=== PATIENT | female | born 1980 | race Caucasian/White ===

== ENCOUNTER 2023-01-10 19:26 | Emergency (ER) | payer SELFPAY ==
[2023-01-10 20:59] LABS: SARS-COV-2 RT PCR NEGATIVE (NEGATIVE)
--- NOTE | 2023-01-10 21:26 | EDPHYS ---
Physician Documentation [facility] Name: Lilliam Leahy Age: 42 yrs Sex: Female : 1980 Arrival Date: 01/10/2023 Time: 19:30 Bed 9 Private MD: ED Physician Hamlet Lopez HPI: 01/10 20:37 This 42 yrs old Female presents to ER via Ambulatory with complaints of Headache, Ear kb Pain, Sore Throat. 20:37 The patient presents with pain, mild. The complaints affect the right ear and left ear. kb Onset: The symptoms/episode began/occurred today. Modifying factors: The symptoms are alleviated by nothing, the symptoms are aggravated by nothing. Associated signs and symptoms: Pertinent positives: headache, sore throat. Severity of symptoms: At their worst the symptoms were mild in the emergency department the symptoms are unchanged. The patient has not experienced similar symptoms in the past. The patient has not recently seen a physician. Historical: - Allergies: 20:02 PENICILLINS; aa9 - PMHx: 20:02 neuropathy; aa9 - PSHx: 20:02 Total abdominal hysterectomy; Tonsillectomy; back sx; aa9 - Immunization history:: Client reports having NOT received the Covid vaccine. - Social history:: Smoking status: Patient reports the use of cigarette tobacco products, smokes one pack cigarettes per day. ROS: 20:37 Constitutional: Negative for fever, chills, and weight loss. kb 20:37 ENT: Positive for ear pain, sore throat. 20:37 Neuro: Positive for headache. 20:37 All other systems are negative. Exam: 20:37 Constitutional: This is a well developed, well nourished patient who is awake, alert, kb and in no acute distress. Head/Face: Normocephalic, atraumatic. Cardiovascular: Regular rate and rhythm with a normal S1 and S2. No gallops, murmurs, or rubs. No pulse deficits. Respiratory: Respirations even and unlabored. No increased work of breathing. Talking in full sentences Abdomen/GI: Soft, non-tender. No distention Skin: Warm, dry with normal turgor. Normal color. MS/ Extremity: Pulses equal, no cyanosis. Neurovascular intact. Full, normal range of motion. Neuro: Awake and alert, GCS 15, oriented to person, place, time, and situation. Moves all extremities. Normal gait. 20:37 ENT: Posterior pharynx: Airway: normal, no evidence of obstruction, swelling, is not appreciated, erythema, that is moderate, exudate, is not appreciated. Vital Signs: 20:01 Weight 72.57 kg (R); Height 5 ft. 4 in. (R); Pain 2/10; aa9 20:13 BP 100 / 73; Pulse 92; Resp 17 S; Temp 97.8(O); Pulse Ox 99% on R/A; aa9 20:01 Body Mass Index 27.46 (72.57 kg, 162.56 cm) aa9 20:01 Pain Scale: Adult aa9 MDM: 19:45 Patient medically screened. kb 20:38 Differential diagnosis: otitis media, otitis externa, ruptured TM, acute otalgia, kb strep, pharyngitis. Data reviewed: vital signs, nurses notes. 21:00 Counseling: I had a detailed discussion with the patient and/or guardian regarding: the kb historical points, exam findings, and any diagnostic results supporting the discharge/admit diagnosis, lab results, the need for outpatient follow up, a family practitioner, to return to the emergency department if symptoms worsen or persist or if there are any questions or concerns that arise at home. 01/10 19:51 Order name: Strep; Complete Time: 20:46 kb 01/10 19:51 Order name: COVID-19/FLU A+B; Complete Time: 21:00 kb 01/10 20:46 Order name: Throat Culture EDMS Administered Medications: No medications were administered Disposition: 01/11 07:14 Co-signature as Attending Physician, Hamlet Lopez MD I reviewed the patient's care sp4 provided by the Advanced Practice Provider and agree with the diagnosis and treatment plan. Disposition Summary: 01/10/23 21:01 Discharge Ordered Location: Home kb Condition: Stable kb Diagnosis - Acute pharyngitis, unspecified kb Followup: kb - With: Emergency Department - When: As needed - Reason: Worsening of condition Followup: kb - With: Private Physician - When: 2 - 3 days - Reason: Recheck today's complaints, Continuance of care, Re-evaluation by your physician Discharge Instructions: - Discharge Summary Sheet kb - Pharyngitis, [id number] kb Forms: - Medication Reconciliation Form kb - Thank You Letter kb - Antibiotic Education kb - Prescription Opioid Use kb Signatures: Dispatcher [employer] Saritha Morris, Heena Najera, RN RN aa9 Hamlet Lopez MD MD sp4
--- NOTE | 2023-01-10 21:26 | ER ---
Nurse's Notes [facility] Name: Lilliam Leahy Age: 42 yrs Sex: Female : 1980 Arrival Date: 01/10/2023 Time: 19:30 Bed 9 Private MD: Diagnosis: Acute pharyngitis, unspecified Presentation: 01/10 20:01 Chief complaint: Patient states: I have a headache and both ears hurt that started aa9 today, and I have a sore throat. no fever of chills. Coronavirus screen: Vaccine status: Patient reports being unvaccinated. Ebola Screen: No symptoms or risks identified at this time. Initial Sepsis Screen: Does the patient meet any 2 criteria? No. Patient's initial sepsis screen is negative. Does the patient have a suspected source of infection? No. Patient's initial sepsis screen is negative. Risk Assessment: Do you want to hurt yourself or someone else? Patient reports no desire to harm self or others. Onset of symptoms was January 10, 2023. 20:01 Method Of Arrival: Ambulatory aa9 20:01 Acuity: SOFY 4 aa9 Triage Assessment: 21:05 General: Appears in no apparent distress. comfortable, Behavior is calm, cooperative. aa9 Pain: Pain began 2-3 days ago. Also complains of no other associated symptoms. Historical: - Allergies: 20:02 PENICILLINS; aa9 - PMHx: 20:02 neuropathy; aa9 - PSHx: 20:02 Total abdominal hysterectomy; Tonsillectomy; back sx; aa9 - Immunization history:: Client reports having NOT received the Covid vaccine. - Social history:: Smoking status: Patient reports the use of cigarette tobacco products, smokes one pack cigarettes per day. Screenin:14 [facility] ED Fall Risk Assessment (Adult) History of falling in the last 3 months, aa9 including since admission No falls in past 3 months (0 pts) Confusion or Disorientation No (0 pts) Intoxicated or Sedated No (0 pts) Impaired Gait No (0 pts) Mobility Assist Device Used No (0 pt) Altered Elimination No (0 pt) Score/Fall Risk Level 0 - 2 = Low Risk Oriented to surroundings, Maintained a safe environment. Abuse screen: Denies threats or abuse. Denies injuries from another. Nutritional screening: No deficits noted. Tuberculosis screening: No symptoms or risk factors identified. Assessment: 20:13 General: Appears in no apparent distress. slender, well groomed, Behavior is calm, aa9 cooperative. Pain: Complains of pain in scalp, right ear and left ear Pain currently is 2 out of 10 on a pain scale. Neuro: Level of Consciousness is awake, alert, obeys commands, Oriented to person, place, time, situation. Cardiovascular: Patient's skin is warm and dry. Respiratory: Airway is patent Respiratory effort is even, unlabored. 21:05 Reassessment: Patient appears in no apparent distress at this time. Patient and/or aa9 family updated on plan of care and expected duration. Pain level reassessed. Patient is alert, oriented x 3, equal unlabored respirations, skin warm/dry/pink. Patient states symptoms have improved. Vital Signs: 20:01 Weight 72.57 kg (R); Height 5 ft. 4 in. (R); Pain 2/10; aa9 20:13 BP 100 / 73; Pulse 92; Resp 17 S; Temp 97.8(O); Pulse Ox 99% on R/A; aa9 20:01 Body Mass Index 27.46 (72.57 kg, 162.56 cm) aa9 20:01 Pain Scale: Adult aa9 ED Course: 19:30 Patient arrived in ED. ja2 19:30 Saritha Stiles FNP-C [facility]. kb 19:30 Hamlet Lopez MD is Attending Physician. kb 20:01 Heena Duarte, RN is Primary Nurse. aa9 20:02 Triage completed. aa9 20:03 Arm band placed on. aa9 20:14 Patient has correct armband on for positive identification. Bed in low position. Call aa9 light in reach. 21:05 No provider procedures requiring assistance completed. Patient did not have IV access aa9 during this emergency room visit. Administered Medications: No medications were administered Medication: 21:06 VIS not applicable for this client. aa9 Outcome: 21:01 Discharge ordered by . kb 21:06 Discharged to home ambulatory. aa9 21:06 Condition: stable 21:06 Discharge instructions given to patient, Instructed on discharge instructions, follow up and referral plans. Demonstrated understanding of instructions, follow-up care. 21:06 Patient left the ED. aa9 Signatures: Saritha Stiles FNP-C [employer] Maite Sevilla Aylin, RN RN aa9
[2023-01-10 21:53] VITALS: BP 100/73; TEMP 97.8; O2SAT 99
== END 2023-01-10 21:06 | disposition home or self-care (01) ==
LOC: ER 19:26
DX: J02.9 Acute pharyngitis, unspecified (principal); Z20.822 Contact with and (suspected) exposure to COVID-19
CPT/HCPCS: 0240U; 87070; 87081; 99281

== ENCOUNTER 2023-02-20 18:14 | Emergency (ER) | payer OTHER ==
--- OUTSIDE RECORDS SUMMARY | 2023-02-20 18:18 | XMS REPORT | Continuity of Care Document ---
:1980 Author Organization [facility] t Address [address] [facility] [address] [place] [address] Care Team Providers Name Role Phone ROGER MAYS Primary Care Physician Unavailable WAQAR ALBA APRN Attending Clinician Unavailable JUANITA OVERTON Attending Clinician Unavailable YULIANA KINCAID Attending Clinician Unavailable MICHELLE MACK Attending Clinician Unavailable MEERA MUSA Attending Clinician Unavailable Payers Payer Name Policy Type Policy Number Effective Date Expiration Date S jatin HARDWICKTNA MP CVS 9 [id number] 2023 00:00:00 [place] [address]: [facility] Problems Condition Condition Condition Status Onset Resolution Last Treating Co mments Source Name Details Category Date Date Treatment Clinician Date Vaginitis Problem Inactiv CYRIL TU e S Health Fracture Problem Inactiv TREVER U of distal e S phalanx of Health toe of left foot Urinary Problem Active [facility] tract S infection Health Toothache Problem Active TREVER U S Health Contusion Problem Active TREVER U of forearm S Health Fracture Problem Inactiv TREVER U of distal e S end of Health right fibula Conjunctiv Problem Inactiv CH[facility] TOLU itis e S Health Otitis Problem Inactiv [facility] media e S Health Back pain Problem Inactiv CYRIL TU e S Health Allergies, Adverse Reactions, Alerts Allergy Allergy Status Severity Reaction(s) Onset Inactive Treating Comm ents Source Name Type Date Date Clinician Penicill Allergy Active Unknown 2020-10 TREVER U in to 0-06 S substanc 00:00: Health e 00 Penicill Allergy Active Unknown TREVER U in to 3-22 S substanc 00:00: Health e 00 Penicill Allergy Active Unknown 2018-10 TREVER U in to 0-02 S substanc 00:00: Health e 00 Social History Social Habit Start Date Stop Date Quantity Comments Source History of tobacco [facility] Health use Sex Assigned At [birth year] Female [facility] 00:[facility]:00 00:00:00 Smoking Status Start Date Stop Date Source Smokes tobacco daily (finding) 2021-07-25 20:24:00 [facility] Medications Ordered Filled Start Stop Current Ordering Indication Dosage Frequency Signature Comments Components Source Medication Medication Date Date Medication? Clinician (SIG) Name Name Doxycycline No 100mg Twice A [facility] Monohydrate 3-22 Day S (Doxycyclin 14:59: Health e) 100 Mg 00 CAPSULE Metronidazo No 500mg Twice A [facility] le (Flagyl) 3-22 Day S 500 Mg TAB 14:59: Health 00 Doxycycline No 100mg Twice A [facility] Monohydrate 3-22 Day S (Doxycyclin 14:59: Health e) 100 Mg 00 CAPSULE Metronidazo 2020- No 500mg Twice A C [facility]RISTU le (Flagyl) - 04-02 Day S 500 Mg TAB 14:59: 00:00 Health 00 :00 Methylpredn 2020-0 No 1 As TREVER U isolone 1-16 Directed S (Medrol 04:01: Health Pack) 21 00 Tab/Dspk TAB Methylpredn 2020-0 No 1 As TREVER U isolone 1-16 Directed S (Medrol 04:01: Health Pack) 21 00 Tab/Dspk TAB Cefuroxime 2020-0 No 500mg Twice A [facility] ISTU Axetil 1-16 Day S (Ceftin) 04:01: Health 500 Mg TAB 00 Meloxicam 0 No 15mg Daily as CH[facility] TOLU (Mobic) 15 1-16 needed for S Mg TAB 04:01: Pain Health 00 Methylpredn 2020-0 No 1 As TREVER U isolone 1-16 Directed S (Medrol 04:01: Health Dose-Pack) 00 21 Tab/Dspk TAB Meloxicam 2020-0 2020- No 15mg Daily as [facility] (Mobic) 15 1-16 02-16 needed for S Mg TAB 04:01: 00:00 Pain Health 00 :00 Meloxicam 2020-0 2020- No 15mg Daily as [facility] (Mobic) 15 1-16 02-16 needed for S Mg TAB 04:01: 00:00 Pain Health 00 :00 Cefuroxime 2020- No 500mg Twice A [facility] Axetil 11-04 Day S (Ceftin) 04:01: 00:00 Health 500 Mg TAB 00 :00 Cefuroxime 2020- No 500mg Twice A [facility] Axetil 11-04 Day S (Ceftin) 04:01: 00:00 Health 500 Mg TAB 00 :00 Gentamicin 2018-10 No 1 Three TREVER U Sulfate 0-02 Times A S (Garamycin 11:23: Day Health Oph Oint) 00 3.5 Gm OINT..GM. Meclizine 2018-10 No 25mg Three [facility] Hcl 0-02 Times A S (Antivert) 11:23: Day as Healt h 25 Mg TAB 00 needed for Dizziness Gentamicin 2018-10 No 1 Three TREVER U Sulfate 0-02 Times A S (Garamycin 11:23: Day Health Oph Oint) 00 3.5 Gm OINT..GM. Meclizine 2018-10 No 25mg Three [facility] Hcl 0-02 Times A S (Antivert) 11:23: Day as Healt h 25 Mg TAB 00 needed for Dizziness Azithromyci 2018-10 No 1 As TREVER U n 0-02 Directed S 11:23: Health 00 Gentamicin 2019 No 1 Three TREVER U Sulfate 0-02 Times A S 11:23: Day Health 00 Meclizine 2018-10 No 25mg Three [facility] Hcl 0-02 Times A S 11:23: Day as Health 00 needed for Dizziness Gentamicin 2019 No 1 Three TREVER U Sulfate 0-02 Times A S (Garamycin 11:23: Day Health Oph Oint) 00 3.5 Gm OINT..GM. Meclizine 2018-10 No 25mg Three [facility] Hcl 0-02 Times A S (Antivert) 11:23: Day as Healt h 25 Mg TAB 00 needed for Dizziness Azithromyci 2019 2019- No 1 As CYRIL LEMOS n 0-02 11-02 Directed S (Zithromax 11:23: 00:00 Health Z-James) 6 00 :00 Tab/Pkg TAB Azithromyci 2019 2019- No 1 As CYRIL mullins 0-02 11-02 Directed S (Zithromax 11:23: 00:00 Health Z-James) 6 00 :00 Tab/Pkg TAB Azithromyci 2018-10- No 1 As CYRIL TU n 0-02 11-02 Directed S (Zithromax 11:23: 00:00 Health Z-James) 6 00 :00 Tab/Pkg TAB Acetaminoph 2019- No 1 Every 6 [facility] en/Codeine 03-14 10-02 Hours S Phosphate 13:50: 00:00 Health (Tylenol 00 :00 #3) 1 Tab TAB Acetaminoph 2018- No 1 Every 6 [facility] en/Codeine 03-14 10-02 Hours S Phosphate 13:50: 00:00 Health (Tylenol 00 :00 #3) 1 Tab TAB Acetaminoph 2018- No 1 Every 6 [facility] en/Codeine 03-14 10-02 Hours S Phosphate 13:50: 00:00 Health (Tylenol 00 :00 #3) 1 Tab TAB Acetaminoph 2013-10- No 1 Every 6 [facility] en/Codeine 11-03 Hours as S Phosphate 15:47: 00:00 needed for H ealth (Tylenol 00 :00 Moderate #3) 1 Tab To Severe TAB Pain(4-10) Clindamycin 2013-10- No 300mg Four Times [facility] Hcl 11-03 Daily S (Cleocin) 15:47: 00:00 Health 300 Mg CAP 00 :00 Acetaminoph 2013-10- No 1 Every 6 CH [facility] en/Codeine 11-03 Hours as S Phosphate 15:47: 00:00 needed for H ealth (Tylenol 00 :00 Moderate #3) 1 Tab To Severe TAB Pain(4-10) Clindamycin 2013-10- No 300mg Four Times [facility] Hcl 11-03 Daily S (Cleocin) 15:47: 00:00 Health 300 Mg CAP 00 :00 Acetaminoph 2013-10- No 1 Every 6 CH [facility] en/Codeine 11-03 Hours as S Phosphate 15:47: 00:00 needed for H ealth (Tylenol 00 :00 Moderate #3) 1 Tab To Severe TAB Pain(4-10) Clindamycin 2013-10- No 300mg Four Times [facility] Hcl 11-03 Daily S (Cleocin) 15:47: 00:00 Health 300 Mg CAP 00 :00 Tramadol 2013-10- No 50mg Every 6 CYRIL TU Hcl 10-2219 Hours as S (Ultram) 50 14:00: 00:00 needed for Health Mg TAB 00 :00 Pain Tramadol 2013-10- No 50mg Every 6 CYRIL TU Hcl 10-2219 Hours as S (Ultram) 50 14:00: 00:00 needed for Health Mg TAB 00 :00 Pain Tramadol 2013-10- No 50mg Every 6 CYRIL TU Hcl 10-2219 Hours as S (Ultram) 50 14:00: 00:00 needed for Health Mg TAB 00 :00 Pain Nitrofurant 2013-10- No 100mg Twice A C HRISTU oin 10-22 Day S Macrocrysta 14:00: 00:00 Healt h ls 00 :00 (Macrobid) 100 Mg CAP Nitrofurant 2013-10- No 100mg Twice A C [facility]RISTU oin 10-22 Day S Macrocrysta 14:00: 00:00 Healt h ls 00 :00 (Macrobid) 100 Mg CAP Nitrofurant 2013-10- No 100mg Twice A C [facility]RIST[facility] oin 10-22 Day S Macrocrysta 14:00: 00:00 Healt h ls 00 :00 (Macrobid) 100 Mg CAP Gabapentin No 600mg Twice A (Neurontin) Day S 600 Mg TAB Health Lorazepam No 1mg Bedtime [facility] (Ativan) 1 S Mg TAB Health Venlafaxine No 75mg Daily [facility] Hcl S (Effexor Health Xr) 75 Mg CAPCR Acetaminoph No 1 Three [facility] en/Hydrocod Times A S one Bit Day Health Cyclobenzap No 10mg Bedtime rine Hcl S Health Estradiol No 1mg Bedtime [facility] S Health Gabapentin No 600mg Twice A CYRIL Day S Health Lorazepam No 1mg Bedtime [facility] Health Venlafaxine No 75mg Daily [facility] Hcl S Health Acetaminoph No 1 Three [facility] en/Hydrocod Times A S one [facility] 10/325) 1 Tab TAB Cyclobenzap No 10mg Bedtime CYRIL TU rine Hcl S (Flexeril) Health 10 Mg TAB Estradiol No 1mg Bedtime [facility] (Estrace) 1 S Mg TAB Health Gabapentin No 600mg Twice A (Neurontin) Day S 600 Mg TAB Health Lorazepam No 1mg Bedtime [facility] (Ativan) 1 S Mg TAB Health Venlafaxine No 75mg Daily [facility] Hcl S (Effexor Health Xr) 75 Mg CAPCR Acetaminoph No 1 Three [facility] en/Hydrocod Times A S one [facility] ([place] [address]) 1 Tab TAB Cyclobenzap No 10mg Bedtime rine Hcl S (Flexeril) Health 10 Mg TAB Estradiol No 1mg Bedtime [facility] (Estrace) 1 S Mg TAB Health Gabapentin No 600mg Twice A (Neurontin) Day S 600 Mg TAB Health Lorazepam No 1mg Bedtime [facility] (Ativan) 1 S Mg TAB Health Venlafaxine No 75mg Daily [facility] Hcl S (Effexor Health Xr) 75 Mg CAPCR Acetaminoph No 1 Three [facility] en/Hydrocod Times A S one [facility] ([place] [address]) 1 Tab TAB Cyclobenzap No 10mg Bedtime rine Hcl S (Flexeril) Health 10 Mg TAB Estradiol No 1mg Bedtime [facility] (Estrace) 1 S Mg TAB Health Esomeprazol 2019- No 40mg Bedtime CHRI TOLU e Magnesium 10-02 S (Nexium) 40 00:00 Health Mg CAPCR :00 Gabapentin 2019- No 300mg Twice A CH[facility] TOLU (Neurontin) 10- Day S 300 Mg CAP 00:00 Health :00 Esomeprazol 2019- No 40mg Bedtime CHRI [facility] e Magnesium 10-02 S (Nexium) 40 00:00 Health Mg CAPCR :00 Gabapentin 2019- No 300mg Twice A CH[facility] (Neurontin) 10-02 Day S 300 Mg CAP 00:00 Health :00 Esomeprazol 2019- No 40mg Bedtime CHRI [facility] e Magnesium 10-02 S (Nexium) 40 00:00 Health Mg CAPCR :00 Gabapentin 2019- No 300mg Twice A CH[facility] (Neurontin) 10-02 Day S 300 Mg CAP 00:00 Health :00 Cyclobenzap 2015- No 10mg Twice A [facility] rine Hcl 03-19 Day S (Flexeril) 00:00 Health 10 Mg TAB :00 Gabapentin 2015- No 300mg Three TREVER U (Neurontin) -19 Times A S 300 Mg CAP 00:00 Day Health :00 Lorazepam 2015- No .5mg Twice A TREVER U (Ativan) 01-05 Day S 0.5 Mg TAB 00:00 Health :00 Omeprazole 2015- No 40mg Bedtime CYRIL LEMOS (Prilosec) 01-05 S 40 Mg CPDR 00:00 Health :00 Cyclobenzap 2015- No 10mg Twice A CH[facility]U rine Hcl 01-05 Day S (Flexeril) 00:00 Health 10 Mg TAB :00 Gabapentin 2015- No 300mg Three TREVER U (Neurontin) - Times A S 300 Mg CAP 00:00 Day Health :00 Lorazepam 2015- No .5mg Twice A TREVER U (Ativan) 01-05 Day S 0.5 Mg TAB 00:00 Health :00 Omeprazole 2015- No 40mg Bedtime CYRIL LEMOS (Prilosec) 01-05 S 40 Mg CPDR 00:00 Health :00 Cyclobenzap 2015- No 10mg Twice A [facility] rine Hcl 01-05 Day S (Flexeril) 00:00 Health 10 Mg TAB :00 Gabapentin 2015- No 300mg Three TREVER U (Neurontin) 01-05 Times A S 300 Mg CAP 00:00 Day Health :00 Lorazepam 2015- No .5mg Twice A TREVER U (Ativan) 01-05 Day S 0.5 Mg TAB 00:00 Health :00 Omeprazole 2015- No 40mg Bedtime CYRIL LEMOS (Prilosec) 01-05 S 40 Mg CPDR 00:00 Health :00 Miscellaneo 2014- No 0 Xx For [facility] 11-15 Order Sets S Information 00:00 Health (No Home :00 Meds) [facility] Miscellaneo 2014- No 0 Xx For [facility] 11-15 Order Sets S Information 00:00 Health (No Home :00 Meds) [facility] Miscellaneo 2014- No 0 Xx For [facility] 11-15 Order Sets S Information 00:00 Health (No Home :00 Meds) [facility] Vital Signs Vital Name Observation Time Observation Value Comments Source BP Diastolic 2021-07-25 18:08:00 86 mm[Hg] [facility] BP Systolic 2021-07-25 18:08:00 116 mm[Hg] [facility] Heart Rate 2021-07-25 18:08:00 96 /min [facility] Respiratory rate 2021-07-25 18:08:00 20 /min [facility] Body Temperature 2021-07-25 18:08:00 98.3 [degF] [facility] BP Diastolic 2021-01-08 13:55:00 72 mm[Hg] [facility] BP Systolic 2021-01-08 13:55:00 109 mm[Hg] [facility] Heart Rate 2021-01-08 13:55:00 76 /min [facility] Respiratory rate 2021-01-08 13:55:00 20 /min [facility] Body Temperature 2021-01-08 13:55:00 98.3 [degF] [facility] Heart Rate 2020-11-04 05:26:00 87 /min [facility] Respiratory rate 2020-11-04 05:26:00 20 /min [facility] Body Temperature 2020-11-04 05:26:00 98.5 [degF] [facility] BP Diastolic 2020-11-04 05:26:00 55 mm[Hg] [facility] BP Systolic 2020-11-04 05:26:00 99 mm[Hg] [facility] BP Diastolic 2020-11-04 03:37:00 71 mm[Hg] [facility] BP Systolic 2020-11-04 03:37:00 124 mm[Hg] [facility] Heart Rate 2020-11-04 03:37:00 96 /min [facility] Respiratory rate 2020-11-04 03:37:00 20 /min [facility] Body Temperature 2020-11-04 03:37:00 98.5 [degF] [facility] Body Temperature 2019-07-21 12:00:00 98.4 [degF] [facility] Heart Rate 2019-07-21 12:00:00 84 /min [facility] Respiratory rate 2019-07-21 12:00:00 18 /min [facility] BP Systolic 2019-07-21 12:00:00 95 mm[Hg] [facility] BP Diastolic 2019-07-21 12:00:00 52 mm[Hg] [facility] Heart Rate 2019-07-21 11:41:00 84 /min [facility] Respiratory rate 2019-07-21 11:41:00 18 /min [facility] BP Systolic 2019-07-21 11:41:00 95 mm[Hg] [facility] BP Diastolic 2019-07-21 11:41:00 52 mm[Hg] [facility] Weight 2019-07-21 10:06:00 165 [lb_av] [facility] BMI (Body Mass Index) 2019-07-21 10:06:00 28.3 kg/m2 [facility] Procedures Procedure Date / Time Performed Performing Clinician Sour e X-ray of foot, three or 2021-07-25 00:00:00 [facility] [employer] more views Encounters Start End Encounter Admission Attending Care Care Encounter Source Date/Time Date/Time Type Type Clinicians Facility Department ID 2021-01-08 Inpatient TERRIE BROOKE [id number] [facility] 09:00:[address] [place] [address] 2023-03-20 2023-03-20 Outpatient NAOMI OVERTON [id number] Naomi 15:30:00 15:30:00 JUANITA allred 2022-09-22 2022-09-22 Emergency ER TERRIE KINCAID [id number] [facility] 17:29:00 22:00:00 YULIANA [id number] S Health 2021-07-25 2021-07-25 Departed ER TERRIE MACK [id number] [facility] 18:43:00 20:30:00 Emergency MICHELLE [address] [facility] 2021-01-08 2021-01-08 Departed [facility] EA07 [id number] [facility] 15:00:00 16:42:00 Emergency AT [facility] [address] [facility] 2020-11-04 2020-11-04 Departed TERRIE MUSA [id number] [facility] 03:37:00 05:22:00 Emergency ESTES [address] [facility] 2019-07-21 2019-07-21 Departed [facility] EA07 [id number] [facility] 10:49:00 11:48:00 Emergency AT [facility] [address] Room Health Results Test Description Test Time Test Comments Results Result Comments Source Urine color determination 2021-01-08 14:41:00 Test Item Value Reference Range Interpretation Comme nts Urine Color (test code = 5778-6) YELLOW STR/YELLOW [facility] urine appearance [id number] 14:41:00 Test Item Value Reference Range Interpretation Comments Urine Appearance (test code = 5767-9) CLEAR CLEAR [facility] pH measurement by test [id number] 14:41:00 Test Item Value Reference Range Interpretation Comments Urine pH (test code = 5803-2) 7.0 5.0-8.0 [facility] gravity of Urine by Test [id number] 14:41:00 Test Item Value Reference Range Interpretation Comments Urine Specific [place] (test code = 1.010 1.005-1.030 5811-5) [facility] protein measurement by automated test strip (mass/volume) 2021-01-08 14:41:00 Test Item Value Reference Range Interpretation Comments Urine Protein (test code = 33038-8) NEGATIVE NEGATIVE [facility] glucose measurement by automated test strip (mass/volume) 2021-01-08 14:41:00 Test Item Value Reference Range Interpretation Comments Urine Glucose (UA) (test code = NEGATIVE NEGATIVE 90550-2) [facility] ketones measurement by test strip (mass/volume)2021-01-08 14:41:00 Test Item Value Reference Range Interpretation Comments Urine Ketones (test code = 5797-6) NEGATIVE NEGATIVE [facility] erythrocytes count by automated test strip (number/volume) 2021-01-08 14:41:00 Test Item Value Reference Range Interpretation Comments Urine Occult Blood (test code = NEGATIVE NEGATIVE 80390-7) [facility] nitrite detection by automated test [id number] 14:41:00 Test Item Value Reference Range Interpretation Comments Urine Nitrite (test code = 77858-2) NEGATIVE NEGATIVE [facility] total bilirubin detection by test [id number] 14:41:00 Test Item Value Reference Range Interpretation Comments Urine Bilirubin (test code = 5770-3) NEGATIVE NEGATIVE [facility] urobilinogen measurement by automated test strip (mass/volume)2021-01-08 14:41:00 Test Item Value Reference Range Interpretation Comments Urine Urobilinogen (test code = 0.2 0.2-1.0 20274-3) [facility] leukocyte esterase detection by automated test strip 2021-01-08 14:41:00 Test Item Value Reference Range Interpretation Comments Urine Leukocyte Esterase (test code NEGATIVE NEGATIVE = 19412-1) [facility] comment 14:41:00 Test Item Value Reference Range Interpretation Comments Urine Culture Indicated (test code = YES 8265-1) [facility] comment 14:41:00 Test Item Value Reference Range Interpretation Comments Urine Culture Reflexed NO,C&S NOT INDICATED (test code = 8266-9) [facility] HealthUrinalysis specimen collection [id number] 14:41:00 Test Item Value Reference Range Interpretation Comments Urine Collection Type (test code = VOIDED 56522-1) [facility] beta-human chorionic gonadotropin (BhCG) detection 2021-01-08 14:41:00 Test Item Value Reference Range Interpretation Comments Urine Test (test code = NEGATIVE NEGATIVE 2-1) [facility] color [id number] 03:50:00 Test Item Value Reference Range Interpretation Comments Urine Color (test code = 5778-6) YELLOW STR/YELLOW [facility] urine appearance [id number] 03:50:00 Test Item Value Reference Range Interpretation Comments Urine Appearance (test code = 5767-9) CLEAR CLEAR [facility] pH measurement by test [id number] 03:50:00 Test Item Value Reference Range Interpretation Comments Urine pH (test code = 5803-2) 8.0 5.0-8.0 [facility] gravity of Urine by Test [id number] 03:50:00 Test Item Value Reference Range Interpretation Comments Urine Specific [place] (test code = 1.010 1.005-1.030 5811-5) [facility] protein measurement by automated test strip (mass/volume) 2020-11-04 03:50:00 Test Item Value Reference Range Interpretation Comments Urine Protein (test code = 05735-7) NEGATIVE NEGATIVE [facility] glucose measurement by automated test strip (mass/volume) 2020-11-04 03:50:00 Test Item Value Reference Range Interpretation Comments Urine Glucose (UA) (test code = NEGATIVE NEGATIVE 84925-3) [facility] ketones measurement by test strip (mass/volume)2020-11-04 03:50:00 Test Item Value Reference Range Interpretation Comments Urine Ketones (test code = 5797-6) NEGATIVE NEGATIVE [facility] count by automated test strip (number/volume) 2020-11-04 03:50:00 Test Item Value Reference Range Interpretation Comments Urine Occult Blood (test code = NEGATIVE NEGATIVE 14688-4) [facility] nitrite detection by automated test [id number] 03:50:00 Test Item Value Reference Range Interpretation Comments Urine Nitrite (test code = 43323-7) NEGATIVE NEGATIVE [facility] total bilirubin detection by test [id number] 03:50:00 Test Item Value Reference Range Interpretation Comments Urine Bilirubin (test code = 5770-3) NEGATIVE NEGATIVE [facility] urobilinogen measurement by automated test strip (mass/volume)2020-11-04 03:50:00 Test Item Value Reference Range Interpretation Comments Urine Urobilinogen (test code = 0.2 0.2-1.0 63716-2) [facility] esterase detection by automated test strip 2020-11-04 03:50:00 Test Item Value Reference Range Interpretation Comments Urine Leukocyte Esterase (test code NEGATIVE NEGATIVE = 96357-1) [facility] 03:50[facility]00 Test Item Value Reference Range Interpretation Comments Urine Culture Indicated (test code = YES 8265-1) [facility] 03:50:00 Test Item Value Reference Range Interpretation Comments Urine Culture Reflexed NO,C&S NOT INDICATED (test code = 8266-9) [facility] Center[facility] specimen collection [id number] 03:50:00 Test Item Value Reference Range Interpretation Comments Urine Collection Type (test code = VOIDED 65378-3) [facility] beta-human chorionic gonadotropin (BhCG) detection 2020-11-04 03:50:00 Test Item Value Reference Range Interpretation Comments Urine Test (test code = NEGATIVE NEGATIVE 2-1) [facility]
[2023-02-20] MEDS ORDERED: NA CHLORIDE 0.9% 1,000 ML ONE ×2 (20:09→22:28)
[2023-02-20] MEDS ORDERED: ONDANSETRON 4 MG/2 ML VIAL ONE (20:09)
[2023-02-20] MEDS ORDERED: FAMOTIDINE 20 MG/2 ML VIAL IV ONE (20:09)
[2023-02-20 20:33] LABS: Absolute Lymphocytes (CBC) 6.1 K/uL (0.7-4.9); Hematocrit 39.6 % (36.0-45.0); Lymphocytes % 39.1 % (15.3-44.8); MCV 91.8 fL (80-100); MPV 8.1 fL (7.6-11.3); RBC Red Blood Cell Count 4.31 M/uL (3.86-4.86)
[2023-02-20 21:02] LABS: Specific Gravity 1.007 (1.005-1.030); Urine Bilirubin NEGATIVE (Negative); Urine Blood Negative (Negative); Urine Clarity Clear (Clear); Urine Color Colorless (Yellow); Urine Glucose NEGATIVE (Negative); Urine Protein NEGATIVE (Negative); Urine Urobilinogen Normal (Normal); Urine pH 7.5 (5.0-7.0)
[2023-02-20 21:02] LABS: Albumin 3.6 g/dL (3.4-5.0); Bilirubin Total 0.3 mg/dL (0.2-1.0); Potassium 3.7 mEq/L (3.5-5.1); Protein, Total 7.4 g/dL (6.4-8.2)
--- NOTE | 2023-02-20 21:25 | RAD REPORT ---
EXAM DESCRIPTION: CTAbdomen Pelvis W Contrast - 02/20/2023 9:12 pm CLINICAL HISTORY: Abdominal pain. ABD PAIN COMPARISON: <Comparisons> TECHNIQUE: Biphasic CT imaging of the abdomen and pelvis was performed with 100 ml non-ionic IV cont rast. All CT scans are performed using dose optimization technique as appropriate and may include automated exposure control or mA/KV adjustment according to patient size. FINDINGS: The lung bases are clear. The liver, spleen, pancreas, adrenal glands and kidneys are within normal limits. No bowel obstruction, free air, free fluid or abscess. There is significant retained stool throughout the colon. The appendix is normal. No evidence of significant lymphadenopathy. No suspicious bony findings. IMPRESSION: No acute intra-abdominal or pelvic finding. Moderate constipation.
--- NOTE | 2023-02-20 22:29 | RAD REPORT ---
EXAM DESCRIPTION: RAD - Chest Single View - 02/20/2023 10:23 pm CLINICAL HISTORY: ABDOMINAL DISTENTION Chest pain. FINDINGS: Portable technique limits examination quality. The lungs are emphysematous but grossly clear. The heart is normal in size. No displaced fractures. IMPRESSION: COPD.
--- NOTE | 2023-02-20 23:08 | ER ---
Nurse's Notes [facility] Name: Lilliam Leahy Age: 42 yrs Sex: Female : 1980 Arrival Date: 02/20/2023 Time: 18:14 Bed 11 Private MD: Diagnosis: Acute pharyngitis, unspecified;Constipation, unspecified Presentation: 02/20 18:42 Chief complaint: Patient states: "I have a hiatal hernia and I've had irritation from aa5 my throat all the way down my stomach". Pt also reports abd bloating, pt denies nausea/vomiting. Onset of symptoms was February 2023. 18:42 Acuity: SOFY 3 aa5 18:43 Coronavirus screen: At this time, the client does not indicate any symptoms associated aa5 with coronavirus-19. Ebola Screen: Patient denies travel to an Ebola-affected area in the 21 days before illness onset. Initial Sepsis Screen: Does the patient meet any 2 criteria? HR > 90 bpm. Does the patient have a suspected source of infection? No. Patient's initial sepsis screen is negative. Risk Assessment: Do you want to hurt yourself or someone else? Patient reports no desire to harm self or others. 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 - Social history:: Smoking status: Patient reports the use of cigarette tobacco products. Screenin:24 [facility] ED Fall Risk Assessment (Adult) History of falling in the last 3 months, mb9 including since admission No falls in past 3 months (0 pts) Confusion or Disorientation No (0 pts) Intoxicated or Sedated No (0 pts) Impaired Gait No (0 pts) Mobility Assist Device Used No (0 pt) Altered Elimination No (0 pt) Score/Fall Risk Level 0 - 2 = Low Risk Oriented to surroundings, Maintained a safe environment, Educated pt \\T\\ family on fall prevention, incl call for assistance when getting out of bed. Abuse screen: Denies threats or abuse. Nutritional screening: No deficits noted. Tuberculosis screening: No symptoms or risk factors identified. Assessment: 20:21 General: Appears uncomfortable, Behavior is cooperative. Pain: Complains of pain in mb9 abdomen Pain radiates to neck Quality of pain is described as aching. Neuro: Level of Consciousness is awake, alert, obeys commands, Oriented to person, place, time, situation, Appropriate for age. Cardiovascular: Patient's skin is warm and dry. Respiratory: Airway is patent Respiratory effort is even, unlabored, Respiratory pattern is regular, symmetrical. GI: Abdomen is flat, non-distended, Bowel sounds present X 4 quads. Abd is soft and non tender X 4 quads. Reports constipation, nausea. Derm: Skin is pink, warm \\T\\ dry. Musculoskeletal: Range of motion: intact in all extremities. 22:00 Reassessment: No changes from previously documented assessment. Patient and/or family mb9 updated on plan of care and expected duration. Pain level reassessed. Patient is alert, oriented x 3, equal unlabored respirations, skin warm/dry/pink. Vital Signs: 18:43 BP 133 / 94; Pulse 93; Resp 16 S; Temp 97.3(TE); Pulse Ox 100% on R/A; Weight 73.94 kg aa5 (R); Height 5 ft. 4 in. (R); 22:27 BP 128 / 84; Pulse 96; Resp 17; Pulse Ox 98% ; mb9 18:43 Body Mass Index 27.98 (73.94 kg, 162.56 cm) aa5 ED Course: 18:26 Patient arrived in ED. am2 18:37 Drake Edgar PA is PHCP. cp 18:37 Drake Guajardo MD is Attending Physician. cp 18:42 Arm band placed on. aa5 18:43 Triage completed. aa5 19:54 Theresa Vivas, VITOR is Primary Nurse. mb9 20:12 Radiology exam delayed due to lab results not completed at this time. (BUN/Creatinine) jg10 IV insertion attempt and/or patient not having appropriate IV at this time. 20:20 CBC with Diff Sent. mb9 20:20 CMP Sent. mb9 20:20 Lipase Sent. mb9 20:24 Bed in low position. Call light in reach. Side rails up X 1. Client placed on mb9 continuous cardiac and pulse oximetry monitoring. NIBP monitoring applied. 20:24 Inserted saline lock: 22 gauge in right antecubital area, using aseptic technique. mb9 20:24 No provider procedures requiring assistance completed. mb9 20:32 Urinalysis w/ reflexes Sent. mb9 20:32 Test, Urine Sent. mb9 20:54 [place] Screen Profile Sent. mb9 20:54 Strep Sent. mb9 21:14 CT Abd/Pelvis - IV Contrast Only In Process Unspecified. EDMS 22:25 XRAY Chest (1 view) In Process Unspecified. EDMS 23:07 Lambert Cabrera MD is Referral Physician. cp 23:30 IV discontinued, intact, bleeding controlled, No redness/swelling at site. Pressure mb9 dressing applied. Administered Medications: 20:05 Drug: NS 0.9% IV 1000 ml Route: IV; Rate: 1 bolus; Site: left antecubital; mb9 20:05 Drug: Famotidine IVP 20 mg Route: IVP; Site: right antecubital; mb9 20:54 Follow up: Response: No adverse reaction mb9 20:09 Drug: Ondansetron IVP 4 mg Route: IVP; Site: right antecubital; mb9 20:54 Follow up: Response: No adverse reaction mb9 22:27 Drug: NS 0.9% IV 1000 ml Route: IV; Rate: 1 bolus; Site: right antecubital; mb9 23:29 Drug: Lactulose PO 30 grams Volume: 45 ml; Route: PO; mb9 Medication: 20:24 VIS not applicable for this client. mb9 Outcome: 23:08 Discharge ordered by . cp 23:29 Discharged to home ambulatory. mb9 23:29 Condition: good 23:29 Discharge instructions given to patient, family, Instructed on discharge instructions, follow up and referral plans. Demonstrated understanding of instructions, follow-up care, medications, Prescriptions given X 2. 23:30 Patient left the ED. mb9 Signatures: Dispatcher [employer] EDMS Lianet Lerner, RN RN aa5 Drake Edgar PA PA Wendy Villalobos Juliet j0 Theresa Vivas RN RN mb9
--- NOTE | 2023-02-20 23:08 | EDPHYS ---
Physician Documentation [facility] Name: Lilliam Leahy Age: 42 yrs Sex: Female : 1980 Arrival Date: 02/20/2023 Time: 18:14 Bed 11 Private MD: NINA Physician Drake Guajardo HPI: 02/20 20:00 This 42 yrs old Female presents to ER via Ambulatory with complaints of Abdominal cp Distention, Sore Throat. 20:00 The patient presents with abdominal pain abdominal distention that is diffuse. Onset: cp The symptoms/episode began/occurred gradually. Associated signs and symptoms: Pertinent positives: constipation, sore throat, Pertinent negatives: anorexia, blood in stools, chest pain, fever, vomiting. The symptoms are described as waxing/waning. Severity of pain: in the emergency department the pain is unchanged despite home interventions. 20:00 Patient reports reports history of chronic constipation. Reports last normal bowel cp movement was couple weeks ago. Has had small bowel movements. C/o sore throat and pain to epigastric area. History of hernia. 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 - Social history:: Smoking status: Patient reports the use of cigarette tobacco products. ROS: 20:05 Constitutional: Negative for body aches, chills, fever, poor PO intake, weight loss. cp 20:05 Eyes: Negative for injury, pain, redness, and discharge. cp 20:05 ENT: Positive for sore throat, Negative for drainage from ear(s), ear pain, difficulty swallowing, difficulty handling secretions. 20:05 Cardiovascular: Negative for chest pain, edema, palpitations. 20:05 Respiratory: Negative for cough, shortness of breath, wheezing. 20:05 Abdomen/GI: Positive for abdominal pain, constipation, Negative for vomiting, diarrhea, anorexia. 20:05 Back: Negative for pain at rest, pain with movement. 20:05 Neuro: Negative for altered mental status, dizziness, headache, numbness, weakness. 20:05 All other systems are negative. Exam: 20:10 Constitutional: The patient appears in no acute distress, alert, awake, non-toxic, well cp developed, well nourished, uncomfortable. 20:10 Head/Face: Normocephalic, atraumatic. cp 20:10 Eyes: Periorbital structures: appear normal, Conjunctiva: normal, no exudate, no injection, Sclera: no appreciated abnormality, Lids and lashes: appear normal, bilaterally. 20:10 ENT: External ear(s): are unremarkable, Ear canal(s): are normal, clear, TM's: dullness, bilaterally, Nose: is normal, Mouth: Lips: moist, Oral mucosa: moist, Posterior pharynx: Airway: no evidence of obstruction, patent, Tonsils: no enlargement, no exudate, swelling, is not appreciated, erythema, that is mild, exudate, is not appreciated. 20:10 Neck: ROM/movement: is normal, is supple, without pain, no range of motions limitations, no meningismus, no nuchal rigidity. 20:10 Chest/axilla: Inspection: normal. 20:10 Cardiovascular: Rate: normal, Rhythm: regular, JVD: is not appreciated. 20:10 Respiratory: the patient does not display signs of respiratory distress, Respirations: normal, no use of accessory muscles, no retractions, labored breathing, is not present, Breath sounds: are clear throughout, no decreased breath sounds, no stridor, no wheezing. 20:10 Abdomen/GI: Inspection: distension, that is moderate, Bowel sounds: active, all quadrants, Palpation: soft, in all quadrants, mild abdominal tenderness, in all quadrants. 20:10 Back: pain, is absent, ROM is normal. Vital Signs: 18:43 BP 133 / 94; Pulse 93; Resp 16 S; Temp 97.3(TE); Pulse Ox 100% on R/A; Weight 73.94 kg aa5 (R); Height 5 ft. 4 in. (R); 22:27 BP 128 / 84; Pulse 96; Resp 17; Pulse Ox 98% ; mb9 18:43 Body Mass Index 27.98 (73.94 kg, 162.56 cm) aa5 MDM: 18:37 Patient medically screened. cp 20:00 Differential diagnosis: bowel obstruction, diverticulitis, gastritis, non-specific abd cp pain, pancreatitis, Pyelonephritis, Ureterolithiasis, urinary tract infection. 23:07 Data reviewed: vital signs, nurses notes, lab test result(s), radiologic studies, CT cp scan, plain films. 23:07 Consideration of Admission/Observation Escalation of care including cp admission/observation considered. I considered the following discharge prescriptions or medication management in the emergency department Medications were administered in the Emergency Department. See MAR. Counseling: I had a detailed discussion with the patient and/or guardian regarding: the historical points, exam findings, and any diagnostic results supporting the discharge/admit diagnosis, lab results, radiology results, the need for outpatient follow up, for definitive care, a mother baby rn, to return to the emergency department if symptoms worsen or persist or if there are any questions or concerns that arise at home. Response to treatment: the patient's symptoms have mildly improved after treatment, and as a result, I will discharge patient. Special discussion: Based on the patient's Hx, exam, and Dx evaluation, there is no indication for emergent surgery or inpatient Tx. It is understood by the patient/guardian that if the Sx's persist or worsen they need to return immediately for re-evaluation. 02/20 19:39 Order name: CBC with Diff; Complete Time: 22:05 cp 02/20 22:06 Interpretation: Normal except: WBC 15.50; LYMA 6.1. cp 02/20 19:39 Order name: CMP; Complete Time: 22:05 cp 02/20 22:05 Interpretation: Normal except: ANION GAP 3.7; GFR 86; GLOB 3.8; A/G 0.9. cp 02/20 19:39 Order name: Lipase; Complete Time: 22:05 cp 02/20 19:39 Order name: Test, Urine; Complete Time: 22:05 cp 02/20 19:39 Order name: Urinalysis w/ reflexes; Complete Time: 22:05 cp 02/20 22:06 Interpretation: Normal except: UPH 7.5. cp 02/20 20:30 Order name: Strep; Complete Time: 22:05 cp 02/20 20:30 Order name: [place] Screen Profile; Complete Time: 22:05 cp 02/20 21:42 Order name: Throat Culture EDMS 02/20 19:39 Order name: CT Abd/Pelvis - IV Contrast Only; Complete Time: 22:05 cp 02/20 22:06 Interpretation: Report reviewed. cp 02/20 22:07 Order name: XRAY Chest (1 view); Complete Time: 22:57 cp 02/20 22:57 Interpretation: Report reviewed. 02/20 19:39 Order name: IV Saline Lock; Complete Time: 20:20 cp 02/20 19:39 Order name: Labs collected and sent; Complete Time: 20:20 cp Administered Medications: 20:05 Drug: NS 0.9% IV 1000 ml Route: IV; Rate: 1 bolus; Site: left antecubital; mb9 20:05 Drug: Famotidine IVP 20 mg Route: IVP; Site: right antecubital; mb9 20:54 Follow up: Response: No adverse reaction mb9 20:09 Drug: Ondansetron IVP 4 mg Route: IVP; Site: right antecubital; mb9 20:54 Follow up: Response: No adverse reaction mb9 22:27 Drug: NS 0.9% IV 1000 ml Route: IV; Rate: 1 bolus; Site: right antecubital; mb9 23:29 Drug: Lactulose PO 30 grams Volume: 45 ml; Route: PO; mb9 Disposition Summary: 02/20/23 23:08 Discharge Ordered Location: Home cp Problem: an ongoing problem cp Symptoms: are unchanged cp Condition: Stable cp Diagnosis - Acute pharyngitis, unspecified cp - Constipation, unspecified cp Followup: cp - With: Lambert Cabrera MD - When: 2 - 3 days - Reason: Recheck today's complaints Discharge Instructions: - Discharge Summary Sheet cp - Constipation, Adult cp - Gastroesophageal Reflux Disease, Adult cp - Sore Throat cp Forms: - Medication Reconciliation Form cp - Thank You Letter cp - Antibiotic Education cp - Prescription Opioid Use cp - Work release form mb9 Prescriptions: - Golytely 236-22.74-6.74 -5.86 gram Oral Recon Soln - take 240 milliliter by ORAL route once; 240 milliliter; Refills: 0, Product cp Selection Permitted - Protonix 40 mg Oral Tablet - take 1 tablet by ORAL route once daily; 30 tablet; Refills: 0, Product cp Selection Permitted Signatures: [facility] Lianet Benton RN RN aa5 Drake Edgar PA PA cp Breneman, Mary Beth, RN RN mb9 Corrections: (The following items were deleted from the chart) 22:06 22:05 Normal except: WBC 15.50. cp cp 02/21 23:04 23:03 Constitutional: Negative for cp cp
[2023-02-20] MEDS ORDERED: LACTULOSE 20 GM/30 ML UCUP ONE (23:30)
[2023-02-20 23:47] VITALS: TEMP 97.3
[2023-02-20 23:51] VITALS: BP 128/84; O2SAT 98
== END 2023-02-20 23:30 | disposition home or self-care (01) ==
LOC: ER 18:14
DX: K59.00 Constipation, unspecified (principal); J02.9 Acute pharyngitis, unspecified; Z88.0 Allergy status to penicillin; Z72.0 Tobacco use
CPT/HCPCS: 87070; 85025; 36415; 86308; 81025; 87081; 81003; 83690; 80053; 74177; 71045; 96375; 96374; 99284; Q9967; J2405; J7030 ×2

== ENCOUNTER 2023-03-10 12:32 | Emergency (ER) | payer OTHER ==
--- OUTSIDE RECORDS SUMMARY | 2023-03-10 12:36 | XMS REPORT | Continuity of Care Document ---
:1980 Author Organization [facility] t Address [address] [place] [address] Care Team Providers Name Role Phone ROGER MAYS Primary Care Physician Unavailable WAQAR ALBA APRN Attending Clinician Unavailable JUANITA OVERTON Attending Clinician Unavailable YULIANA KINCAID Attending Clinician Unavailable MICHELLE MACK Attending Clinician Unavailable MEERA MUSA Attending Clinician Unavailable Payers Payer Name Policy Type Policy Number Effective Date Expiration Date S jatin [employer] MP [facility] 9 [id number] 2023 00:00:00 [place] 4: [facility] Problems Condition Condition Condition Status Onset [...] Date Quantity Comments Source History of tobacco [facility] Health use Sex Assigned At [birth year] Female [facility] 00:00:00 00:00:00 Smoking Status Start Date Stop Date Source Smokes tobacco daily (finding) 2021-07-25 20:24:00 [facility] Medications Ordered Filled Start Stop Current Ordering [...] Times A S one [facility] 10/325) 1 Tab TAB Cyclobenzap No 10mg [...] Times A S one [facility] [address]) 1 Tab TAB Cyclobenzap No 10mg [...] Times A S one [facility] [address]) 1 Tab TAB Cyclobenzap No 10mg [...] :00 Miscellaneo 2014- No 0 Xx For [facility] 11-15 Order Sets S Information 00:00 Health (No Home :00 Meds) [facility] Miscellaneo 2014- No 0 Xx For [facility] 11-15 Order Sets S Information 00:00 Health (No Home :00 Meds) [facility] Miscellaneo 2014- No 0 Xx For [facility] 11-15 Order Sets S Information 00:00 Health (No Home :00 Meds) [facility] Vital Signs Vital Name Observation Time Observation [...] Health BP Diastolic 2019-07-21 12:00:00 52 mm[Hg] [facility] Heart Rate 2019-07-21 11:41:00 84 /min [facility] Respiratory rate 2019-07-21 11:41:00 18 /min [facility] BP Systolic 2019-07-21 11:41:00 95 mm[Hg] [facility] BP Diastolic 2019-07-21 11:41:00 52 mm[Hg] [facility] Weight 2019-07-21 10:06:00 165 [lb_av] [facility] BMI (Body Mass Index) 2019-07-21 10:06:00 28.3 kg/m2 [facility] Procedures Procedure Date / Time Performed Performing Clinician Sour e X-ray of foot, three or 2021-07-25 00:00:00 [facility] [employer]-nario more views Encounters Start End Encounter Admission Attending Care Care Encounter Source Date/Time Date/Time Type Type Clinicians Facility Department ID 2021-01-08 Inpatient TERRIE BROOKE [id number] [facility] 09:00:[address] [place] [address] 2023-03-20 2023-03-20 Outpatient NAOMI OVERTON [id number] Naomi 15:30:00 15:30:00 JUANITA allred 2022-09-22 2022-09-22 Emergency ER TERRIE KINCAID [id number] [facility] 17:29:00 22:00:00 YULIANA [id number] [facility] 2021-07-25 2021-07-25 Departed ER TERRIE MACK [id number] [facility] 18:43:00 20:30:00 Emergency MICHELLE [address] [facility] 2021-01-08 2021-01-08 Departed [facility] [id number] [facility] 15:00:00 16:42:00 Emergency AT [facility] [address] 2020-11-04 2020-11-04 Departed TERRIE MUAS [id number] [facility] 03:37:00 05:22:00 Emergency ESTES [address] [facility] 2019-07-21 2019-07-21 Departed [facility] [id number] [facility] 10:49:00 11:48:00 Emergency AT [facility] [address] [facility] Results Test Description Test Time Test Comments Results Result Comments Source Urine color determination 2021-01-08 14:41:00 Test Item Value Reference Range Interpretation Comme nts Urine Color (test code = 5778-6) YELLOW STR/YELLOW [facility] appearance [id number] 14:41:00 Test Item Value Reference Range Interpretation Comments Urine Appearance (test code = 5767-9) CLEAR CLEAR [facility] pH measurement by test [id number] 14:41:00 Test Item Value Reference Range Interpretation Comments Urine pH (test code = 5803-2) 7.0 5.0-8.0 [facility] gravity of Urine by Test [id number] 14:41:00 Test Item Value Reference Range Interpretation Comments Urine Specific [place] (test code = 1.010 1.005-1.030 5811-5) [facility] protein measurement by automated test strip (mass/volume) 2021-01-08 14:41:00 Test Item Value Reference Range Interpretation Comments Urine Protein (test code = 38573-3) NEGATIVE NEGATIVE [facility] glucose measurement by automated test strip (mass/volume) 2021-01-08 14:41:00 Test Item Value Reference Range Interpretation Comments Urine Glucose (UA) (test code = NEGATIVE NEGATIVE 56695-6) [facility] ketones measurement by test strip (mass/volume)2021-01-08 14:41:00 Test Item Value Reference Range Interpretation Comments Urine Ketones (test code = 5797-6) NEGATIVE NEGATIVE [facility] erythrocytes count by automated test strip (number/volume) 2021-01-08 14:41:00 Test Item Value Reference Range Interpretation Comments Urine Occult Blood (test code = NEGATIVE NEGATIVE 56967-9) [facility] nitrite detection by automated test [id number] 14:41:00 Test Item Value Reference Range Interpretation Comments Urine Nitrite (test code = 41001-7) NEGATIVE NEGATIVE [facility] total bilirubin detection by test [id number] 14:41:00 Test Item Value Reference Range Interpretation Comments Urine Bilirubin (test code = 5770-3) NEGATIVE NEGATIVE [facility] urobilinogen measurement by automated test strip (mass/volume)2021-01-08 14:41:00 Test Item Value Reference Range Interpretation Comments Urine Urobilinogen (test code = 0.2 0.2-1.0 84464-1) [facility] leukocyte esterase detection by automated test strip 2021-01-08 14:41:00 Test Item Value Reference Range Interpretation Comments Urine Leukocyte Esterase (test code NEGATIVE NEGATIVE = 52926-7) [facility] comment 14:41:00 Test Item Value Reference Range Interpretation Comments Urine Culture Indicated (test code = YES 8265-1) [facility] comment 14:41:00 Test Item Value Reference Range Interpretation Comments Urine Culture Reflexed NO,C&S NOT INDICATED (test code = 8266-9) [facility]inalysis specimen collection [id number] 14:41:00 Test Item Value Reference Range Interpretation Comments Urine Collection Type (test code = VOIDED 90641-9) [facility] beta-human chorionic gonadotropin (BhCG) detection 2021-01-08 14:41:00 Test Item Value Reference Range Interpretation Comments Urine Test (test code = NEGATIVE NEGATIVE 2-1) [facility] color [id number] 03:50:00 Test Item Value Reference Range Interpretation Comments Urine Color (test code = 5778-6) YELLOW STR/YELLOW [facility] urine appearance [id number] 03:50:00 Test Item Value Reference Range Interpretation Comments Urine Appearance (test code = 5767-9) CLEAR CLEAR [facility] pH measurement by test [id number] 03:50:00 Test Item Value Reference Range Interpretation Comments Urine pH (test code = 5803-2) 8.0 5.0-8.0 [facility] gravity of Urine by Test [id number] 03:50:00 Test Item Value Reference Range Interpretation Comments Urine Specific [place] (test code = 1.010 1.005-1.030 5811-5) [facility] protein measurement by automated test strip (mass/volume) 2020-11-04 03:50:00 Test Item Value Reference Range Interpretation Comments Urine Protein (test code = 17398-7) NEGATIVE NEGATIVE [facility] glucose measurement by automated test strip (mass/volume) 2020-11-04 03:50:00 Test Item Value Reference Range Interpretation Comments Urine Glucose (UA) (test code = NEGATIVE NEGATIVE 67426-2) [facility] ketones measurement by test strip (mass/volume)2020-11-04 03:50:00 Test Item Value Reference Range Interpretation Comments Urine Ketones (test code = 5797-6) NEGATIVE NEGATIVE [facility] erythrocytes count by automated test strip (number/volume) 2020-11-04 03:50:00 Test Item Value Reference Range Interpretation Comments Urine Occult Blood (test code = NEGATIVE NEGATIVE 72244-8) [facility] nit[facility] detection by automated test [id number] 03:50:00 Test Item Value Reference Range Interpretation Comments Urine Nitrite (test code = 45411-2) NEGATIVE NEGATIVE [facility] total bilirubin detection by test [id number] 03:50:00 Test Item Value Reference Range Interpretation Comments Urine Bilirubin (test code = 5770-3) NEGATIVE NEGATIVE [facility] urobilinogen measurement by automated test strip (mass/volume)2020-11-04 03:50:00 Test Item Value Reference Range Interpretation Comments Urine Urobilinogen (test code = 0.2 0.2-1.0 82439-0) [facility] esterase detection by automated test strip 2020-11-04 03:50:00 Test Item Value Reference Range Interpretation Comments Urine Leukocyte Esterase (test code NEGATIVE NEGATIVE = 90612-7) [facility] 03:50:00 Test Item Value Reference Range Interpretation Comments Urine Culture Indicated (test code = YES 8265-1) [facility] 03:50:00 Test Item Value Reference Range Interpretation Comments Urine Culture Reflexed NO,C&S NOT INDICATED (test code = 8266-9) [facility] specimen collection [id number] 03:50:00 Test Item Value Reference Range Interpretation Comments Urine Collection Type (test code = VOIDED 22794-4) [facility] beta-human chorionic gonadotropin (BhCG) detection 2020-11-04 03:50:00 Test Item Value Reference Range Interpretation Comments Urine Test (test code = NEGATIVE NEGATIVE 2-1) [facility]
[2023-03-10] MEDS ORDERED: KETOROLAC 30 MG/ML INJ ONE (13:50)
--- NOTE | 2023-03-10 13:52 | ER ---
Nurse's Notes [facility] Name: Lilliam Leahy Age: 42 yrs Sex: Female : 1980 Arrival Date: 03/10/2023 Time: 12:32 Bed Treatment Private MD: Diagnosis: Dental caries, unspecified Presentation: 03/10 13:05 Chief complaint: Patient states: Pain to R lower molar x 1 week, worse last night, ph states that she has a broken tooth, denies fever. Coronavirus screen: Vaccine status: Patient reports being unvaccinated. Ebola Screen: No symptoms or risks identified at this time. Initial Sepsis Screen: Does the patient meet any 2 criteria? No. Patient's initial sepsis screen is negative. Does the patient have a suspected source of infection? No. Patient's initial sepsis screen is negative. Risk Assessment: Do you want to hurt yourself or someone else? Patient reports no desire to harm self or others. Onset of symptoms was March 10, 2023. 13:05 Method Of Arrival: Ambulatory ph 13:05 Acuity: SOFY 5 ph Historical: - Allergies: 13:06 PENICILLINS; ph - PMHx: 13:06 Fibromyalgia; hiatal hernia; neuropathy; PCOS; Pre-Diabetes; scoliosis; ph - PSHx: 13:06 back sx; Lump removed from r breast; Tonsillectomy; Total abdominal hysterectomy; ph - Immunization history:: Adult Immunizations unknown. - Social history:: Smoking status: Patient reports the use of cigarette tobacco products, smokes one pack cigarettes per day. Screenin:45 [facility] ED Fall Risk Assessment (Adult) History of falling in the last 3 months, ko1 including since admission No falls in past 3 months (0 pts) Confusion or Disorientation No (0 pts) Intoxicated or Sedated No (0 pts) Impaired Gait No (0 pts) Mobility Assist Device Used No (0 pt) Altered Elimination No (0 pt) Score/Fall Risk Level 0 - 2 = Low Risk Oriented to surroundings, Maintained a safe environment, Educated pt \T\ family on fall prevention, incl call for assistance when getting out of bed, Assessed \T\ reinforced patient's understanding of fall precautions, Provided non-skid footwear, Hourly rounding (assess needs \T\ fall precautionary measures) done, Used ambulatory aids as needed (educated on \T\ assisted with), Used gait belt as appropriate. Abuse screen: Denies threats or abuse. Denies injuries from another. Nutritional screening: No deficits noted. Tuberculosis screening: No symptoms or risk factors identified. Assessment: 13:45 General: Appears in no apparent distress. uncomfortable, Behavior is calm, cooperative, ko1 appropriate for age. Pain: Complains of pain in lower right first molar. Neuro: No deficits noted. Cardiovascular: No deficits noted. Respiratory: No deficits noted. GI: No deficits noted. : No deficits noted. EENT: Reports pain in lower right first molar. Derm: No deficits noted. Musculoskeletal: No deficits noted. Vital Signs: 13:05 BP 122 / 85; Pulse 89; Resp 18; Temp 97.7; Pulse Ox 98% on R/A; Weight 72.57 kg; Height ph 5 ft. 4 in. ; 13:05 Body Mass Index 27.46 (72.57 kg, 162.56 cm) ph ED Course: 12:33 Patient arrived in ED. rg4 12:55 Saritha Stiles FNP-C is [facility]. kb 12:55 Deng Bragg MD is Attending Physician. kb 13:06 Triage completed. ph 13:07 Arm band placed on Patient placed in waiting room, Patient notified of wait time. ph 13:42 Raisa Diaz, VITOR is Primary Nurse. ko1 13:45 Patient has correct armband on for positive identification. Bed in low position. Call ko1 light in reach. Pulse ox on. NIBP on. Door closed. Noise minimized. 13:45 No provider procedures requiring assistance completed. Patient did not have IV access ko1 during this emergency room visit. Administered Medications: 13:48 Drug: Ketorolac IM 30 mg Route: IM; Site: right gluteus; ko1 Medication: 13:45 VIS not applicable for this client. ko1 Outcome: 13:52 Discharge ordered by . kb 14:08 Discharged to home ambulatory. ko1 14:08 Condition: stable 14:08 Discharge instructions given to patient, Instructed on discharge instructions, follow up and referral plans. medication usage, Demonstrated understanding of instructions, follow-up care, medications, Prescriptions given X 2. 14:09 Patient left the ED. ko1 Signatures: Saritha Stiles FNP-C FNP-Ckb Hall, Patricia, RN RN ph Sofy Orr rg4 Raisa Diaz, RN RN ko1
--- NOTE | 2023-03-10 13:52 | EDPHYS ---
Physician Documentation [facility] Name: Lilliam Leahy Age: 42 yrs Sex: Female : 1980 Arrival Date: 03/10/2023 Time: 12:32 Bed Treatment Private MD: ED Physician Deng Bragg HPI: 03/10 13:58 This 42 yrs old Female presents to ER via Ambulatory with complaints of Toothache. kb 13:58 The patient presents with pain, redness, swelling. The problem is located in the lower kb right first molar. 14:22 Onset: The symptoms/episode began/occurred this morning, at 04:00. Duration: The kb symptoms are continuous. Modifying factors: The symptoms are alleviated by nothing, the symptoms are aggravated by nothing. Associated signs and symptoms: Pertinent positives: pain, redness in area, Pertinent negatives: fever. Severity of symptoms: At their worst the symptoms were moderate, in the emergency department the symptoms are unchanged. The patient has experienced similar episodes in the past. The patient has not recently seen a physician. Pt reports she woke up with a toothache at 0400 this morning and it has been bothering her all day. States she has had this multiple times in the past and normally gets antibiotics. States she got steroids the last few times and that helped a lot too. Reports she had gone to the dentist a while back for this and was told she needed the tooth pulled but she doesn't have the money to do it. Historical: - Allergies: 13:06 PENICILLINS; ph - PMHx: 13:06 Fibromyalgia; hiatal hernia; neuropathy; PCOS; Pre-Diabetes; scoliosis; ph - PSHx: 13:06 back sx; Lump removed from r breast; Tonsillectomy; Total abdominal hysterectomy; ph - Immunization history:: Adult Immunizations unknown. - Social history:: Smoking status: Patient reports the use of cigarette tobacco products, smokes one pack cigarettes per day. ROS: 13:57 Constitutional: Negative for fever, chills, and weight loss. kb 13:57 ENT: Positive for dental pain, Teeth pain 13:57 All other systems are negative. Exam: 14:29 Constitutional: This is a well developed, well nourished patient who is awake, alert, kb and in no acute distress. Head/Face: Normocephalic, atraumatic. Cardiovascular: Regular rate and rhythm with a normal S1 and S2. No gallops, murmurs, or rubs. No pulse deficits. Respiratory: Respirations even and unlabored. No increased work of breathing. Talking in full sentences Abdomen/GI: Soft, non-tender. No distention Skin: Warm, dry with normal turgor. Normal color. MS/ Extremity: Pulses equal, no cyanosis. Neurovascular intact. Full, normal range of motion. Neuro: Awake and alert, GCS 15, oriented to person, place, time, and situation. Moves all extremities. Normal gait. 14:29 ENT: Dental exam: dental caries, pain, that is moderate, specifically in the lower right first molar. Vital Signs: 13:05 BP 122 / 85; Pulse 89; Resp 18; Temp 97.7; Pulse Ox 98% on R/A; Weight 72.57 kg; Height ph 5 ft. 4 in. ; 13:05 Body Mass Index 27.46 (72.57 kg, 162.56 cm) ph MDM: 12:55 Patient medically screened. kb 13:57 Differential diagnosis: dental caries, gingivitis, dental abscess. Data reviewed: vital kb signs, nurses notes. Counseling: I had a detailed discussion with the patient and/or guardian regarding: the historical points, exam findings, and any diagnostic results supporting the discharge/admit diagnosis, the need for outpatient follow up, a dentist, to return to the emergency department if symptoms worsen or persist or if there are any questions or concerns that arise at home. Administered Medications: 13:48 Drug: Ketorolac IM 30 mg Route: IM; Site: right gluteus; ko1 Disposition Summary: 03/10/23 13:52 Discharge Ordered Location: Home kb Condition: Stable kb Diagnosis - Dental caries, unspecified kb Followup: kb - With: Emergency Department - When: As needed - Reason: Worsening of condition Followup: kb - With: Private Physician - When: 2 - 3 days - Reason: Recheck today's complaints, Continuance of care, Re-evaluation by your physician Discharge Instructions: - Discharge Summary Sheet kb - Dental Caries, Adult kb - Dental Pain, [id number] kb Forms: - Medication Reconciliation Form kb - Thank You Letter kb - Antibiotic Education kb - Prescription Opioid Use kb - Work release form ko1 Prescriptions: - Clindamycin HCl 150 mg Oral Capsule - take 1 capsule by ORAL route every 6 hours for 10 days; 40 capsule; Refills: 0, kb Product Selection Permitted - Medrol (James) 4 mg Oral Tablets, Dose Pack - take 1 tablet by ORAL route as directed - follow package instructions; 1 kb packet; Refills: 0, Product Selection Permitted Signatures: Saritha Stiles, Sarah Knutson RN RN Raisa Jonas RN RN ko1
[2023-03-10 14:32] VITALS: BP 122/85; TEMP 97.7; O2SAT 98
== END 2023-03-10 14:09 | disposition home or self-care (01) ==
LOC: ER 12:32
DX: K02.9 Dental caries, unspecified (principal); F17.210 Nicotine dependence, cigarettes, uncomplicated; Z88.0 Allergy status to penicillin

== ENCOUNTER 2023-04-04 12:27 | Emergency (ER) | payer OTHER ==
--- OUTSIDE RECORDS SUMMARY | 2023-04-04 12:32 | XMS REPORT | Continuity of Care Document ---
:[address] [facility] t Address [address] [facility] [address] [place] [address] Care Team Providers Name Role Phone ROGER MAYS Primary Care Physician Unavailable WAQAR ALBA APRN Attending Clinician Unavailable ANTONIETTA BENAVIDEZ Attending Clinician Unavailable JUANITA OVERTON Attending Clinician Unavailable MD KINA Attending Clinician Unavailable YULIANA KINCAID Attending Clinician Unavailable MICHELLE MACK Attending Clinician Unavailable MEERA MUSA Attending Clinician Unavailable Payers Payer Name Policy Type Policy Number Effective Date Expiration Date [facility] 9 [id number] 2023 00:00:00 [facility] Condition Condition Condition Status Onset Resolution Last Treating Co mments Source Name Details Category Date Date Treatment Clinician Date Cervical Cervical Disease Active Kelse y radiculopa radiculopa 03-20 ybold thy thy 00:00: - 00 Externa l Chronic Chronic Disease Active Tram back pain back pain 03-20 Seyb old 00:00: - 00 Externa l Chronic Chronic Disease Active Tram constipati constipati 03-20 Se ybold on on 00:00: - 00 Externa l 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 00 Externa purpura purpura l Fibromyalg Fibromyalg Disease Active K elsey ia ia 03-20 Seybold 00:00: - 00 Externa l Hiatal Hiatal Disease Active Tram hernia hernia 03-20 Seybold with GERD with GERD 00:00: - 00 Externa l Scoliosis Scoliosis Disease Active Tyrone singhy 03-20 Seybold 00:00: - 00 Externa l Surgical Surgical Disease Active Tyronese y menopause menopause 03-20 Seyb old on hormone on hormone 00:00: - replacemen replacemen 00 Ex terna t therapy t therapy l History of History of Disease Active Giles morales PCOS PCOS 03-20 Seybold 00:00: - 00 Externa l Herpes Herpes Disease Active Tram genitalis genitalis 03-20 Seyb old in women in women 00:00: - 00 Externa l Bipolar 1 Bipolar 1 Disease Active Tyrone foster disorder disorder 03-20 Seybol d 00:00: - 00 Externa l Vaginitis Problem Inactiv CYRIL TU e S [...] Source Name Type Date Date Clinician Penicill Propensi Active Anaphylaxis Giles morales ins ty to 5 Seybold adverse 00:00: - reaction 00 Externa s l Penicill Allergy Active Unknown 2020-10 TREVER U in to 0-06 S substanc 00:00: Health e 00 Penicill Allergy Active Unknown TREVER U in to 3-22 S substanc 00:00: Health e 00 Penicill Allergy Active Unknown 2018-10 TREVER U in to 0-02 S substanc 00:00: Health e 00 Social History Social Habit Start Date Stop Date Quantity Comments Source Gender identity 2023-02-18 Identifies as Tram Tiwari 10:19:51 female gender - External (finding) Sexual orientation Tram Tiwari - External History of tobacco Cigarette Smoker Tram Seybold use - External Education 2023-03-20 2023-03-20 17 Tram Singhybold 00:00:00 00:00:00 - External Alcohol Comment 2023-03-20 2023-03-20 socially, rarely Tyrone foster Seybold 00:00:00 00:00:00 - External Alcohol intake 2023-03-20 2023-03-20 Current drinker Danial khan Seybmukund 00:00:00 00:00:00 of alcohol - External (finding) History of Social 2023-03-19 2023-03-19 Tram Singhybold function 00:00:00 00:00:00 - External Cigarettes smoked 2023-03-19 2023-03-19 Tram Singhybmukund current (pack per 00:00:00 00:00:00 - Exter nal day) - Reported Cigarette 2023-03-19 2023-03-19 Tram Singhybmukund pack-years 00:00:00 00:00:00 - External Tobacco use and 2023-03-19 2023-03-19 Smokeless tobacco Esvin reed Seybmukund exposure 00:00:00 00:00:00 non-user - External Sex [birth year] At [birth year] Tram Singh ybmukund 00:00:00 00:00:00 - External Smoking Status Start Date Stop Date Source Smokes tobacco daily 2023-03-19 00:00:00 Tram Singhybold - External Medications Ordered Filled Start Stop Current Ordering Indication Dosage Frequency Signature Comments Components Source Medication Medication Date Date Medication? Clinician (SIG) Name Name Atorvastati 2022- No 40mg Take 1 Tyrone sey n Calcium 03-20 tablet (40 Sey bold 40 MG oral 16:06: 00:00 mg total) - Tablet 59 :00 by mouth Externa daily l Valacyclovi 2022- No 1000mg Take 1 K elsey r HCl 1 g 03-20 tablet Seybold oral Tablet 16:06: 00:00 (1,000 mg - 59 :00 total) by Externa mouth 2 l times daily Cascara Yes Take by Tram Ayala-Sen 03-20 mouth Seybold na-Radha Lax 15:35: - (BIO 19 Externa 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 OR) Magnesium Yes Take by Kelse y Citrate 100 6-01 mouth Seybold MG oral 15:35: - Capsule 04 Externa l Bisacodyl Yes 5mg Take 1 Tram (DULCOLAX) 6-01 tablet (5 Seyb old 5 MG oral 15:34: mg total) - Tablet 52 by mouth Externa Delayed once l Response Gabapentin Yes [id number] 600 mg Tram 300 MG oral 6- every and Sey bold Capsule 00:00: 300 mg - 00 every noon Externa l Cyclobenzap Yes [id number] 10mg QD Take 1 Tram rine HCl 10 6- tablet (10 Se ybold MG oral 00:00: mg total) - Tablet 00 by mouth Externa nightly as l needed for muscle spasms Fluoxetine Yes [id number] 20mg Take 1 Tram HCl 20 MG 6-01 capsule Seybold oral 00:00: (20 mg - Capsule 00 total) by Externa mouth l daily Pantoprazol Yes [id number] 40mg Take 1 Tram e Sodium 40 6- tablet (40 Se ybold MG oral 00:00: mg total) - Tablet 00 by mouth Externa Delayed daily l Response Atorvastati Yes [id number] 40mg Take 1 Tram n Calcium 6-01 tablet (40 Seyb old 40 MG oral 00:00: mg total) - Tablet 00 by mouth Externa nightly l Valacyclovi Yes [id number] 1000mg Take 1 Tram r HCl 1 g 6-01 tablet Seybold oral Tablet 00:00: (1,000 mg - 00 total) by Externa mouth 2 l times daily Acetaminoph Yes [id number] 1{tbl} QD Take 1 Tram en-Codeine 6-01 tablet by Seyb old 300-30 MG 00:00: mouth - oral Tablet 00 daily as Exte rna needed for l pain Gabapentin 2022-0 2022- No 300mg Take 1 Tyrone sey 300 MG oral 5-12 06-01 capsule Seyb old Capsule 00:00: 00:00 (300 mg - 00 :00 total) by Externa mouth 3 l times daily Pantoprazol 2022-0 2023- No 40mg Take 1 Tyrone sey e Sodium 40 5-05 03-20 tablet (40 S eybold MG oral 00:00: 00:00 mg total) - Tablet 00 :00 by mouth Externa Delayed daily l Response Progesteron Yes 200mg Take 1 Tyrone sey e 200 MG 4-17 capsule Seybold oral 00:00: (200 mg - Capsule 00 total) by Externa mouth l daily Estradiol 2 Yes 2mg Take 1 Alee ey MG oral 4-17 tablet (2 Seybold Tablet 00:00: mg total) - 00 by mouth Externa daily l Cyclobenzap 2022- No 10mg Take 1 Tyrone sey rine HCl 10 -17 03-20 tablet (10 S eybold MG oral 00:00: 00:00 mg total) - Tablet 00 :00 by mouth 3 Externa times l daily Doxycycline No 100mg Twice A CH RISTU [...] 500mg Twice A C HRISTU le (Flagyl) 3-22 04-02 Day S 500 Mg TAB 14:59: 00:00 Health 00 :00 Methylpredn 0 No 1 As TREVER U isolone 1-16 Directed S (Medrol 04:01: Health Pack) Tab/Dspk TAB Methylpredn 0 No 1 As TREVER U isolone 1-16 Directed S (Medrol 04:01: Health Pack) 21 00 Tab/Dspk TAB Cefuroxime No 500mg Twice A CHR ISTU Axetil 1-16 Day S (Ceftin) 04:01: Health 500 Mg TAB 00 Meloxicam No 15mg Daily as CHRI TOLU (Mobic) 15 1-16 needed for S Mg TAB 04:01: Pain Health 00 Methylpredn 0 No 1 As TREVER U isolone 16 Directed S (Medrol 04:01: Health Dose-Pack) 00 21 Tab/Dspk TAB Meloxicam 2020- No 15mg Daily as CHR ISTU (Mobic) 15 16 02-16 needed for S Mg TAB 04:01: 00:00 Pain Health 00 :00 Meloxicam 2020- No 15mg Daily as CHR ISTU (Mobic) 15 16 -16 needed for S Mg TAB 04:01: 00:00 [...] 0-02 Directed S 11:23: Health 00 Gentamicin 2018-10 No 1 Three TREVER U Sulfate 0-02 Times A S 11:23: Day Health 00 Meclizine 2018-10 No 25mg Three CHRISTU Hcl 0-02 Times A S 11:23: Day as Health 00 needed for Dizziness Gentamicin 2018-10 No 1 Three TREVER U Sulfate 0-02 Times A S (Garamycin 11:23: Day Health Oph Oint) 00 3.5 Gm OINT..GM. Meclizine 2018-10 No 25mg Three CHRISTU Hcl 0-02 Times A S (Antivert) 11:23: Day as Healt h 25 Mg TAB 00 needed for Dizziness Azithromyci 2018-10- No 1 As CYRIL LEMOS n 0-02 - Directed S (Zithromax 11:23: 00:00 [facility]) 6 00 :00 Tab/Pkg TAB Azithromyci 2018-10- No 1 As CYRIL LEMOS n 0-02 08-21 Directed S (Zithromax 11:23: 00:00 Health [facility]) 6 00 :00 Tab/Pkg TAB Azithromyci 2018-10- No 1 As CYRIL LEMOS n 0-02 08-21 Directed S (Zithromax 11:23: 00:00 [facility]) 6 00 :00 Tab/Pkg TAB Acetaminoph 2019- No 1 Every 6 CH RISTU en/Codeine 5-26 10-02 Hours S Phosphate 13:50: 00:00 Health (Tylenol 00 :00 #3) 1 Tab TAB Acetaminoph 2018- No 1 Every 6 CH RISTU en/Codeine 5-26 10-02 Hours S Phosphate 13:50: 00:00 Health (Tylenol 00 :00 #3) 1 Tab TAB Acetaminoph 2018- No 1 Every 6 CH RISTU en/Codeine 5-26 10-02 Hours S Phosphate 13:50: 00:00 Health (Tylenol 00 :00 #3) 1 Tab TAB Acetaminoph 2013-10- No 1 Every 6 CH RISTU en/Codeine 11-03-19 Hours as S Phosphate 15:47: 00:00 needed for H ealth (Tylenol 00 :00 Moderate #3) 1 Tab To Severe TAB Pain(4-10) Clindamycin 2013-10- No 300mg Four Times CHRISTU Hcl 11-03-19 Daily S (Cleocin) 15:47: 00:00 Health 300 Mg CAP 00 :00 Acetaminoph 2013-10- No 1 Every 6 CH RISTU en/Codeine 11-03-19 Hours as S Phosphate 15:47: 00:00 needed for H ealth (Tylenol 00 :00 Moderate #3) 1 Tab To Severe TAB Pain(4-10) Clindamycin 2013-10- No 300mg Four Times CHRISTU Hcl 11-03-19 Daily S (Cleocin) 15:47: 00:00 Health 300 Mg CAP 00 :00 Acetaminoph 2013-10- No 1 Every 6 CH RISTU en/Codeine 11-0319 Hours as S Phosphate 15:47: 00:00 needed for H ealth (Tylenol 00 :00 Moderate #3) 1 Tab To Severe TAB Pain(4-10) Clindamycin 2013-10- No 300mg Four Times [facility]STU Hcl 11-03 Daily S (Cleocin) 15:47: 00:00 Health 300 Mg CAP 00 :00 Tramadol 2013-10- No 50mg Every 6 CYRIL TU Hcl 10-22-19 Hours as S (Ultram) 50 14:00: 00:00 needed for Health Mg TAB 00 :00 Pain Tramadol 2013-10- No 50mg Every 6 CYRIL TU Hcl -12 20-19 Hours as S (Ultram) 50 14:00: 00:00 needed for Health Mg TAB 00 :00 Pain Tramadol 2013-10- No 50mg Every 6 CYRIL TU Hcl 10-22-19 Hours as S (Ultram) 50 14:00: 00:00 needed for Health Mg TAB 00 :00 Pain Nitrofurant 2013-10- No 100mg Twice A C HRISTU oin 10-2215 Day S Macrocrysta 14:00: 00:00 Healt h ls 00 :00 (Macrobid) 100 Mg CAP Nitrofurant 2013-10- No 100mg Twice A C HRISTU oin 10-2215 Day S Macrocrysta 14:00: 00:00 Healt h ls 00 :00 (Macrobid) 100 Mg CAP Nitrofurant 2013-10- No 100mg Twice A C HRISTU oin 10-2215 Day S Macrocrysta 14:00: 00:00 Healt h ls 00 :00 (Macrobid) 100 Mg CAP Acetaminoph No 1 Three CHRISTU en/Hydrocod Times A S one [facility] 10/325) 1 Tab TAB Cyclobenzap No 10mg [...] Times A S one [facility] ) 1 Tab TAB Cyclobenzap No 10mg Bedtime [...] S Health Gabapentin No 600mg Twice A Day S Health Lorazepam No 1mg Bedtime CHRISTU S Health Venlafaxine No 75mg Daily [facility] Hcl S Health Acetaminoph No 1 Three CHRISTU en/Hydrocod Times A S one [facility] ) 1 Tab TAB Cyclobenzap No 10mg Bedtime rine Hcl S (Flexeril) Health 10 Mg TAB Estradiol No 1mg Bedtime CHRISTU (Estrace) 1 S Mg TAB Health Gabapentin No 600mg Twice A (Neurontin) Day S 600 Mg TAB Health Lorazepam No 1mg Bedtime CHRISTU (Ativan) 1 S Mg TAB Health Venlafaxine No 75mg Daily CHRISTU Hcl S (Effexor Health Xr) 75 Mg CAPCR Esomeprazol 2019- No 40mg Bedtime CHRI TOLU e Magnesium 10- S (Nexium) 40 00:00 Health Mg CAPCR [...] 2015- No 300mg Three TREVER U (Neurontin) 03-19 Times A S 300 Mg CAP 00:00 Day Health :00 Lorazepam 2015- No .5mg Twice A TREVER U (Ativan) 0319 Day S 0.5 Mg TAB 00:00 Health :00 Omeprazole 2015- No 40mg Bedtime CYRIL CANELO (Prilosec) 03 S 40 Mg CPDR 00:00 Health :00 Cyclobenzap 2015- No 10mg Twice A CHRI TOLU rine Hcl 03-19 Day S (Flexeril) 00:00 Health 10 Mg TAB :00 Gabapentin 2015- No 300mg Three TREVER U (Neurontin) 03-19 Times A S 300 Mg CAP 00:00 Day Health :00 Lorazepam 2015- No .5mg Twice A TREVER U (Ativan) 03-19 Day S 0.5 Mg TAB 00:00 Health :00 Omeprazole 2015- No 40mg Bedtime CYRIL TU (Prilosec) 01-05 S 40 Mg CPDR 00:00 Health :00 Cyclobenzap 2015- No 10mg Twice A CHRI TOLU rine Hcl 03-19 Day S (Flexeril) 00:00 Health 10 Mg TAB :00 Gabapentin 2015- No 300mg Three TREVER U (Neurontin) 03-19 Times A S 300 Mg CAP 00:00 Day Health :00 Lorazepam 2015- No .5mg Twice A TREVER U (Ativan) 03-19 Day S 0.5 Mg TAB 00:00 Health :00 Omeprazole 2015- No 40mg Bedtime CYRIL TU (Prilosec) 03-19 S 40 Mg CPDR 00:00 Health :00 Miscellaneo 2014- No 0 Xx For [facility] 11-15 Order Sets S Information 00:00 Health (No Home :00 Meds) [facility] Miscellaneo 2013- No 0 Xx For [facility] 15 Order Sets S Information 00:00 Health (No Home :00 Meds) [facility] Miscellaneo 2013- No 0 Xx For [facility] 15 Order Sets S Information 00:00 Health (No Home :00 Meds) [facility] Vital Signs Vital Name Observation Time Observation Value Comments Source Systolic blood 2023-03-20 20:29:00 122 mm[Hg] Tram Seybold - pressure External Diastolic blood 2023-03-20 20:29:00 73 mm[Hg] Danial khan Seybold - pressure External Heart rate 2023-03-20 20:29:00 93 /min Tramcristian chengbold - External Body temperature 2023-03-20 20:29:00 36.61 Kelli Alee cheng Seybold - External Respiratory rate 2023-03-20 20:29:00 19 /min Alee cheng Seybold - External Body height 2023-03-20 20:29:00 162.6 cm Tramcristian chengbold - External Body weight 2023-03-20 20:29:00 75.297 kg Tram Ronny eybold - External BMI 2023-03-20 20:29:00 28.49 kg/m2 Tram chengbold - External Oxygen saturation in 2023-03-20 20:29:00 99 /min Tram Tiwari - Arterial blood by External Pulse oximetry BP Diastolic 2021-07-25 18:08:00 86 mm[Hg] [facility] Health BP Diastolic 2019-07-21 12:00:00 52 mm[Hg] [facility] Heart Rate 2019-07-21 11:41:00 84 /min [facility] Respiratory rate 2019-07-21 11:41:00 18 /min [facility] BP Systolic 2019-07-21 11:41:00 95 mm[Hg] [facility] BP Diastolic 2019-07-21 11:41:00 52 mm[Hg] [facility] Weight 2019-07-21 10:06:00 165 [lb_av] [facility] BMI (Body Mass Index) 2019-07-21 10:06:00 28.3 kg/m2 [facility] Nexavis Procedures Procedure Date / Time Performed Performing Clinician Sourc e X-ray of foot, three or 2021-07-25 00:00:00 [facility] more views Encounters Start End Encounter Admission Attending Care Care Encounter Source Date/Time Date/Time Type Type Clinicians Facility Department ID 2021-01-08 Inpatient ENRIQUE ALBA TERRIE FALCON [id number] CHRIST[facility] 09:00:[address] 2023-07-04 2023-07-04 Outpatient PRAMODANTONIETTA Diaz TRAM SALGADO [id number] Tram 11:00:00 11:00:00 Seybol d 2023-04-17 2023-04-17 Outpatient TRAM OVERTON [id number] Tram 15:00:00 15:00:00 JUANITA Seybol d 2023-03-31 2023-03-31 Outpatient ELIANA SALGADO [id number] Tram 00:00:00 00:00:00 MD STEPHANE Seybol d 2023-03-30 2023-03-30 Outpatient TRAM OVERTON [id number] Tram 00:00:00 00:00:00 JUANITA Seybol d 2023-03-20 2023-03-20 Outpatient TRAM OVERTON [id number] Tram 15:30:00 15:30:00 JUANITA Seybol d 2022-09-22 2022-09-22 Emergency ER TERRIE KINCAID [id number] [facility] 17:29:00 22:00:00 [place] [id number] [facility] 2021-07-25 2021-07-25 Departed ER TERRIE MACK [id number] [facility] 18:43:00 20:30:00 Emergency MICHELLE [address] [facility] 2021-01-08 2021-01-08 Departed [facility] [id number] CHRISTU 15:00:00 16:42:00 Emergency [facility] [address] [facility] 2020-11-04 2020-11-04 Departed TERRIE MUSA [id number] CHRISTU 03:37:00 05:22:00 Emergency ESTES [address] [facility] 2019-07-21 2019-07-21 Departed [facility] [id number] CHRISTU 10:49:00 11:48:00 [facility] [address] [facility] Results Test Description Test Time Test Comments Results Result Comments Source Service comment 04 2021-01-08 14:41:00 Test Item Value Reference Range Interpretation Comme nts Urine Culture Indicated (test code = 8265-1) YES [facility] comment [id number] 14:41:00 Test Item Value Reference Range Interpretation Comments Urine Culture Reflexed NO,C&S NOT INDICATED (test code = 8266-9) [facility] Health[facility]inalysis specimen collection [id number] 14:41:00 Test Item Value Reference Range Interpretation Comments Urine Collection Type (test code = VOIDED 57447-0) [facility] beta-human chorionic gonadotropin (BhCG) detection 2021-01-08 14:41:00 Test Item Value Reference Range Interpretation Comments Urine Test (test code = NEGATIVE NEGATIVE 2-1) [facility] color [id number] 14:41:00 Test Item Value Reference Range Interpretation Comments Urine Color (test code = 5778-6) YELLOW STR/YELLOW [facility]ual urine appearance [id number] 14:41:00 Test Item Value Reference Range Interpretation Comments Urine Appearance (test code = 5767-9) CLEAR CLEAR [facility] pH measurement by test [id number] 14:41:00 Test Item Value Reference Range Interpretation Comments Urine pH (test code = 5803-2) 7.0 5.0-8.0 [facility] HealthSpecific gravity of Urine by Test [id number] 14:41:00 Test Item Value Reference Range Interpretation Comments Urine Specific Shelby (test code = 1.010 1.005-1.030 5811-5) [facility] protein measurement by automated test strip (mass/volume) 2021-01-08 14:41:00 Test Item Value Reference Range Interpretation Comments Urine Protein (test code = 14844-4) NEGATIVE NEGATIVE [facility] glucose measurement by automated test strip (mass/volume) 2021-01-08 14:41:00 Test Item Value Reference Range Interpretation Comments Urine Glucose (UA) (test code = NEGATIVE NEGATIVE 55053-5) [facility] ketones measurement by test strip (mass/volume)2021-01-08 14:41:00 Test Item Value Reference Range Interpretation Comments Urine Ketones (test code = 5797-6) NEGATIVE NEGATIVE [facility] erythrocytes count by automated test strip (number/volume) 2021-01-08 14:41:00 Test Item Value Reference Range Interpretation Comments Urine Occult Blood (test code = NEGATIVE NEGATIVE 15120-0) [facility] nitrite detection by automated test [id number] 14:41:00 Test Item Value Reference Range Interpretation Comments Urine Nitrite (test code = 01855-9) NEGATIVE NEGATIVE [facility] total bilirubin detection by test [id number] 14:41:00 Test Item Value Reference Range Interpretation Comments Urine Bilirubin (test code = 5770-3) NEGATIVE NEGATIVE [facility] urobilinogen measurement by automated test strip (mass/volume)2021-01-08 14:41:00 Test Item Value Reference Range Interpretation Comments Urine Urobilinogen (test code = 0.2 0.2-1.0 81867-9) [facility] leukocyte esterase detection by automated test strip 2021-01-08 14:41:00 Test Item Value Reference Range Interpretation Comments Urine Leukocyte Esterase (test code NEGATIVE NEGATIVE = 63765-6) [facility] color [id number] 03:50:00 Test Item Value Reference Range Interpretation Comments Urine Color (test code = 5778-6) YELLOW STR/YELLOW [facility] urine appearance [id number] 03:50:00 Test Item Value Reference Range Interpretation Comments Urine Appearance (test code = 5767-9) CLEAR CLEAR [facility] pH measurement by test [id number] 03:50:00 Test Item Value Reference Range Interpretation Comments Urine pH (test code = 5803-2) 8.0 5.0-8.0 [facility] HealthSpecific gravity of Urine by Test [id number] 03:50:00 Test Item Value Reference Range Interpretation Comments Urine Specific Shelby (test code = 1.010 1.005-1.030 5811-5) [facility] protein measurement by automated test strip (mass/volume) 2020-11-04 03:50:00 Test Item Value Reference Range Interpretation Comments Urine Protein (test code = 85125-5) NEGATIVE NEGATIVE [facility] glucose measurement by automated test strip (mass/volume) 2020-11-04 03:50:00 Test Item Value Reference Range Interpretation Comments Urine Glucose (UA) (test code = NEGATIVE NEGATIVE 08988-0) [facility]rine ketones measurement by test strip (mass/volume)2020-11-04 03:50:00 Test Item Value Reference Range Interpretation Comments Urine Ketones (test code = 5797-6) NEGATIVE NEGATIVE [facility] erythrocytes count by automated test strip (number/volume) 2020-11-04 03:50:00 Test Item Value Reference Range Interpretation Comments Urine Occult Blood (test code = NEGATIVE NEGATIVE 19441-9) [facility] nitrite detection by automated test [id number] 03:50:00 Test Item Value Reference Range Interpretation Comments Urine Nitrite (test code = 77018-7) NEGATIVE NEGATIVE [facility] total bilirubin detection by test [id number] 03:50:00 Test Item Value Reference Range Interpretation Comments Urine Bilirubin (test code = 5770-3) NEGATIVE NEGATIVE [facility]rine urobilinogen measurement by automated test strip (mass/volume)2020-11-04 03:50:00 Test Item Value Reference Range Interpretation Comments Urine Urobilinogen (test code = 0.2 0.2-1.0 29344-1) [facility] by automated test strip 2020-11-04 03:50:00 Test Item Value Reference Range Interpretation Comments Urine Leukocyte Esterase (test code NEGATIVE NEGATIVE = 77137-0) [facility] 03:[facility]00 Test Item Value Reference Range Interpretation Comments Urine Culture Indicated (test code = YES 8265-1) [facility] 03:50:00 Test Item Value Reference Range Interpretation Comments Urine Culture Reflexed NO,C&S NOT INDICATED (test code = 8266-9) [facility] specimen collection [id number] 03:50:00 Test Item Value Reference Range Interpretation Comments Urine Collection Type (test code = VOIDED 60517-3) [facility] beta-human chorionic gonadotropin (BhCG) detection 2020-11-04 03:50:00 Test Item Value Reference Range Interpretation Comments Urine Test (test code = NEGATIVE NEGATIVE 2-1) [facility]
--- NOTE | 2023-04-04 13:19 | RAD REPORT ---
EXAM DESCRIPTION: RAD - Lumbar Spine 3 Views - 04/04/2023 1:04 pm CLINICAL HISTORY: Back pain FINDINGS: No fracture or dislocation is seen. Mild anterior subluxation L4 on L5 Minimal spondylosis involves the lumbar spine. Osteoarthritis facet joints lower lumbar spine Mild scoliosis
--- NOTE | 2023-04-04 13:23 | EDPHYS ---
Physician Documentation [facility] Name: Lilliam Leahy Age: 42 yrs Sex: Female : 1980 Arrival Date: 04/04/2023 Time: 12:27 Bed 10 Private MD: ED Physician Allan Drew HPI: 04/04 12:48 This 42 yrs old Female presents to ER via Ambulatory with complaints of Facial Injury, snw Back Pain. 12:49 The patient presents with pain that is acute, stepped in a hole (cabinet) and tory snw herself. c/o pain to right lower back, no numbness, tingling to lower ext. The symptoms are located in the low back. Onset: The symptoms/episode began/occurred suddenly. The pain does not radiate. Associated signs and symptoms: The patient has no apparent associated signs or symptoms. Severity of symptoms: At their worst the symptoms were moderate. The patient has experienced similar episodes in the past. hx of scoliosis. 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 ROS: 12:48 Constitutional: Negative for fever, chills, and weight loss, Eyes: Negative for injury, snw pain, redness, and discharge, ENT: Negative for injury, pain, and discharge, Neck: Negative for injury, pain, and swelling, Cardiovascular: Negative for chest pain, palpitations, and edema, Respiratory: Negative for shortness of breath, cough, wheezing, and pleuritic chest pain, Abdomen/GI: Negative for abdominal pain, nausea, vomiting, diarrhea, and constipation, Back: Positive for injury and pain to right lower back : Negative for injury, bleeding, discharge, and swelling, MS/Extremity: Negative for injury and deformity, Skin: Negative for injury, rash, and discoloration, Neuro: Negative for headache, weakness, numbness, tingling, and seizure, Psych: Negative for depression, anxiety, suicide ideation, homicidal ideation, and hallucinations. Exam: 12:47 Constitutional: This is a well developed, well nourished patient who is awake, alert, snw and in no acute distress. Head/Face: Normocephalic, atraumatic. Eyes: Pupils equal round and reactive to light, extra-ocular motions intact. Lids and lashes normal. Conjunctiva and sclera are non-icteric and not injected. Cornea within normal limits. Periorbital areas with no swelling, redness, or edema. ENT: Nares patent. No nasal discharge, no septal abnormalities noted. Tympanic membranes are normal and external auditory canals are clear. Oropharynx with no redness, swelling, or masses, exudates, or evidence of obstruction, uvula midline. Mucous membranes moist. Neck: Trachea midline, no thyromegaly or masses palpated, and no cervical lymphadenopathy. Supple, full range of motion without nuchal rigidity, or vertebral point tenderness. No Meningismus. Chest/axilla: Normal chest wall appearance and motion. Nontender with no deformity. No lesions are appreciated. Cardiovascular: Regular rate and rhythm with a normal S1 and S2. No gallops, murmurs, or rubs. Normal PMI, no JVD. No pulse deficits. Respiratory: Lungs have equal breath sounds bilaterally, clear to auscultation and percussion. No rales, rhonchi or wheezes noted. No increased work of breathing, no retractions or nasal flaring. Abdomen/GI: Soft, non-tender, with normal bowel sounds. No distension or tympany. No guarding or rebound. No evidence of tenderness throughout. Skin: Warm, dry with normal turgor. Normal color with no rashes, no lesions, and no evidence of cellulitis. MS/ Extremity: Pulses equal, no cyanosis. Neurovascular intact. Full, normal range of motion. Neuro: Awake and alert, GCS 15, oriented to person, place, time, and situation. Cranial nerves II-XII grossly intact. Motor strength 5/5 in all extremities. Sensory grossly intact. Cerebellar exam normal. Normal gait. Psych: Awake, alert, with orientation to person, place and time. Behavior, mood, and affect are within normal limits. 12:47 Back: pain, that is moderate, of the right low back, ROM is normal, scoliosis that is moderate. Vital Signs: 12:44 BP 114 / 77; Pulse 74; Resp 18; Temp 98.2(T); Pulse Ox 98% on R/A; Weight 74.84 kg; ml4 Height 5 ft. 4 in. ; Pain 5/10; 12:44 Body Mass Index 28.32 (74.84 kg, 162.56 cm) ml4 12:44 Pain Scale: Adult ml4 MDM: 12:51 Patient medically screened. snw 13:24 Differential diagnosis: Osteoarthritis Osteoporosis Scoliosis vertebral fracture. Data snw reviewed: vital signs, nurses notes, radiologic studies, plain films. I considered the following discharge prescriptions or medication management in the emergency department Medications were administered in the Emergency Department. See MAR. Counseling: I had a detailed discussion with the patient and/or guardian regarding: the historical points, exam findings, and any diagnostic results supporting the discharge/admit diagnosis, radiology results, the need for outpatient follow up, for definitive care, to return to the emergency department if symptoms worsen or persist or if there are any questions or concerns that arise at home. Special discussion: Based on the history and exam findings, there is no indication for further emergent testing or inpatient evaluation. I discussed with the patient/guardian the need to see the back specialist for further evaluation of the symptoms. I discussed with the patient/guardian the need to see the primary care provider for further evaluation of the symptoms. 04/04 12:46 Order name: Lumbar Spine (3 Views) XRAY; Complete Time: 13:21 snw Administered Medications: 13:25 Drug: Diazepam PO 5 mg Route: PO; mb9 13:37 Follow up: Response: No adverse reaction mb9 13:36 Drug: Ketorolac IM 30 mg Route: IM; Site: right deltoid; mb9 13:37 Follow up: Response: No adverse reaction mb9 Disposition: 14:03 I agree with the assessment and plan of care. PA/JEWEL SORTER's history reviewed, patient jr11 interviewed, and examined. I agree with assessment and care plan and confirm the diagnosis (es) above. Disposition Summary: 04/04/23 13:22 Discharge Ordered Location: Home snw Condition: Stable snw Diagnosis - Low back pain snw Followup: snw - With: Emergency Department - When: As needed - Reason: Worsening of condition Followup: snw - With: Private Physician - When: 2 - 3 days - Reason: Recheck today's complaints, Continuance of care, Re-evaluation by your physician Discharge Instructions: - Discharge Summary Sheet snw - Acute Back Pain, Adult snw - Musculoskeletal Pain snw - How to Use Cold Therapy snw - Heat Therapy snw Forms: - Medication Reconciliation Form snw - Thank You Letter snw - Antibiotic Education snw - Prescription Opioid Use snw - Work release form iw Prescriptions: - Diclofenac Sodium 75 mg Oral Tablet Sustained Release - take 1 tablet by ORAL route 2 times per day; 30 tablet; Refills: 0, Product snw Selection Permitted - Pepcid 20 mg Oral Tablet - take 1 tablet by ORAL route once daily; 20 tablet; Refills: 0, Product snw Selection Permitted Signatures: Dispatcher [employer] EDMS Sheree Jordan FNP-C CERTIFIED COURT/MEDICAL INTERPRETER-Csnw Allan Drew MD MD [id number] Theresa Vivas RN RN mb9 VITOR CrespoIII, Kong RN RN ml4 Corrections: (The following items were deleted from the chart) 12:43 12:40 Immunization history Last tetanus immunization: unknown ml4 ml4 12:48 12:47 PMHx: neuropathy; ml4 ml4 12:48 12:47 PMHx: Pre-Diabetes; ml4 ml4 12:48 12:47 PMHx: PCOS; ml4 ml4 12:48 12:47 PMHx: hiatal hernia; ml4 ml4 12:48 12:47 PSHx: Lump removed from r breast; ml4 ml4
--- NOTE | 2023-04-04 13:23 | ER ---
Nurse's Notes [facility] Name: Lilliam Leahy Age: 42 yrs Sex: Female : 1980 Arrival Date: 04/04/2023 Time: 12:27 Bed 10 Private MD: Diagnosis: Low back pain Presentation: 04/04 12:44 Chief complaint: Patient states: fall, R back pain. Coronavirus screen: At this time, ml4 the client does not indicate any symptoms associated with coronavirus-19. Ebola Screen: No symptoms or risks identified at this time. Initial Sepsis Screen: Does the patient meet any 2 criteria? No. Patient's initial sepsis screen is negative. Does the patient have a suspected source of infection? No. Patient's initial sepsis screen is negative. Risk Assessment: Do you want to hurt yourself or someone else? Patient reports no desire to harm self or others. Onset of symptoms was April 03, 2023. Care prior to arrival: None. 12:44 Method Of Arrival: Ambulatory ml4 12:44 Acuity: SOFY 4 ml4 Triage Assessment: 12:48 General: Appears in no apparent distress. comfortable, Behavior is calm, cooperative, ml4 appropriate for age. 12:48 Pain: Complains of pain in low back area and right low back Pain does not radiate. Pain ml4 currently is 5 out of 10 on a pain scale. Quality of pain is described as throbbing, Pain began 1 day ago. Is continuous. EENT: No deficits noted. No signs and/or symptoms were reported regarding the EENT system. Neuro: No deficits noted. Cardiovascular: No deficits noted. Capillary refill < 3 seconds Patient's skin is warm and dry. Respiratory: No deficits noted. Airway is patent Respiratory effort is even, unlabored, Respiratory pattern is regular, agonal. GI: No deficits noted. No signs and/or symptoms were reported involving the gastrointestinal system. : No deficits noted. No signs and/or symptoms were reported regarding the genitourinary system. Derm: No deficits noted. No signs and/or symptoms reported regarding the dermatologic system. Musculoskeletal: No deficits noted. No signs and/or symptoms reported regarding the musculoskeletal system. 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 Screenin:50 [facility] ED Fall Risk Assessment (Adult) History of falling in the last 3 months, mb9 including since admission No falls in past 3 months (0 pts) Confusion or Disorientation No (0 pts) Intoxicated or Sedated No (0 pts) Impaired Gait No (0 pts) Mobility Assist Device Used No (0 pt) Altered Elimination No (0 pt) Score/Fall Risk Level 0 - 2 = Low Risk Oriented to surroundings, Maintained a safe environment, Educated pt \T\ family on fall prevention, incl call for assistance when getting out of bed. Abuse screen: Denies threats or abuse. Nutritional screening: No deficits noted. Tuberculosis screening: No symptoms or risk factors identified. Assessment: 12:52 Reassessment: see triage assessment. mb9 13:37 Reassessment: Patient and/or family updated on plan of care and expected duration. Pain mb9 level reassessed. Patient is alert, oriented x 3, equal unlabored respirations, skin warm/dry/pink. Patient states feeling better. Patient states symptoms have improved. Vital Signs: 12:44 BP 114 / 77; Pulse 74; Resp 18; Temp 98.2(T); Pulse Ox 98% on R/A; Weight 74.84 kg; ml4 Height 5 ft. 4 in. ; Pain 5/10; 12:44 Body Mass Index 28.32 (74.84 kg, 162.56 cm) ml4 12:44 Pain Scale: Adult 4 ED Course: 12:29 Patient arrived in ED. mr 12:41 Triage completed. ml4 12:43 Sheree Jordan FNP-C is PHCP. snw 12:43 Allan Drew MD is Attending Physician. snw 12:47 Theresa Vivas RN is Primary Nurse. mb9 12:47 Arm band placed on. mb9 12:47 Bed in low position. Call light in reach. Side rails up X 1. Client placed on mb9 continuous cardiac and pulse oximetry monitoring. NIBP monitoring applied. 12:50 No provider procedures requiring assistance completed. mb9 13:06 Lumbar Spine (3 Views) XRAY In Process Unspecified. EDMS 13:37 Patient did not have IV access during this emergency room visit. mb9 Administered Medications: 13:25 Drug: Diazepam PO 5 mg Route: PO; mb9 13:37 Follow up: Response: No adverse reaction mb9 13:36 Drug: Ketorolac IM 30 mg Route: IM; Site: right deltoid; mb9 13:37 Follow up: Response: No adverse reaction mb9 Medication: 12:47 VIS not applicable for this client. mb9 Outcome: 13:22 Discharge ordered by . snw 13:37 Discharged to home ambulatory. mb9 13:37 Condition: stable 13:37 Discharge instructions given to patient, Instructed on discharge instructions, follow up and referral plans. Demonstrated understanding of instructions, follow-up care, medications, Prescriptions given X 2. 13:37 Patient left the ED. mb9 Signatures: Dispatcher [employer] EDMS Sheree Jordan, TECHNICAL LABORATORY ASST-C TECHNICAL LABORATORY ASST-Csnw ManuelTheresa correa mr Vivas, Theresa Li, RN RN mb9 Cherie, RNIII, Kong, RN RN ml4 Corrections: (The following items were deleted from the chart) 12:43 12:40 Immunization history Last tetanus immunization: unknown ml4 ml4 12:44 12:40 Chief complaint: Patient states: Fall, landing on R foot but now pain in R lower ml4 back, ambulatory w/ steady gait ml4 12:44 12:40 Care prior to arrival: ml4 ml4 12:44 12:40 Mechanism of Injury: Fall counter height ml4 ml4 12:44 12:40 Trauma event details: Injury occurred: April 03, 2023 ml4 ml4 12:44 12:40 Acuity: SOFY 4 ml4 ml4 12:44 12:40 Method Of Arrival: Ambulatory ml4 ml4 12:44 12:40 Trauma Activation: Not Applicable ml4 ml4 12:44 12:40 General: Appears in no apparent distress. uncomfortable, Behavior is calm, ml4 cooperative, appropriate for age, ml4 12:44 12:40 Pain: Complains of pain in right mid back and right low back Pain does not ml4 radiate. Pain currently is 8 out of 10 on a pain scale. Quality of pain is described as aching, pressure, Pain began 1 day ago. Is continuous, ml4 12:44 12:40 Neuro: No deficits noted. ml4 ml4 12:44 12:40 EENT: No deficits noted. No signs and/or symptoms were reported regarding the ml4 EENT system. ml4 12:44 12:40 Cardiovascular: No deficits noted. ml4 ml4 12:44 12:40 Respiratory: No deficits noted. Airway is patent ml4 ml4 12:44 12:40 GI: No deficits noted. No signs and/or symptoms were reported involving the ml4 gastrointestinal system. ml4 :44 12:40 : No deficits noted. No signs and/or symptoms were reported regarding the ml4 genitourinary system. ml4 12:44 12:40 Derm: No deficits noted. No signs and/or symptoms reported regarding the ml4 dermatologic system. 4 12:44 12:40 Musculoskeletal: Denies ml4 ml4 12:48 12:47 PMHx: neuropathy; ml4 ml4 12:48 12:47 PMHx: Pre-Diabetes; ml4 ml4 12:48 12:47 PMHx: PCOS; ml4 ml4 12:48 12:47 PMHx: hiatal hernia; ml4 ml4 12:48 12:47 PSHx: Lump removed from r breast; ml4 ml4
[2023-04-04] MEDS ORDERED: KETOROLAC 30 MG/ML INJ ONE (13:36)
[2023-04-04] MEDS ORDERED: DIAZEPAM 5 MG TABLET ONE (13:37)
[2023-04-04 14:28] VITALS: BP 114/77; TEMP 98.2; O2SAT 98
== END 2023-04-04 13:37 | disposition home or self-care (01) ==
LOC: ER 12:27
DX: M54.50 Low back pain, unspecified (principal); Z88.0 Allergy status to penicillin
CPT/HCPCS: 72100; 96372; 99284

== ENCOUNTER 2023-04-11 11:11 | Emergency (ER) | payer OTHER ==
--- OUTSIDE RECORDS SUMMARY | 2023-04-11 11:15 | XMS REPORT | Continuity of Care Document ---
:1980 Author Organization [facility] t Address [address] [facility] [address] [place] [address] Care Team Providers Name Role Phone ROGER MAYS Primary Care Physician Unavailable WAQAR ALBA APRN Attending Clinician Unavailable ANTONIETTA BENAVIDEZ Attending Clinician Unavailable MAEVE WARREN Attending Clinician Unavailable JUANITA OVERTON Attending Clinician Unavailable MD KINA Attending Clinician Unavailable YULIANA KINCAID Attending Clinician Unavailable MICHELLE MACK Attending Clinician Unavailable MEERA MUSA Attending Clinician Unavailable Payers Payer Name Policy Type Policy Number Effective Date Expiration Date Ronny ELIZALDE CVS 9 [id number] 2023 00:00:00 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 ON 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 Problems Condition Condition Condition Status Onset Resolution Last Treating Co mments Source Name Details Category Date Date Treatment Clinician Date Cervical Cervical Disease Active Kelse y radiculopa radiculopa 03-20 Se ybold thy thy 00:00: - 00 Externa l Chronic Chronic Disease Active Tram back pain back pain 03-20 Seyb old 00:00: - 00 Externa l Chronic Chronic Disease Active Tram constipati constipati 03-20 Se ybold on on 00:00: - 00 Externa l 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 l Fibromyalg Fibromyalg Disease Active Giles morales ia ia 03-20 Seybold 00:00: - 00 [...] Active Anaphylaxis Giles morales ins ty to 03-19 Seybold adverse 00:00: - reaction 00 Externa [...] Tiwari 10:19:51 female gender - External (finding) History of tobacco Cigarette Smoker Tram Tiwari use - External Sexual orientation Tram Tiwari - External Education 2023-03-20 2023-03-20 17 Tram Tiwrai 00:00:00 00:00:00 - External Alcohol Comment 2023-03-20 2023-03-20 socially, rarely Tyrone Tiwari 00:00:00 00:00:00 - External Alcohol intake 2023-03-20 2023-03-20 Current drinker Danial Tiwari 00:00:00 00:00:00 of alcohol - External (finding) History of Social 2023-03-19 2023-03-19 Tram Tiwari function 00:00:00 00:00:00 - External Cigarettes smoked 2023-03-19 2023-03-19 Tramcristian Tiwari current (pack per 00:00:00 00:00:00 - Exter nal day) - Reported Cigarette 2023-03-19 2023-03-19 Tramcristian Tiwari pack-years 00:00:00 00:00:00 - External Tobacco use and 2023-03-19 2023-03-19 Smokeless tobacco Esvin Tiwari exposure 00:00:00 00:00:00 non-user - External Sex Ass[birth year] At [birth year] Tram puente 00:00:00 00:00:00 - External Smoking Status Start Date Stop Date Source Smokes tobacco daily 2023-03-19 00:00:00 Tram Tiwari - External Medications Ordered Filled Start Stop [...] times daily Cascara Yes Take by Tram Herrera 03-20 mouth Seybold na-Radha Lax 15:35: - (BIOHM 19 Externa 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 OR) Magnesium Yes Take by Kelse y Citrate 100 6-01 mouth Seybold MG oral 15:35: - Capsule 04 Externa l Bisacodyl Yes 5mg Take 1 Tram (DULCOLAX) 6-01 tablet (5 Seyb old 5 MG oral 15:34: mg total) - Tablet 52 by mouth Externa Delayed once l Response Gabapentin 0 Yes [id number] 600 mg Tram 300 MG oral 6-01 every and Sey bold Capsule 00:00: 300 mg - 00 every noon Externa l Cyclobenzap Yes [id number] 10mg QD Take 1 Tram rine HCl 10 6- tablet (10 Se ybold MG oral 00:00: mg total) - Tablet 00 by mouth Externa nightly as l needed for muscle spasms Fluoxetine Yes [id number] 20mg Take 1 Tram HCl 20 MG 6-01 capsule Seybold oral 00:00: (20 mg - Capsule 00 total) by Externa mouth l daily Pantoprazol 0 Yes [id number] 40mg Take 1 Tram e Sodium 40 6-01 tablet (40 Se ybold MG oral 00:00: mg total) - Tablet 00 by mouth Externa Delayed daily l Response Atorvastati Yes [id number] 40mg Take 1 Tram n Calcium 6-01 tablet (40 Seyb old 40 MG oral 00:00: mg total) - Tablet 00 by mouth Externa nightly l Valacyclovi 0 Yes [id number] 1000mg Take 1 Tram r HCl 1 g 6-01 tablet Seybold oral Tablet 00:00: (1,000 mg - 00 total) by Externa mouth 2 l times daily Acetaminoph 0 Yes [id number] 1{tbl} QD Take 1 Tram en-Codeine 6-01 tablet by Seyb old 300-30 MG 00:00: mouth - oral Tablet 00 daily as Exte rna needed for l pain Gabapentin 2022-0 2022- No 300mg Take 1 Tyrone sey 300 MG oral 5-12 06-01 capsule Seyb old Capsule 00:00: 00:00 (300 mg - 00 :00 total) by Externa mouth 3 l times daily Pantoprazol 2022- No 40mg Take 1 Tyrone sey e [...] Take 1 Tyrone sey rine HCl 10 02-03 tablet (10 S eybold MG oral 00:00: [...] 500mg Twice A C HRISTU le (Flagyl) 3- 04-02 Day S 500 Mg TAB 14:59: 00:00 Health 00 :00 Methylpredn 2020-0 No 1 As TREVER U isolone 1-16 Directed S (Medrol 04:01: Health Pack) Tab/Dspk TAB Methylpredn 0 No 1 As TREVER U isolone 1-16 Directed S (Medrol 04:01: Health Pack) Tab/Dspk TAB Cefuroxime No 500mg Twice A CHR ISTU Axetil 1-16 Day S (Ceftin) 04:01: Health 500 Mg TAB 00 Meloxicam No 15mg Daily as CHRI TOLU (Mobic) 15 1-16 needed for S Mg TAB 04:01: Pain Health 00 Methylpredn No 1 As TREVER U isolone 16 Directed S (Medrol 04:01: Health Dose-Pack) 00 21 Tab/Dspk TAB Meloxicam 2020- No 15mg Daily as CHR ISTU (Mobic) 15 16 -16 needed for S Mg TAB 04:01: 00:00 Pain Health 00 :00 Meloxicam 2020- No 15mg Daily as CHR ISTU (Mobic) 15 11-0416 needed for S Mg TAB 04:01: 00:00 [...] TAB 00 needed for Dizziness Azithromyci 2019 No 1 As TREVER U n 0-02 [...] Azithromyci 2018-10- No 1 As CYRIL LEMOS susanna 0-02 08-21 Directed S (Zithromax 11:23: 00:00 Health Z-James) 6 00 :00 Tab/Pkg TAB Azithromyci 2018-10- No 1 As CYRIL LEMOS n 0-08-21 Directed S (Zithromax 11:23: 00:00 Health Z-James) 6 00 :00 Tab/Pkg TAB Azithromyci 2018-10- No 1 As CYRIL LEMOS n 0-08-21 Directed S (Zithromax 11:23: 00:00 Health Z-James) 6 00 :00 Tab/Pkg TAB Acetaminoph 2019- No 1 Every 6 CH RISTU en/Codeine 5-26 10-02 Hours S Phosphate 13:50: 00:00 Health (Tylenol 00 :00 #3) 1 Tab TAB Acetaminoph 2019- No 1 Every 6 CH RISTU en/Codeine 5-26 10-02 Hours S Phosphate 13:50: 00:00 Health (Tylenol 00 :00 #3) 1 Tab TAB Acetaminoph 2019- No 1 Every 6 [...] 2013-10- No 300mg Four Times CHRISTU Hcl 11-03- Daily S (Cleocin) 15:47: 00:00 Health 300 Mg CAP 00 :00 Acetaminoph 2013-10- No 1 Every 6 CH RISTU en/Codeine 11-03 Hours as S Phosphate 15:47: 00:00 needed for H ealth (Tylenol 00 :00 Moderate #3) 1 Tab To Severe TAB Pain(4-10) Clindamycin 2013-10- No 300mg Four Times CH[facility]ST[facility] Hcl 11-0319 Daily S (Cleocin) 15:47: 00:00 Health 300 [...] No 50mg Every 6 CYRIL TU Hcl 10-22 03-19 Hours as S (Ultram) 50 14:00: 00:00 [...] Times A S one [facility] 10/325) 1 Tab TAB Cyclobenzap No 10mg [...] Times A S one [facility] [facility] 1 Tab TAB Cyclobenzap No 10mg [...] Times A S one [facility] [facility] 1 Tab TAB Cyclobenzap No 10mg [...] No .5mg Twice A TREVER U (Ativan) 03 Day S 0.5 Mg TAB 00:00 Health :00 Omeprazole 2015- No 40mg Bedtime CYRIL TU (Prilosec) 03- S 40 Mg CPDR 00:00 Health :00 Cyclobenzap 2015- No 10mg Twice A CHRI TOLU rine Hcl 03-19 Day S (Flexeril) 00:00 Health 10 Mg TAB :00 Gabapentin 2015- No 300mg Three TREVER U (Neurontin) 03-19 Times A S 300 Mg CAP 00:00 Day Health :00 Lorazepam 2015- No .5mg Twice A TREVER U (Ativan) 03- Day S 0.5 Mg TAB 00:00 Health [...] 40 Mg CPDR 00:00 Health :00 Miscellaneo 2013- No 0 Xx For [facility] 15 Order Sets S Information 00:00 Health (No Home :00 Meds) [facility] Miscellaneo 2013- No 0 Xx For [facility] 15 Order Sets S Information 00:00 Health (No Home :00 Meds) [facility] Miscellaneo 2013- No 0 Xx For [facility] 09-03 Order Sets S Information 00:00 Health (No Home :00 Meds) [facility] Vital Signs Vital Name Observation Time Observation Value Comments Source Systolic blood 2023-03-20 20:29:00 122 mm[Hg] Tram Seybold - pressure External Diastolic blood 2023-03-20 20:29:00 73 mm[Hg] Danial khan Seybold - pressure External Heart rate 2023-03-20 20:29:00 93 /min Tram Ronny chengbold - External Body temperature 2023-03-20 20:29:00 36.61 Kelli Alee ey Seybold - External Respiratory rate 2023-03-20 20:29:00 19 /min Alee cheng Seybold - External Body height 2023-03-20 20:29:00 162.6 cm Tram Ronny eybold - External Body weight 2023-03-20 20:29:00 75.297 kg Tram Ronny prosperbold - External BMI 2023-03-20 20:29:00 28.49 kg/m2 Tram Ronny prosperbopritesh - External Oxygen saturation in 2023-03-20 20:29:00 [...] Health BP Diastolic 2019-07-21 11:41:00 52 mm[Hg] [facility] Weight 2019-07-21 10:06:00 165 [lb_av] [facility] BMI (Body Mass Index) 2019-07-21 10:06:00 28.3 kg/m2 [facility] Procedures Procedure Date / Time Performed Performing Clinician Sour e X-ray of foot, three or 2021-07-25 00:00:00 [facility] more views Encounters Start End Encounter Admission Attending Care Care Encounter Source Date/Time Date/Time Type Type Clinicians Facility Department ID 2021-01-08 Inpatient ENRIQUE ALBA [id number] [facility] 09:00:[id number] 2023-07-04 2023-07-04 Outpatient PRAMOD ANTONIETTA TRAM SALGADO [id number] Tram 11:00:00 11:00:00 Seybol d 2023-04-30 2023-04-30 Outpatient TRAM WARREN [id number] Tram 16:15:00 16:15:00 MAEVE Seybol d 2023-04-17 2023-04-17 Outpatient TRAM OVERTON [id number] Tram 15:00:00 15:00:00 JUANITA Seybol d 2023-04-10 2023-04-10 Outpatient TRAM OVERTON [id number] Tram 00:00:00 00:00:00 JUANITA Seybol d 2023-03-31 2023-03-31 Outpatient ELIANA SALGADO [id number] Tram 00:00:00 00:00:00 MD STEPHANE Seybol d 2023-03-30 2023-03-30 Outpatient TRAM OVERTON [id number] Tram 00:00:00 00:00:00 JUANITA Seybol d 2023-03-20 2023-03-20 Outpatient TRAM OVERTON [id number] Tram 15:30:00 15:30:00 JUANITA Seybol d 2022-09-22 2022-09-22 Emergency ER TERRIE KINCAID [id number] [facility] 17:29:00 22:00:00 YULIANA [id number] [facility] 2021-07-25 2021-07-25 Departed ER TERRIE MACK [id number] [facility] 18:43:00 20:30:00 Emergency MICHELLE 57 [facility] 2021-01-08 2021-01-08 Departed [facility] EA07 [id number] [facility] 15:00:00 16:42:[address] [facility] [address] [facility] 2020-11-04 2020-11-04 Departed TERRIE MUSA [id number] [facility] 03:37:00 05:22:00 Emergency DE PEYSTER [address] [facility] 2019-07-21 2019-07-21 Departed [facility] EA07 [id number] [facility] 10:49:00 11:48:[address] [facility] [address] [facility] Results Test Description Test Time Test Comments Results Result Comments Source Urine color determination 2021-01-08 14:41:00 Test Item Value Reference Range Interpretation Comme nts Urine Color (test code = 5778-6) YELLOW STR/YELLOW [facility] appearance [id number] 14:41:00 Test Item Value Reference Range Interpretation Comments Urine Appearance (test code = 5767-9) CLEAR CLEAR [facility] pH measurement by test [id number] 14:41:00 Test Item Value Reference Range Interpretation Comments Urine pH (test code = 5803-2) 7.0 5.0-8.0 [facility] gravity of Urine by Test [id number] 14:41:00 Test Item Value Reference Range Interpretation Comments Urine Specific [place] (test code = 1.010 1.005-1.030 5811-5) [facility] protein measurement by automated test strip (mass/volume) 2021-01-08 14:41:00 Test Item Value Reference Range Interpretation Comments Urine Protein (test code = 49368-6) NEGATIVE NEGATIVE [facility] glucose measurement by automated test strip (mass/volume) 2021-01-08 14:41:00 Test Item Value Reference Range Interpretation Comments Urine Glucose (UA) (test code = NEGATIVE NEGATIVE 52083-6) [facility] ketones measurement by test strip (mass/volume)2021-01-08 14:41:00 Test Item Value Reference Range Interpretation Comments Urine Ketones (test code = 5797-6) NEGATIVE NEGATIVE [facility] erythrocytes count by automated test strip (number/volume) 2021-01-08 14:41:00 Test Item Value Reference Range Interpretation Comments Urine Occult Blood (test code = NEGATIVE NEGATIVE 77037-3) [facility] nitrite detection by automated test [id number] 14:41:00 Test Item Value Reference Range Interpretation Comments Urine Nitrite (test code = 87287-4) NEGATIVE NEGATIVE [facility] total bilirubin detection by test [id number] 14:41:00 Test Item Value Reference Range Interpretation Comments Urine Bilirubin (test code = 5770-3) NEGATIVE NEGATIVE [facility] urobilinogen measurement by automated test strip (mass/volume)2021-01-08 14:41:00 Test Item Value Reference Range Interpretation Comments Urine Urobilinogen (test code = 0.2 0.2-1.0 68315-9) [facility] leukocyte esterase detection by automated test strip 2021-01-08 14:41:00 Test Item Value Reference Range Interpretation Comments Urine Leukocyte Esterase (test code NEGATIVE NEGATIVE = 01168-1) [facility] comment 14:41:00 Test Item Value Reference Range Interpretation Comments Urine Culture Indicated (test code = YES 8265-1) [facility] comment 14:41:00 Test Item Value Reference Range Interpretation Comments Urine Culture Reflexed NO,C&S NOT INDICATED (test code = 8266-9) [facility] HealthUrinalysis specimen collection [id number] 14:41:00 Test Item Value Reference Range Interpretation Comments Urine Collection Type (test code = VOIDED 14841-6) [facility] beta-human chorionic gonadotropin (BhCG) detection 2021-01-08 14:41:00 Test Item Value Reference Range Interpretation Comments Urine Test (test code = NEGATIVE NEGATIVE 2-1) [facility] protein measurement by automated test strip (mass/volume) 2020-11-04 03:50:00 Test Item Value Reference Range Interpretation Comments Urine Protein (test code = 35567-8) NEGATIVE NEGATIVE [facility] glucose measurement by automated test strip (mass/volume) 2020-11-04 03:50:00 Test Item Value Reference Range Interpretation Comments Urine Glucose (UA) (test code = NEGATIVE NEGATIVE 69463-4) [facility] ketones measurement by test strip (mass/volume)2020-11-04 03:50:00 Test Item Value Reference Range Interpretation Comments Urine Ketones (test code = 5797-6) NEGATIVE NEGATIVE [facility] erythrocytes count by automated test strip (number/volume) 2020-11-04 03:50:00 Test Item Value Reference Range Interpretation Comments Urine Occult Blood (test code = NEGATIVE NEGATIVE 56393-4) [facility] nitrite detection by automated test [id number] 03:50:00 Test Item Value Reference Range Interpretation Comments Urine Nitrite (test code = 15168-4) NEGATIVE NEGATIVE [facility] total bilirubin detection by test [id number] 03:50:00 Test Item Value Reference Range Interpretation Comments Urine Bilirubin (test code = 5770-3) NEGATIVE NEGATIVE [facility] urobilinogen measurement by automated test strip (mass/volume)2020-11-04 03:50:00 Test Item Value Reference Range Interpretation Comments Urine Urobilinogen (test code = 0.2 0.2-1.0 50027-3) [facility] leukocyte esterase detection by automated test strip 2020-11-04 03:50:00 Test Item Value Reference Range Interpretation Comments Urine Leukocyte Esterase (test code NEGATIVE NEGATIVE = 71547-3) [facility] comment 03:50:00 Test Item Value Reference Range Interpretation Comments Urine Culture Indicated (test code = YES 8265-1) [facility] comment 03:50:00 Test Item Value Reference Range Interpretation Comments Urine Culture Reflexed NO,C&S NOT INDICATED (test code = 8266-9) [facility] Health[facility]inalysis specimen collection [id number] 03:50:00 Test Item Value Reference Range Interpretation Comments Urine Collection Type (test code = VOIDED 06556-8) [facility] beta-human chorionic gonadotropin (BhCG) detection 2020-11-04 03:50:00 Test Item Value Reference Range Interpretation Comments Urine Test (test code = NEGATIVE NEGATIVE 2-1) [facility] color [id number] 03:50:00 Test Item Value Reference Range Interpretation Comments Urine Color (test code = 5778-6) YELLOW STR/YELLOW [facility] urine appearance [id number] 03:50:00 Test Item Value Reference Range Interpretation Comments Urine Appearance (test code = 5767-9) CLEAR CLEAR [facility] pH measurement by test [id number] 03:50:00 Test Item Value Reference Range Interpretation Comments Urine pH (test code = 5803-2) 8.0 5.0-8.0 [facility] [id number] 03:50:00 Test Item Value Reference Range Interpretation Comments Urine Specific [place] (test code = 1.010 1.005-1.030 5811-5) [facility]
[2023-04-11] MEDS ORDERED: HYDROCODONE/APAP 10/325 TAB ONE (11:44)
[2023-04-11] MEDS ORDERED: KETOROLAC 30 MG/ML INJ ONE (11:44)
[2023-04-11 12:08] LABS: Specific Gravity 1.025 (1.005-1.030); Urine Bacteria None Seen /HPF (<20); Urine Bilirubin NEGATIVE (Negative); Urine Blood Negative (Negative); Urine Clarity Clear (Clear); Urine Color Light-Yellow (Yellow); Urine Glucose NEGATIVE (Negative); Urine Mucus Slight /HPF (None Seen); Urine Protein TRACE (Negative); Urine RBC <5 /HPF (None Seen); Urine Urobilinogen Normal (Normal); Urine pH 6.5 (5.0-7.0)
--- NOTE | 2023-04-11 12:19 | ER ---
Nurse's Notes [facility] Name: Lilliam Leahy Age: 42 yrs Sex: Female : 1980 Arrival Date: 04/11/2023 Time: 11:11 Bed 9 Private MD: Jose Castle Diagnosis: Low back pain Presentation: 04/11 11:21 Chief complaint: Patient states: lower back and left hip and left leg pain. Patient cm10 states that she injured her back last Mal[place] at work and was seen here and was told to follow-up with neurology. Pt states that the pain has gotten worse. Coronavirus screen: Vaccine status: Patient reports being unvaccinated. Client denies travel out of the [place] in the last 14 days. At this time, the client does not indicate any symptoms associated with coronavirus-19. Ebola Screen: Patient denies travel to an Ebola-affected area in the 21 days before illness onset. No symptoms or risks identified at this time. Initial Sepsis Screen: Does the patient meet any 2 criteria? No. Patient's initial sepsis screen is negative. Does the patient have a suspected source of infection? No. Patient's initial sepsis screen is negative. Risk Assessment: Do you want to hurt yourself or someone else? Patient reports no desire to harm self or others. Onset of symptoms was April 04, 2023. 11:21 Method Of Arrival: Ambulatory cm10 11:21 Acuity: SOFY 4 cm10 Triage Assessment: 11:23 General: Appears in no apparent distress. uncomfortable, Behavior is calm, cooperative. cm10 Pain: Complains of pain in low back area Pain radiates to left leg. Neuro: No deficits noted. Level of Consciousness is awake, alert, Oriented to person, place, time, situation. Respiratory: No deficits noted. Airway is patent Respiratory effort is even, unlabored, Respiratory pattern is regular, symmetrical. Musculoskeletal: Circulation, motion, and sensation intact. PHLEBOTOMIST PRN: 11:29 LMP N/A - Hysterectomy cm10 Historical: - Allergies: 11:23 PENICILLINS; cm10 - PMHx: 11:23 Fibromyalgia; Hypercholesterolemia; scoliosis; cm10 - PSHx: 11:23 back sx; Tonsillectomy; Total abdominal hysterectomy; cm10 11:30 hysterectomy; cm10 - Immunization history:: Adult Immunizations up to date. - Social history:: Smoking status: Patient reports the use of cigarette tobacco products, smokes one pack cigarettes per day. Screenin:25 [facility] ED Fall Risk Assessment (Adult) History of falling in the last 3 months, cm10 including since admission No falls in past 3 months (0 pts) Confusion or Disorientation No (0 pts) Intoxicated or Sedated No (0 pts) Impaired Gait No (0 pts) Mobility Assist Device Used No (0 pt) Altered Elimination No (0 pt) Score/Fall Risk Level 0 - 2 = Low Risk Oriented to surroundings, Maintained a safe environment. Abuse screen: Denies threats or abuse. Denies injuries from another. Nutritional screening: No deficits noted. Tuberculosis screening: No symptoms or risk factors identified. Assessment: 11:29 Reassessment: No changes from previously documented assessment. Patient is alert, cm10 oriented x 3, equal unlabored respirations, skin warm/dry/pink. Neuro: No deficits noted. Level of Consciousness is awake, alert, Oriented to person, place, time, situation. 11:45 Reassessment: No changes from previously documented assessment. Patient and/or family ll1 updated on plan of care and expected duration. Pain level reassessed. Patient is alert, oriented x 3, equal unlabored respirations, skin warm/dry/pink. 12:32 Reassessment: No changes from previously documented assessment. Patient and/or family ll1 updated on plan of care and expected duration. Pain level reassessed. Patient is alert, oriented x 3, equal unlabored respirations, skin warm/dry/pink. Vital Signs: 11:21 BP 115 / 86; Pulse 99; Resp 16; Temp 98.2; Pulse Ox 100% on R/A; Weight 74.84 kg; cm10 Height 5 ft. 4 in. ; Pain 6/10; 12:31 BP 112 / 74; Pulse 85; Resp 16; Pulse Ox 100% ; ll1 11:21 Body Mass Index 28.32 (74.84 kg, 162.56 cm) cm10 11:21 Pain Scale: Adult cm10 ED Course: 11:12 Patient arrived in ED. am2 11:12 Jose Castle DO is Private Physician. am2 11:21 Saritha Stiles F[facility]-C [facility] kb 11:21 John Nolasco MD is Attending Physician. kb 11:22 Triage completed. cm10 11:25 Arm band placed on. cm10 11:25 Patient has correct armband on for positive identification. cm10 11:36 Amna Orr, RN is Primary Nurse. ll1 11:45 Urinalysis w/ reflexes Sent. ll1 12:32 No provider procedures requiring assistance completed. Patient did not have IV access ll1 during this emergency room visit. Administered Medications: 11:45 Drug: Ketorolac IM 30 mg Route: IM; Site: right deltoid; ll1 12:32 Follow up: Response: No adverse reaction ll1 11:45 Drug: Udall PO 10 mg-325 mg 1 tabs Route: PO; ll1 12:32 Follow up: Response: No adverse reaction; Pain is decreased; RASS: Alert and Calm (0) ll1 Medication: 11:25 VIS not applicable for this client. cm10 Outcome: 12:18 Discharge ordered by MD. kb 12:32 Discharged to home ambulatory. ll1 12:32 Condition: stable 12:32 Discharge instructions given to patient, Instructed on discharge instructions, follow up and referral plans. medication usage, Demonstrated understanding of instructions, follow-up care, medications, Prescriptions given X 1. 12:32 Patient left the ED. ll1 Signatures: Saritha Stiles, FOOT GATHERER-C FOOT GATHERER-Wendy Uriostegui am2 Amna Orr, RN RN ll1 Ange Medel RN RN cm10 Corrections: (The following items were deleted from the chart) 11:31 11:30 PSHx: hysterctomy; cm10 cm10
--- NOTE | 2023-04-11 12:19 | EDPHYS ---
Physician Documentation [facility] Name: Lilliam Leahy Age: 42 yrs Sex: Female : 1980 Arrival Date: 04/11/2023 Time: 11:11 Bed 9 Private MD: Jose Castle ED Physician John Nolasco HPI: 04/11 13:38 This 42 yrs old Female presents to ER via Ambulatory with complaints of Back Pain. kb 13:38 The patient presents with pain that is chronic. The symptoms are located in the low kb back. Onset: The symptoms/episode began/occurred 9 day(s) ago. The pain radiates to the left leg. Associated signs and symptoms: The patient has no apparent associated signs or symptoms. The problem was sustained from a chronic condition, during a fall. The patient has experienced similar episodes in the past, several times. 13:39 Modifying factors: The patient symptoms are alleviated by nothing, the patient symptoms kb are aggravated by any movement. Severity of symptoms: At their worst the symptoms were moderate, in the emergency department the symptoms are unchanged. The patient has not recently seen a physician. Pt reports lower back pain that radiates down left leg. States she always has back pain, but it became worse when she tory it at work 9 days ago. Was seen here and given diclofenac after no acute findings on lumbar x-ray. Was prescribed tylenol #[address] Castle for pain and is already taking flexeril and gabapentin for chronic pain. States she has a follow up appt with spine on 04/30, but has been working and it has been making the pain worse. 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 - Social history:: Smoking status: Patient reports the use of cigarette tobacco products, smokes one pack cigarettes per day. ROS: 12:13 Constitutional: Negative for fever, chills, and weight loss. kb 12:13 Back: Positive for pain at rest, pain with movement, radiated pain, of the lumbar area and left low back. 12:13 All other systems are negative. Exam: 12:13 Constitutional: This is a well developed, well nourished patient who is awake, alert, kb and in no acute distress. Head/Face: Normocephalic, atraumatic. ENT: Moist Mucous membranes Cardiovascular: Regular rate and rhythm with a normal S1 and S2. No gallops, murmurs, or rubs. No pulse deficits. Respiratory: Respirations even and unlabored. No increased work of breathing. Talking in full sentences Abdomen/GI: Soft, non-tender. No distention Skin: Warm, dry with normal turgor. Normal color. MS/ Extremity: Pulses equal, no cyanosis. Neurovascular intact. Full, normal range of motion. Neuro: Awake and alert, GCS 15, oriented to person, place, time, and situation. Moves all extremities. Normal gait. 12:13 Back: pain, that is moderate, of the lumbar area and left low back. Vital Signs: 11:21 BP 115 / 86; Pulse 99; Resp 16; Temp 98.2; Pulse Ox 100% on R/A; Weight 74.84 kg; cm10 Height 5 ft. 4 in. ; Pain 6/10; 12:31 BP 112 / 74; Pulse 85; Resp 16; Pulse Ox 100% ; ll1 11:21 Body Mass Index 28.32 (74.84 kg, 162.56 cm) cm10 11:21 Pain Scale: Adult cm10 MDM: 11:21 Patient medically screened. kb 13:37 Data reviewed: vital signs, nurses notes. kb 13:37 Differential diagnosis: chronic pain, sciatica, uti. Counseling: I had a detailed kb discussion with the patient and/or guardian regarding: the historical points, exam findings, and any diagnostic results supporting the discharge/admit diagnosis, lab results, the need for outpatient follow up, a family practitioner, to return to the emergency department if symptoms worsen or persist or if there are any questions or concerns that arise at home. ED course: Pt has follow up with Dr Castle on and is scheduled to see a spine dr on 04/30/23. 04/11 11:33 Order name: Urinalysis w/ reflexes; Complete Time: 12:08 kb Administered Medications: 11:45 Drug: Ketorolac IM 30 mg Route: IM; Site: right deltoid; ll1 12:32 Follow up: Response: No adverse reaction ll1 11:45 Drug: [place] PO 10 mg-325 mg 1 tabs Route: PO; ll1 12:32 Follow up: Response: No adverse reaction; Pain is decreased; RASS: Alert and Calm (0) ll1 Disposition: 14:55 Co-signature as Attending Physician, John Nolasco MD I reviewed the patient's care rt provided by the Advanced Practice Provider and agree with the diagnosis and treatment plan. Disposition Summary: 04/11/23 12:18 Discharge Ordered Location: Home kb Condition: Stable kb Diagnosis - Low back pain kb Followup: kb - With: Emergency Department - When: As needed - Reason: Worsening of condition Followup: kb - With: Private Physician - When: 2 - 3 days - Reason: Recheck today's complaints, Continuance of care, Re-evaluation by your physician Discharge Instructions: - Discharge Summary Sheet kb - Musculoskeletal Pain kb - Chronic Back Pain, [id number] kb - Sciatica, [id number] kb Forms: - Work release form kb - Medication Reconciliation Form kb - Thank You Letter kb - Antibiotic Education kb - Prescription Opioid Use kb Prescriptions: - Prednisone 20 mg Oral Tablet - take 1 tablet by ORAL route once daily for 5 days; 5 tablet; Refills: 0, kb Product Selection Permitted Signatures: Dispatcher [employer] Saritha Morris, SUPERINTENDENT LOCAL-C SUPERINTENDENT LOCAL-Amna Penny RN RN ll1 John Nolasco MD MD rt Ange Medel RN RN cm10 Corrections: (The following items were deleted from the chart) 11:31 11:30 PSHx: hysterctomy; cm10 cm10
[2023-04-11 12:46] VITALS: TEMP 98.2; O2SAT 100
[2023-04-11 12:57] VITALS: BP 112/74
== END 2023-04-11 12:32 | disposition home or self-care (01) ==
LOC: ER 11:11
DX: M54.50 Low back pain, unspecified (principal); E78.00 Pure hypercholesterolemia, unspecified; F17.210 Nicotine dependence, cigarettes, uncomplicated; Z88.0 Allergy status to penicillin
CPT/HCPCS: 81001; 96372; 99284

== ENCOUNTER 2023-06-05 15:40 | Emergency (ER) | payer OTHER ==
--- OUTSIDE RECORDS SUMMARY | 2023-06-05 15:45 | XMS REPORT | Continuity of Care Document ---
:1980 Author Organization [facility] t Address [address] [facility] [address] [place] [address] Care Team Providers Name Role Phone ROGER MAYS Primary Care Physician Unavailable WAQAR ALBA APRN Attending Clinician Unavailable MAEVE WARREN Attending Clinician Unavailable JUANITA OVERTON Attending Clinician Unavailable DEMARCO HUFFMAN Attending Clinician Unavailable ANTONIETTA BENAVIDEZ Attending Clinician Unavailable ORQUIDEA GALLEGOS Attending Clinician Unavailable HARRIET GRANT Attending Clinician Unavailable TRED91 Attending Clinician Unavailable LAB91 Attending Clinician Unavailable MD KINA Attending Clinician Unavailable LAB90 Attending Clinician Unavailable YULIANA KINCAID Attending Clinician Unavailable MICHELLE MACK Attending Clinician Unavailable MEERA MUSA Attending Clinician Unavailable Payers Payer Name Policy Type Policy Number Effective Date Expiration Date Ronny jatin [facility]ON[facility] 9 [id number] 2023 00:00:00 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 Problems Condition Condition Condition Status Onset Resolution Last Treating Co mments Source Name Details Category Date Date Treatment Clinician Date Well adult Well adult Disease Active K elsey exam exam 6- Seybold 00:00: - 00 Externa l Overweight Overweight Disease Active K elsey (BMI (BMI 6-29 Seybold 25.0-29.9) 25.0-29.9) 00:00: - 00 Externa l Cervical Cervical Disease Active Kelse y radiculopa radiculopa 6- Se ybold thy thy 00:00: - 00 [...] purpura l Fibromyalg Fibromyalg Disease Active K carmen ia ia 03-20 Seybold 00:00: - 00 Externa l Hiatal Hiatal Disease Active Tram hernia hernia 03-20 Seybold with GERD with GERD 00:00: - 00 Externa l Scoliosis Scoliosis Disease Active Tyrone sey 03-20 Seybold 00:00: - 00 Externa l Surgical Surgical Disease Active Kelse y menopause menopause 03-20 Seyb old on hormone on hormone 00:00: - replacemen replacemen 00 Ex terna t therapy t therapy l History of History of Disease Active Giles carmen PCOS PCOS 03-20 Seybold 00:00: - 00 Externa l Herpes Herpes Disease Active Tram genitalis genitalis 03-20 Seyb old in women in women 00:00: - 00 Externa l Bipolar 1 Bipolar 1 Disease Active Tyrone sey disorder disorder 03-20 Seybol d 00:00: - [...] Date Date Clinician Penicill Propensi Active Anaphylaxis K carmen ins ty to 03-19 Seybold adverse 00:00: [...] Comments Source Gender identity 2023-02-18 Identifies as Tramcristian Tiwari 10:19:51 female gender - External (finding) Sexual orientation Tram Tiwari - External History of tobacco Cigarette Smoker Tram Tiwari use - External Alcohol intake 2023-06-03 2023-06-03 Current drinker Danial Tiwari 00:00:00 00:00:00 of alcohol - External (finding) Alcohol Comment 2023-04-17 2023-04-17 rarely Tram Tai cindi 00:00:00 00:00:00 - External Education 2023-03-20 2023-03-20 17 Tram Te 00:00:00 00:00:00 - External History of Social 2023-03-19 2023-03-19 Tram Taicindi function 00:00:00 00:00:00 - External Cigarettes smoked 2023-03-19 2023-03-19 Tram Tiwari current (pack per 00:00:00 00:00:00 - Exter nal day) - Reported Cigarette 2023-03-19 2023-03-19 Tram Taijasielmukund pack-years 00:00:00 00:00:00 - External Tobacco use and 2023-03-19 2023-03-19 Smokeless tobacco Esvin monsonprosper cindi exposure 00:00:00 00:00:00 non-user - External Sex Ass[birth year] At [birth year] Tramcristian puente 00:00:00 00:00:00 - External Smoking Status Start Date Stop Date Source Smokes tobacco daily 2023-03-19 00:00:00 Tram Perrymukund - External Medications Ordered Filled Start Stop Current Ordering Indication Dosage Frequency Signature Comments Components Source Medication Medication Date Date Medication? Clinician (SIG) Name Name Bisacodyl 2022- No 5mg Take 1 Kelse y (DULCOLAX) 8-15 08-15 tablet (5 Sey bold 5 MG oral 16:05: 00:00 mg total) - Tablet 34 :00 by mouth Externa Delayed once l Response HYDROcodone 2022-0 Yes [id number] 1{tbl} Q.25D Take 1 Tram -Acetaminop 8-15 tablet by [employer] lang 10-325 00:00: mouth - MG oral 00 every 6 Externa Tablet hours as l needed for pain Pantoprazol Yes [id number] 40mg Take 1 Tram e Sodium 40 8-01 tablet (40 Se ybold MG oral 00:00: mg total) - Tablet 00 by mouth Externa Delayed daily l Response HYDROcodone 2022-0 Yes [id number] 1{tbl} Q.63704713 Take 1 Tram -Acetaminop 7-20 [id number] tablet by 3 Four 5 Group lang 10-325 00:00: 3D mouth - MG oral 00 every 8 Externa Tablet hours as l needed for pain HYDROcodone 2022-2022- No [id number] 1{tbl} Q.90721800 Take 1 Tram -Acetaminop 7-20 08-15 [id number] tablet by 3 Four 5 Group hen 10-325 00:00: 00:00 3D mouth - MG oral 00 :00 every 8 Externa Tablet hours as l needed for pain Naloxone 2022- Yes [id number] 4mg 0.1 mL (4 Tram (NARCAN) 4 7-20 07-21 mg total) Sey bold MG/0.1ML 00:00: 04:59 by nasal - nasal 00 :00 route once Externa Liquid for 1 dose l [facility] in nostril then call 911 Bisacodyl 0 Yes 5mg Take 1 Tram (DULCOLAX) 7-12 tablet (5 Seyb old 5 MG oral 15:37: mg total) - Tablet 49 by mouth Externa Delayed once l Response Magnesium Yes Take by Danial y Citrate 100 7-12 mouth Seybold MG oral 15:37: - Capsule 49 Externa l Cascara Yes Take by Tram Ayala-Sen 7-12 mouth Seybold na-Radha Lax 15:37: - (BIOHM 49 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 OR) Bisacodyl 0 Yes 5mg Take 1 Tram (DULCOLAX) 7-12 tablet (5 Seyb old 5 MG oral 15:37: mg total) - Tablet 49 by mouth Externa Delayed once l Response Magnesium Yes Take by Kelse y Citrate 100 7-12 mouth Seybold MG oral 15:37: - Capsule 49 Externa l Cascara 0 Yes Take by Tram Sagrada-Sen 7-12 mouth Seybold na-Radha Lax 15:37: - (BIOHM 49 Externa 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 OR) Magnesium 0 Yes Take by Kelse y Citrate 100 7-12 mouth Seybold MG oral 15:37: - Capsule 49 Externa l Cascara Yes Take by Tram Sagrada-Sen 7-12 mouth Seybold na-Radha Lax 15:37: - (BIOHM 49 Externa 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 OR) Bisacodyl Yes 5mg Take 1 Tram (DULCOLAX) 6-29 tablet (5 Seyb old 5 MG oral 14:33: mg total) - Tablet 22 by mouth Externa Delayed once l Response Magnesium Yes Take by Kelse y Citrate 100 6-29 mouth Seybold MG oral 14:33: - Capsule 22 Externa l Cascara Yes Take by Tram Anujarada-Sen 6-29 mouth Seybold na-Radha Lax 14:33: - (BIOHM 22 Externa 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 OR) Gabapentin 0 Yes [id number] 600 mg Tram 300 MG oral 6-29 every am Seyb old Capsule 00:00: and 600 mg - 00 every noon Externa l Gabapentin 2022-0 Yes [id number] 600 mg Tram 300 MG oral 6-29 every am Seyb old Capsule 00:00: and 600 mg - 00 every noon Externa l Gabapentin 2022-0 Yes [id number] 600 mg Tram 300 MG oral 6-29 every am Seyb old Capsule 00:00: and 600 mg - 00 every noon Externa l Gabapentin 2022-0 Yes [id number] 600 mg Tram 300 MG oral 6-29 every am Seyb old Capsule 00:00: and 600 mg - 00 every noon Externa l Acetaminoph 2022-0 Yes [id number] 1{tbl} QD Take 1 Tram en-Codeine 6-23 tablet by Seyb old 300-30 MG 00:00: mouth - oral Tablet 00 daily as Exte rna needed for l pain Acetaminoph 0 Yes [id number] 1{tbl} QD Take 1 Tram en-Codeine 6-23 tablet by Seyb old 300-30 MG 00:00: mouth - oral Tablet 00 daily as Exte rna needed for l pain Acetaminoph 0 2022- No [id number] 1{tbl} QD Take 1 Tram en-Codeine 6-23 07-20 tablet by Sey bold 300-30 MG 00:00: 00:00 mouth - oral Tablet 00 :00 daily as Exte rna needed for l pain Atorvastati 0 2022- No 40mg Take 1 Tyrone sey n Calcium -03-20 tablet (40 Sey bold 40 MG oral 16:06: 00:00 mg total) - Tablet 59 :00 by mouth Externa daily l Valacyclovi 2022-0 2022- No 1000mg Take 1 K elsey r HCl 1 g 03-20 tablet Seybold oral Tablet 16:06: 00:00 (1,000 mg - 59 :00 total) by Externa mouth 2 l times daily Cascara Yes Take by Tram Herrera 03-20 mouth Seybold na-Radha Lax 15:35: - (BIO 19 Externa 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 OR) Magnesium Yes Take by Danial khan Citrate 100 03-20 mouth Seybold MG oral 15:35: - Capsule 04 Externa l Bisacodyl Yes 5mg Take 1 Tram (DULCOLAX) 03-20 tablet (5 Seyb old 5 MG oral 15:34: mg total) - Tablet 52 by mouth Externa Delayed once l Response Cyclobenzap Yes [id number] 10mg QD Take 1 Tram rine HCl 10 - tablet (10 Se ybold MG oral 00:00: mg total) - Tablet 00 by mouth Externa nightly as l needed for muscle spasms Fluoxetine Yes [id number] 20mg Take 1 Tram HCl 20 MG - capsule Seybold oral 00:00: (20 mg - Capsule 00 total) by Externa mouth l daily Pantoprazol 2022-0 Yes [id number] 40mg Take 1 Tram e Sodium 40 6-01 tablet (40 Se ybold MG oral 00:00: mg total) - Tablet 00 by mouth Externa Delayed daily l Response Atorvastati 2022-0 Yes [id number] 40mg Take 1 Tram n Calcium 6-01 tablet (40 Seyb old 40 MG oral 00:00: mg total) - Tablet 00 by mouth Externa nightly l Valacyclovi 2022-0 Yes [id number] 1000mg Take 1 Tram r HCl 1 g 6-01 tablet Seybold oral Tablet 00:00: (1,000 mg - 00 total) by Externa mouth 2 l times daily Cyclobenzap 2022-0 Yes [id number] 10mg QD Take 1 Tram rine HCl 10 6-01 tablet (10 Se ybold MG oral 00:00: mg total) - Tablet 00 by mouth Externa nightly as l needed for muscle spasms Fluoxetine 2022-0 Yes [id number] 20mg Take 1 Tram HCl 20 MG 6-01 capsule Seybold oral 00:00: (20 mg - Capsule 00 total) by Externa mouth l daily Pantoprazol 2022-0 Yes [id number] 40mg Take 1 Tram e Sodium 40 6-01 tablet (40 Se ybold MG oral 00:00: mg total) - Tablet 00 by mouth Externa Delayed daily l Response Atorvastati 2022-0 Yes [id number] 40mg Take 1 Tram n Calcium 6-01 tablet (40 Seyb old 40 MG oral 00:00: mg total) - Tablet 00 by mouth Externa nightly l Valacyclovi 2022-0 Yes [id number] 1000mg Take 1 Tram r HCl 1 g 6-01 tablet Seybold oral Tablet 00:00: (1,000 mg - 00 total) by Externa mouth 2 l times daily Cyclobenzap 2022-0 Yes [id number] 10mg QD Take 1 Tram rine HCl 10 6-01 tablet (10 Se ybold MG oral 00:00: mg total) - Tablet 00 by mouth Externa nightly as l needed for muscle spasms Fluoxetine 2022-0 Yes [id number] 20mg Take 1 Tram HCl 20 MG 6-01 capsule Seybold oral 00:00: (20 mg - Capsule 00 total) by Externa mouth l daily Atorvastati 2022-0 Yes [id number] 40mg Take 1 Tram n Calcium 6-01 tablet (40 Seyb old 40 MG oral 00:00: mg total) - Tablet 00 by mouth Externa nightly l Valacyclovi 2022-0 Yes [id number] 1000mg Take 1 Tram r HCl 1 g 6-01 tablet Seybold oral Tablet 00:00: (1,000 mg - 00 total) by Externa mouth 2 l times daily Gabapentin 2022-0 Yes [id number] 600 mg Tram 300 MG oral 6-01 every and Sey bold Capsule 00:00: 300 mg - 00 every noon Externa l Cyclobenzap 2022-0 Yes [id number] 10mg QD Take 1 Tram rine HCl 10 6-01 tablet (10 Se ybold MG oral 00:00: mg total) - Tablet 00 by mouth Externa nightly as l needed for muscle spasms Fluoxetine 2022-0 Yes [id number] 20mg Take 1 Tram HCl 20 MG 6-01 capsule Seybold oral 00:00: (20 mg - Capsule 00 total) by Externa mouth l daily Pantoprazol 2022-0 Yes [id number] 40mg Take 1 Tram e Sodium 40 6-01 tablet (40 Se ybold MG oral 00:00: mg total) - Tablet 00 by mouth Externa Delayed daily l Response Atorvastati 2022-0 Yes [id number] 40mg Take 1 Tram n Calcium 6-01 tablet (40 Seyb old 40 MG oral 00:00: mg total) - Tablet 00 by mouth Externa nightly l Valacyclovi 2022-0 Yes [id number] 1000mg Take 1 Tram r HCl 1 g 6-01 tablet Seybold oral Tablet 00:00: (1,000 mg - 00 total) by Externa mouth 2 l times daily Acetaminoph 2022-0 Yes [id number] 1{tbl} QD Take 1 Tram en-Codeine 6-01 tablet by Seyb old 300-30 MG 00:00: mouth - oral Tablet 00 daily as Exte rna needed for l pain Cyclobenzap 2022-0 Yes [id number] 10mg QD Take 1 Tram rine HCl 10 6-01 tablet (10 Se ybold MG oral 00:00: mg total) - Tablet 00 by mouth Externa nightly as l needed for muscle spasms Fluoxetine 2022-0 Yes [id number] 20mg Take 1 Tram HCl 20 MG 6- capsule Seybold oral 00:00: (20 mg - Capsule 00 total) by Externa mouth l daily Pantoprazol 2022-0 Yes [id number] 40mg Take 1 Tram e Sodium 40 6- tablet (40 Se ybold MG oral 00:00: mg total) - Tablet 00 by mouth Externa Delayed daily l Response Atorvastati 2022-0 Yes [id number] 40mg Take 1 Tram n Calcium 6-01 tablet (40 Seyb old 40 MG oral 00:00: mg total) - Tablet 00 by mouth Externa nightly l Valacyclovi 2022-0 Yes [id number] 1000mg Take 1 Tram r HCl 1 g - tablet Seybold oral Tablet 00:00: (1,000 mg - 00 total) by Externa mouth 2 l times daily Gabapentin 2022-0 3- No [id number] 600 mg Tram 300 MG oral 03-20 every and Se ybold Capsule 00:00: 00:00 300 mg - 00 :00 every noon Externa l Gabapentin 2022-0 2022- No 300mg Take 1 Tyrone sey 300 MG oral 02-28- capsule Seyb old Capsule 00:00: 00:00 (300 mg - 00 :00 total) by Externa mouth 3 l times daily Pantoprazol 2022-0 2022- No 40mg Take 1 Tyrone sey e Sodium 40 02-21 tablet (40 S eybold MG oral 00:00: 00:00 mg total) - Tablet 00 :00 by mouth Externa Delayed daily l Response Progesteron 2022-0 Yes 200mg Take 1 Tyrone sey e 200 MG 4-17 capsule Seybold oral 00:00: (200 mg - Capsule 00 total) by Externa mouth l daily Estradiol 2 2022-0 Yes 2mg Take 1 Alee ey MG oral 4-17 tablet (2 Seybold Tablet 00:00: mg total) - 00 by mouth Externa daily l Progesteron 2022-0 Yes 200mg Take 1 Tyrone sey e 200 MG 4-17 capsule Seybold oral 00:00: (200 mg - Capsule 00 total) by Externa mouth l daily Estradiol 2 2022-0 Yes 2mg Take 1 Alee ey MG oral 4-17 tablet (2 Seybold Tablet 00:00: mg total) - 00 by mouth Externa daily l Progesteron 2022-0 Yes 200mg Take 1 Tyrone sey e 200 MG 4-17 capsule Seybold oral 00:00: (200 mg - Capsule 00 total) by Externa mouth l daily Estradiol 2 2022-0 Yes 2mg Take 1 Alee ey MG oral 4-17 tablet (2 Seybold Tablet 00:00: mg total) - 00 by mouth Externa daily l Progesteron 0 Yes 200mg Take 1 Tyrone sey e 200 MG 4-17 capsule Seybold oral 00:00: (200 mg - Capsule 00 total) by Externa mouth l daily Estradiol 2 2022-0 Yes 2mg Take 1 Alee ey MG oral 4-17 tablet (2 Seybold Tablet 00:00: mg total) - 00 by mouth Externa daily l Progesteron 2022-0 Yes 200mg Take 1 Tyrone sey e 200 MG 4-17 capsule Seybold oral 00:00: (200 mg - Capsule 00 total) by Externa mouth l daily Estradiol 2 2022-0 Yes 2mg Take 1 Alee ey MG oral 4-17 tablet (2 Seybold Tablet 00:00: mg total) - 00 by mouth Externa daily l Cyclobenzap 2022- No 10mg Take 1 Tyrone sey rine HCl 10 -17 06- tablet (10 S eybold MG oral 00:00: 00:00 mg total) - Tablet 00 :00 by mouth 3 Externa times l daily Doxycycline No 100mg Twice A CH RISTU Monohydrate 3-22 Day S (Doxycyclin 14:59: Health e) 100 Mg 00 CAPSULE Metronidazo 0 No 500mg Twice A CH RISTU le [...] 2020-0 No 1 As TREVER U isolone -16 Directed S (Medrol 04:01: Health Pack) 21 00 Tab/Dspk TAB Methylpredn 2020-0 No 1 As TREVER U isolone 16 Directed S (Medrol 04:01: Health Pack) 21 00 Tab/Dspk TAB Cefuroxime 2020-0 No 500mg Twice A CHR ISTU Axetil 16 Day S (Ceftin) 04:01: Health 500 Mg TAB 00 Meloxicam 0 No 15mg Daily as CHRI TOLU (Mobic) 15 -16 needed for S Mg TAB 04:01: Pain Health 00 Methylpredn 2020-0 No 1 As TREVER U isolone 16 Directed S (Medrol 04:01: Health Dose-Pack) 00 21 Tab/Dspk TAB Meloxicam 2020-0 2020- No 15mg Daily as CHR ISTU (Mobic) 15 1-16 02-16 needed for S Mg TAB 04:01: 00:00 Pain Health 00 :00 Meloxicam 2020-0 2020- No 15mg Daily as CHR ISTU (Mobic) 15 -16 02-16 needed for S Mg TAB 04:01: 00:00 Pain Health 00 :00 Cefuroxime 2020-0 1- No 500mg Twice A CH RISTU Axetil 16 11-15 Day S (Ceftin) 04:01: 00:00 Health 500 Mg TAB 00 :00 Cefuroxime 2020-0 2020- No 500mg Twice A CH RISTU Axetil 16 11-15 Day S (Ceftin) 04:01: 00:00 Health 500 [...] Oph Oint) 00 3.5 Gm OINT..GM. Meclizine 2019- No 25mg Three CHRISTU Hcl 0-02 Times A S (Antivert) 11:23: Day as Healt h 25 Mg TAB 00 needed for Dizziness Azithromyci 2019-1 No 1 As TREVER U n 0-02 Directed S 11:23: Health 00 Gentamicin 2019- No 1 Three TREVER U Sulfate 0-02 Times A S 11:23: Day Health 00 Meclizine 2019- No 25mg Three CHRISTU Hcl 0-02 Times A S 11:23: Day as Health 00 needed for Dizziness Gentamicin 2019- No 1 Three TREVER U Sulfate 0-02 Times A S (Garamycin 11:23: Day Health Oph Oint) 00 3.5 Gm OINT..GM. Meclizine 2018- No 25mg Three CHRISTU Hcl 0-02 Times A S (Antivert) 11:23: Day as Healt h 25 Mg TAB 00 needed for Dizziness Azithromyci 2018-10 2019- No 1 As CYRIL mullins 0-02 11- Directed S (Zithromax 11:23: 00:00 Health Z-James) 6 00 :00 Tab/Pkg TAB Azithromyci 2018-10 2019- No 1 As CYRIL LEMOS n 0-02 - Directed S (Zithromax 11:23: 00:00 Health Z-James) 6 00 :00 Tab/Pkg TAB Azithromyci 2018-10 2019- No 1 As CYRIL LEMOS n 0-02 - Directed S (Zithromax 11:23: 00:00 Health Z-James) 6 00 :00 Tab/Pkg TAB Acetaminoph 2017- 2019- No 1 Every 6 CH RISTU en/Codeine 5-26 10-02 Hours S Phosphate 13:50: 00:00 Health (Tylenol 00 :00 #3) 1 Tab TAB Acetaminoph 2017- 2019- No 1 Every 6 CH RISTU en/Codeine 5-26 10-02 Hours S Phosphate 13:50: 00:00 Health (Tylenol 00 :00 #3) 1 Tab TAB Acetaminoph 2017- 2019- No 1 Every 6 CH RISTU [...] 50mg Every 6 CYRIL TU Hcl 10-22 Hours as S (Ultram) 50 14:00: 00:00 needed for Health Mg TAB 00 :00 Pain Tramadol 2013-10- No 50mg Every 6 CYRIL TU Hcl 10-22 Hours as S (Ultram) 50 14:00: 00:00 needed for Health Mg TAB 00 :00 Pain Tramadol 2013-10- No 50mg Every 6 CYRIL TU Hcl 10-22 Hours as S (Ultram) 50 14:00: 00:00 needed for Health Mg TAB 00 :00 Pain Nitrofurant 2013-10- No 100mg Twice A C HRISTU oin 10-2215 Day S Macrocrysta 14:00: 00:00 Healt h ls 00 :00 (Macrobid) 100 Mg CAP Nitrofurant 2013-10- No 100mg Twice A C HRISTU oin 10-22 1115 Day S Macrocrysta 14:00: 00:00 Healt h ls 00 :00 (Macrobid) 100 Mg CAP Nitrofurant 2013-10- No 100mg Twice A C HRISTU oin 10-22 1115 Day S Macrocrysta 14:00: 00:00 Healt h ls 00 :00 (Macrobid) 100 Mg CAP Acetaminoph No 1 Three CHRISTU en/Hydrocod Times A S one [facility] ) 1 Tab TAB Cyclobenzap No 10mg [...] Times A S one [facility] ) 1 Tab TAB Cyclobenzap No 10mg [...] Times A S one [facility] Cyclobenzap No 10mg Bedtime rine Hcl S Health Estradiol No 1mg Bedtime CHRISTU S Health Gabapentin No 600mg Twice A Day S Health Lorazepam No 1mg Bedtime CH[facility] S Health Venlafaxine No 75mg Daily CH[facility]U Hcl S Health Acetaminoph No 1 Three CHRISTU en/Hydrocod Times A S one [facility] ([place] ) 1 Tab TAB Cyclobenzap No 10mg Bedtime rine Hcl S (Flexeril) Health 10 Mg TAB Estradiol No 1mg Bedtime CHRISTU (Estrace) 1 S Mg TAB Health Gabapentin No 600mg Twice A CYRIL TU (Neurontin) Day S 600 Mg TAB Health Lorazepam No 1mg Bedtime CHRISTU (Ativan) 1 S Mg TAB Health Venlafaxine No 75mg Daily CHRISTU Hcl S (Effexor Health Xr) 75 Mg CAPCR Esomeprazol 2019- No 40mg Bedtime CHRI TOLU e Magnesium 10-02 S (Nexium) 40 00:00 Health Mg CAPCR :00 Gabapentin 2019- No 300mg Twice A CHRI TOLU (Neurontin) 10 Day S 300 Mg CAP 00:00 Health :00 Esomeprazol 2019- No 40mg Bedtime CHRI TOLU e Magnesium 10-02 S (Nexium) 40 00:00 Health Mg CAPCR :00 Gabapentin 2019- No 300mg Twice A CHRI TOLU (Neurontin) 07-21 Day S 300 Mg CAP 00:00 Health :00 Esomeprazol 2019- No 40mg Bedtime CHRI TOLU e Magnesium 10-02 S (Nexium) 40 00:00 Health Mg CAPCR :00 Gabapentin 2019- No 300mg Twice A CHRI TOLU (Neurontin) 07-21 Day S 300 Mg CAP 00:00 Health :00 Cyclobenzap 2015- No 10mg Twice A CHRI TOLU rine Hcl - Day S (Flexeril) 00:00 Health 10 Mg TAB :00 Gabapentin 2015- No 300mg Three TREVER U (Neurontin) 03-19 Times A S 300 Mg CAP 00:00 Day Health :00 Lorazepam 2015- No .5mg Twice A TREVER U (Ativan) 01-05 Day S 0.5 Mg TAB 00:00 Health :00 Omeprazole 2015- No 40mg Bedtime CYRIL (Prilosec) 01-05 S 40 Mg CPDR 00:00 Health :00 Cyclobenzap 2015- No 10mg Twice A CHRI TOLU rine Hcl - Day S (Flexeril) 00:00 Health 10 Mg TAB :00 Gabapentin 2015- No 300mg Three TREVER U (Neurontin) 03-19 Times A S 300 Mg CAP 00:00 Day Health :00 Lorazepam 2015- No .5mg Twice A TREVER U (Ativan) 01-05 Day S 0.5 Mg TAB 00:00 Health :00 Omeprazole 2014- No 40mg Bedtime CYRIL LEMOS (Prilosec) 01-05 S 40 Mg CPDR 00:00 Health :00 Cyclobenzap 2014- No 10mg Twice A CHRI TOLU rine Hcl 01-05 Day S (Flexeril) 00:00 Health 10 Mg TAB :00 Gabapentin 2014- No 300mg Three TREVER U (Neurontin) - Times A S 300 Mg CAP 00:00 Day Health :00 Lorazepam 2015- No .5mg Twice A TREVER U (Ativan) 01-05 Day S 0.5 Mg TAB 00:00 Health :00 Omeprazole 2014- No 40mg Bedtime CYRIL LEMOS (Prilosec) 01-05 S 40 Mg CPDR 00:00 Health :00 Miscellaneo 2014- No 0 Xx For [facility] 11-15 Order Sets S Information 00:00 Health (No Home :00 Meds) [facility] Miscellaneo 2014- No 0 Xx For [facility] 11-15 Order Sets S Information 00:00 Health (No Home :00 Meds) [facility] Miscellaneo 2014- No 0 Xx For [facility] 11-15 Order Sets S Information 00:00 Health (No Home :00 Meds) [facility] Immunizations Ordered Immunization Filled Immunization Date Status Commen ts Source Name Name Pneumococcal 2023-04-17 Completed Tram Finley ld Conjugate 15 00:00:00 - External (Vaxneuvance) Tdap- (Boostrix, 2023-04-17 Completed Tram ahn Adacel) 00:00:00 - External Pneumococcal 2023-04-17 Completed Tram Finley ld Conjugate 15 00:00:00 - External (Vaxneuvance) Tdap- (Boostrix, 2023-04-17 Completed Tram ahn Adacel) 00:00:00 - External Pneumococcal 2023-04-17 Completed Tram Finley ld Conjugate 15 00:00:00 - External (Vaxneuvance) Tdap- (Boostrix, 2023-04-17 Completed Tram chengbopritesh Adacel) 00:00:00 - External Pneumococcal 2023-04-17 Completed Tram Finley ld Conjugate 15 00:00:00 - External (Vaxneuvance) Tdap- (Boostrix, 2023-04-17 Completed Tram Jefferson eybold Adacel) 00:00:00 - External Vital Signs Vital Name Observation Time Observation Value Comments Source Body height 2023-04-30 20:30:00 162.6 cm Tram chengbold - External Body weight 2023-04-30 20:30:00 74.844 kg Tram Jefferson eybold - External BMI 2023-04-30 20:30:00 28.32 kg/m2 Tram chengbold - External Systolic blood 2023-04-17 19:32:00 107 mm[Hg] Tram Taiybold - pressure External Diastolic blood 2023-04-17 19:32:00 69 mm[Hg] Danial khan Seybold - pressure External Heart rate 2023-04-17 19:32:00 87 /min Tram chengbold - External Body temperature 2023-04-17 19:32:00 36.61 Kelli Alee cheng Seybold - External Respiratory rate 2023-04-17 19:32:00 14 /min Alee cheng Seybold - External Body height 2023-04-17 19:32:00 162.6 cm Tram chengbold - External Body weight 2023-04-17 19:32:00 76.204 kg Tram chengbold - External BMI 2023-04-17 19:32:00 28.84 kg/m2 Tram chengbold - External Oxygen saturation in 2023-04-17 19:32:00 99 /min Tram Tiwari - Arterial blood by External Pulse oximetry Systolic blood 2023-03-20 20:29:00 122 mm[Hg] Tram Taiybold - pressure External Diastolic blood 2023-03-20 20:29:00 73 mm[Hg] Tyronese y Seybold - pressure External Heart rate 2023-03-20 20:29:00 93 /min Tram Jefferson eybold - External Body temperature 2023-03-20 20:29:00 36.61 Kelli Alee ey Seybold - External Respiratory rate 2023-03-20 20:29:00 19 /min Alee cheng Seybold - External Body height 2023-03-20 20:29:00 162.6 cm Tram ahn - External Body weight 2023-03-20 20:29:00 75.297 kg Tram ahn - External BMI 2023-03-20 20:29:00 28.49 kg/m2 Tram ahn - External Oxygen saturation in 2023-03-20 20:29:00 [...] Health Body Temperature 2020-11-04 03:37:00 98.5 [degF] [email or web address] Body Temperature 2019-07-21 12:00:00 98.4 [degF] [employer] Heart Rate 2019-07-21 12:00:00 84 /min [facility] [employer] Respiratory rate 2019-07-21 12:00:00 18 /min [email or web address] BP Systolic 2019-07-21 12:00:00 95 mm[Hg] MD [employer] BP Diastolic 2019-07-21 12:00:00 52 mm[Hg] MD [employer] Heart Rate 2019-07-21 11:41:00 84 /min MD [employer] Respiratory rate 2019-07-21 11:41:00 18 /min [email or web address] BP Systolic 2019-07-21 11:41:00 95 mm[Hg] MD [employer] BP Diastolic 2019-07-21 11:41:00 52 mm[Hg] MD [employer] Weight 2019-07-21 10:06:00 165 [lb_av] MD [employer] BMI (Body Mass Index) 2019-07-21 10:06:00 28.3 kg/m2 [facility] Procedure Date / Time Performed Performing Clinician Sour e X-ray of foot, three or 2021-07-25 00:00:00 [email or web address] more views Encounters Start End Encounter Admission Attending Care Care Encounter Source Date/Time Date/Time Type Type Clinicians Facility Department ID 2021-01-08 Inpatient TERRIE BROOKE [id number] 09:00:[address] 2023-08-06 2023-08-06 Outpatient TRAM WARREN [id number] Tr[address] 10:00:00 10:00:00 MAEVE Seybol d 2023-07-18 2023-07-18 Outpatient TRAM OVERTON [id number] Tram 16:00:00 16:00:00 JUANITA Seybol d 2023-07-15 2023-07-15 Outpatient DEMARCO HUFFMAN [id number] Tram 14:45:00 14:45:00 Seybol d 2023-07-04 2023-07-04 Outpatient ANTONIETTA BENAVIDEZ [id number] Tarm 11:00:00 11:00:00 Seybol d 2023-06-11 2023-06-11 Outpatient GALLEGOSTRAM [id number] Tram 14:00:00 14:00:00 ORQUIDEA Seybol d 2023-06-05 2023-06-05 Outpatient PREZARonny, TRAM SALGADO [id number] Tram 00:00:00 00:00:00 JUANITA Seybol d 2023-06-05 2023-06-05 Outpatient PREZAS, TRAM SALGADO [id number] Tram 00:00:00 00:00:00 JUANITA Seybol d 2023-06-04 2023-06-04 Outpatient PREZAS, TRAM SALGADO [id number] Tram 00:00:00 00:00:00 JUANITA Seybol d 2023-06-03 2023-06-03 Outpatient ANSOANUUTRAM Alex [id number] Tram 15:45:00 15:45:00 MAEVE Seybol d 2023-06-03 2023-06-03 Outpatient ANSOAPARISH, TRAM SALGADO [id number] Tram 00:00:00 00:00:00 MAEVE Seybol d 2023-05-27 2023-05-27 Outpatient PREZATRAM Jefferson [id number] Tram 00:00:00 00:00:00 JUANITA Seybol d 2023-05-23 2023-05-23 Outpatient TRAM SALGADO [id number] Tram 15:45:00 15:45:00 Seybol d 2023-05-23 2023-05-23 Outpatient ANSOATRAM LUGO [id number] Tram 00:00:00 00:00:00 MAEVE Seybol d 2023-05-23 2023-05-23 Outpatient PREZASTRAM [id number] Tram 00:00:00 00:00:00 JUANITA Seybol d 2023-05-23 2023-05-23 Outpatient ANSOATRAM LUGO [id number] Tram 00:00:00 00:00:00 MAEVE Seybol d 2023-05-22 2023-05-22 Outpatient PRETRAM DALEY [id number] Tram 00:00:00 00:00:00 JUANITA Seybol d 2023-05-19 2023-05-19 Outpatient PREZAS, TRAM SALGADO [id number] Tram 00:00:00 00:00:00 JUANITA Seybol d 2023-05-13 2023-05-13 Outpatient ANSOANUUR, TRAM SALGADO [id number] Tram 00:00:00 00:00:00 MAEVE Seybol d 2023-05-12 2023-05-12 Outpatient PREZAS, TRAM SALGADO [id number] Tram 00:00:00 00:00:00 JUANITA Seybol d 2023-05-09 2023-05-09 Outpatient PREZAS, TRAM SALGADO [id number] Tram 00:00:00 00:00:00 JUANITA Seybol d 2023-05-09 2023-05-09 Outpatient SACNATHALY, TRAM SALGADO [id number] Tram 00:00:00 00:00:00 HARRIET Seybol d 2023-05-08 2023-05-08 Outpatient ANSOANUUR, TRAM SALGADO [id number] Tram 16:45:00 16:45:00 MAEVE Seybol d 2023-05-07 2023-05-07 Outpatient ANSOANUUR, TRAM SALGADO [id number] Tram 00:00:00 00:00:00 MAEVE Seybol d 2023-05-06 2023-05-06 Outpatient PREZASTRAM [id number] Tram 00:00:00 00:00:00 JUANITA Seybol d 2023-05-05 2023-05-05 Outpatient ANSOANUUR, TRAM SALGADO [id number] Tram 00:00:00 00:00:00 MAEVE Seybol d 2023-05-01 2023-05-01 Outpatient TRED91 TRAM SALGADO [id number] Tram 08:00:00 08:00:00 Seybol d 2023-05-01 2023-05-01 Outpatient ANSOANUUR, TRAM SALGADO [id number] Tram 00:00:00 00:00:00 MAEVE Seybol d 2023-04-30 2023-04-30 Outpatient LAB91 TRAM TRAM [id number] Tram 17:00:00 17:00:00 Seybol d 2023-04-30 2023-04-30 Outpatient TRAM TRAM [id number] Tram 16:20:00 16:20:00 Seybol d 2023-04-30 2023-04-30 Outpatient TRED91 TRAM SALGADO [id number] Tram 16:15:00 16:15:00 Seybol d 2023-04-30 2023-04-30 Outpatient ANSOANUUIsai TRMA SALGADO [id number] Tram 16:15:00 16:15:00 MAEVE Seybol d 2023-04-25 2023-04-25 Outpatient EFRENTRAMJENNIFER TRAM SALGADO [id number] Tram 00:00:00 00:00:00 MD STEPHANE Seybol d 2023-04-25 2023-04-25 Outpatient TRAM OVERTON [id number] Tram 00:00:00 00:00:00 JUANITA Seybol d 2023-04-21 2023-04-21 Outpatient TRAM OVERTON [id number] Tram 00:00:00 00:00:00 JUANITA Seybol d 2023-04-17 2023-04-17 Outpatient TRAM OVERTON [id number] Tram 15:00:00 15:00:00 JUANITA Seybol d 2023-04-16 2023-04-16 Outpatient LAB90 TRAM SALGADO [id number] Tram 08:45:00 08:45:00 Seybol d 2023-04-15 2023-04-15 Outpatient EFRENTYRONEDEE DEE TRAM SALGADO [id number] Tram 00:00:00 00:00:00 MD STEPHANE Seybol d 2023-04-11 2023-04-11 Outpatient TRAM OVERTON [id number] Tram 00:00:00 00:00:00 JUANITA Seybol d 2023-04-10 2023-04-10 Outpatient TRAM OVERTON [id number] Tram 00:00:00 00:00:00 JUANITA Seybol d 2023-03-31 2023-03-31 Outpatient ELIANA TRAM SALGADO [id number] Tram 00:00:00 00:00:00 MD Zaire CALDERÓNybol brigida 2023-03-30 2023-03-30 Outpatient TIAN TRAM SALGADO [id number] Tram 00:00:00 00:00:00 JUANITA Seybol d 2023-03-20 2023-03-20 Outpatient KEVINRonny TRAM SALGADO [id number] Tram 15:30:00 15:30:00 JUANITA Seybol d 2022-09-22 2022-09-22 Emergency ER SANJIV TREVER TERRIE [id number] [facility] 17:29:00 22:00:00 YULIANA [id number] [facility] 2021-07-25 2021-07-25 Departed ER MARTINA TERRIE FALCON [id number] [facility] 18:43:00 20:30:00 Emergency MICHELLE [address] [facility] 2021-01-08 2021-01-[address] [facility] EA07 [id number] [facility] 15:00:00 16:42:00 Emergency [facility] [address] [facility] 2020-11-04 2020-11-04 Departed LENCHO TREVER TERRIE [id number] [facility] 03:37:00 05:22:00 Emergency ESTES [address] [facility] 2019-07-21 2019-07-[address] [facility] EA07 [id number] [facility] 10:49:00 11:48:00 Emergency [facility] Results Test Description Test Time Test Comments Results Result Comments Source Urine color determination 2021-01-08 14:41:00 Test Item Value Reference Range Interpretation Comme nts Urine Color (test code = 5778-6) YELLOW STR/YELLOW [facility] appearance [id number] 14:41:00 Test Item Value Reference Range Interpretation Comments Urine Appearance (test code = 5767-9) CLEAR CLEAR [facility] pH measurement by test [id number] 14:41:00 Test Item Value Reference Range Interpretation Comments Urine pH (test code = 5803-2) 7.0 5.0-8.0 [facility] of Urine by Test [id number] 14:41:00 Test Item Value Reference Range Interpretation Comments Urine Specific [place] (test code = 1.010 1.005-1.030 5811-5) [facility] protein measurement by automated test strip (mass/volume) 2021-01-08 14:41:00 Test Item Value Reference Range Interpretation Comments Urine Protein (test code = 88350-9) NEGATIVE NEGATIVE [facility] glucose measurement by automated test strip (mass/volume) 2021-01-08 14:41:00 Test Item Value Reference Range Interpretation Comments Urine Glucose (UA) (test code = NEGATIVE NEGATIVE 15202-2) [facility] ketones measurement by test strip (mass/volume)2021-01-08 14:41:00 Test Item Value Reference Range Interpretation Comments Urine Ketones (test code = 5797-6) NEGATIVE NEGATIVE [facility] erythrocytes count by automated test strip (number/volume) 2021-01-08 14:41:00 Test Item Value Reference Range Interpretation Comments Urine Occult Blood (test code = NEGATIVE NEGATIVE 27871-1) [facility] nitrite detection by automated test [id number] 14:41:00 Test Item Value Reference Range Interpretation Comments Urine Nitrite (test code = 66263-4) NEGATIVE NEGATIVE [facility] total bilirubin detection by test [id number] 14:41:00 Test Item Value Reference Range Interpretation Comments Urine Bilirubin (test code = 5770-3) NEGATIVE NEGATIVE [facility] urobilinogen measurement by automated test strip (mass/volume)2021-01-08 14:41:00 Test Item Value Reference Range Interpretation Comments Urine Urobilinogen (test code = 0.2 0.2-1.0 60728-4) [facility] leukocyte esterase detection by automated test strip 2021-01-08 14:41:00 Test Item Value Reference Range Interpretation Comments Urine Leukocyte Esterase (test code NEGATIVE NEGATIVE = 18421-8) [facility] comment 14:41:00 Test Item Value Reference Range Interpretation Comments Urine Culture Indicated (test code = YES 8265-1) [facility] comment 14:41:00 Test Item Value Reference Range Interpretation Comments Urine Culture Reflexed NO,C&S NOT INDICATED (test code = 8266-9) [facility] specimen collection [id number] 14:41:00 Test Item Value Reference Range Interpretation Comments Urine Collection Type (test code = VOIDED 73811-3) [facility] beta-human chorionic gonadotropin (BhCG) detection 2021-01-08 14:41:00 Test Item Value Reference Range Interpretation Comments Urine Test (test code = NEGATIVE NEGATIVE 2-1) [facility] color [id number] 03:50:00 Test Item Value Reference Range Interpretation Comments Urine Color (test code = 5778-6) YELLOW STR/YELLOW [facility] urine appearance [id number] 03:50:00 Test Item Value Reference Range Interpretation Comments Urine Appearance (test code = 5767-9) CLEAR CLEAR [facility] pH measurement by test [id number] 03:50:00 Test Item Value Reference Range Interpretation Comments Urine pH (test code = 5803-2) 8.0 5.0-8.0 [facility] gravity of Urine by Test [id number] 03:50:00 Test Item Value Reference Range Interpretation Comments Urine Specific [place] (test code = 1.010 1.005-1.030 5811-5) [facility] protein measurement by automated test strip (mass/volume) 2020-11-04 03:50:00 Test Item Value Reference Range Interpretation Comments Urine Protein (test code = 56084-3) NEGATIVE NEGATIVE [facility] glucose measurement by automated test strip (mass/volume) 2020-11-04 03:50:00 Test Item Value Reference Range Interpretation Comments Urine Glucose (UA) (test code = NEGATIVE NEGATIVE 78194-4) [facility] ketones measurement by test strip (mass/volume)2020-11-04 03:50:00 Test Item Value Reference Range Interpretation Comments Urine Ketones (test code = 5797-6) NEGATIVE NEGATIVE [facility] erythrocytes count by automated test strip (number/volume) 2020-11-04 03:50:00 Test Item Value Reference Range Interpretation Comments Urine Occult Blood (test code = NEGATIVE NEGATIVE 68526-0) [facility] nitrite detection by automated test [id number] 03:50:00 Test Item Value Reference Range Interpretation Comments Urine Nitrite (test code = 24953-9) NEGATIVE NEGATIVE [facility] total bilirubin detection by test [id number] 03:50:00 Test Item Value Reference Range Interpretation Comments Urine Bilirubin (test code = 5770-3) NEGATIVE NEGATIVE [facility] urobilinogen measurement by automated test strip (mass/volume)2020-11-04 03:50:00 Test Item Value Reference Range Interpretation Comments Urine Urobilinogen (test code = 0.2 0.2-1.0 49026-7) [facility] leukocyte esterase detection by automated test strip 2020-11-04 03:50:00 Test Item Value Reference Range Interpretation Comments Urine Leukocyte Esterase (test code NEGATIVE NEGATIVE = 24270-4) [facility]00 Test Item Value Reference Range Interpretation Comments Urine Culture Indicated (test code = YES 8265-1) [facility] 03:50:00 Test Item Value Reference Range Interpretation Comments Urine Culture Reflexed NO,C&S NOT INDICATED (test code = 8266-9) [facility] [id number] 03:50:00 Test Item Value Reference Range Interpretation Comments Urine Collection Type (test code = VOIDED 28705-8) [facility] beta-human chorionic gonadotropin (BhCG) detection 2020-11-04 03:50:00 Test Item Value Reference Range Interpretation Comments Urine Test (test code = NEGATIVE NEGATIVE 2-1) [facility] Notes Date/Time Note Provider Source 2023-04-30 Formatting of this note is different fro m the original. Flo Carcamo 15:30:34-00:00 Yue Lange a 42 year o ld female with a past medical history of Clinic Past Medical History: Diagnosis Date Bipolar 1 disorder (HCC) Cervical radiculopathy Chronic back pain Chronic constipation Chronic idiopathic thrombocytopenic purpura (HCC) Fibromyalgia Herpes genitalis in women Hiatal hernia with GERD History of PCOS Scoliosis Surgical menopause on hormone replacement therapy who presents to clinic with Pain (Patient states to have pain in her lower back) . her pain is localized to Lumbar Spine. her pain started 5years ago. The pain has progressively gotten Worse There was an Inciting event of surgery. The pain is described as sharp , burning and dull. There is radiation to the bu ttocks and both legs to her calves. The pain occurs constantly . The pain is aggravated by bending and standing. The pain is alleviated by rest. At its worst the pain is rate d as a 10 out of 10, at its best the pain is rated as a 4 out of 10 and on average the pain is rated as a 7 out of 10. So far the patient has tried nothing. Current medications include Acetaminophen-Cod eine 2x's day and Gabapentin 3x's a day both for 1 moth These medications can take their worst pain rating down to a 2 out of 10. Patient denies bowel or bladder incontinence. Patient denies weakness. Electronically signed by Flo Hernandez MA I a t 04/30/2023 3:38 PM CDT
[2023-06-05 16:16] LABS: Specific Gravity > 1.030 (1.005-1.030)
[2023-06-05 16:17] LABS: Specific Gravity > 1.030 (1.005-1.030); Urine Bacteria <20 /HPF (<20); Urine Bilirubin NEGATIVE (Negative); Urine Blood Negative (Negative); Urine Clarity Clear (Clear); Urine Color Yellow (Yellow); Urine Glucose NEGATIVE (Negative); Urine Mucus Slight /HPF (None Seen); Urine Protein TRACE (Negative); Urine Urobilinogen Normal (Normal)
[2023-06-05] MEDS ORDERED: BISACODYL 10 MG RECTAL SUPP ONE (16:20)
[2023-06-05] MEDS ORDERED: ONDANSETRON 4 MG/2 ML VIAL ONE (16:20)
[2023-06-05] MEDS ORDERED: NA CHLORIDE 0.9% 1,000 ML ONE ×2 (16:21→17:31)
[2023-06-05] MEDS ORDERED: LACTULOSE 20 GM/30 ML UCUP ONE ×2 (16:21→17:31)
[2023-06-05 16:27] LABS: Absolute Lymphocytes (CBC) 6.1 K/uL (0.7-4.9); Hematocrit 39.2 % (36.0-45.0); Lymphocytes % 44.3 % (15.3-44.8); MCV 92.5 fL (80-100); MPV 8.1 fL (7.6-11.3); Platelets 318 thou/uL (152-406); RBC Red Blood Cell Count 4.24 M/uL (3.86-4.86)
[2023-06-05 16:30] LABS: Albumin 3.7 g/dL (3.4-5.0); Bilirubin Total 0.2 mg/dL (0.2-1.0); Potassium 3.4 mEq/L (3.5-5.1); Protein, Total 7.4 g/dL (6.4-8.2)
[2023-06-05] MEDS ORDERED: NA CHLORIDE 0.9% 500 ML ONE (17:31)
--- NOTE | 2023-06-05 17:57 | EDPHYS ---
Physician Documentation [facility] Name: Lilliam Leahy Age: 42 yrs Sex: Female : 1980 Arrival Date: 06/05/2023 Time: 15:40 Bed 8 Private MD: NINA Physician Drake Guajardo HPI: 06/05 16:44 This 42 yrs old Female presents to ER via Ambulatory with complaints of josep Constipation. 16:44 The patient presents with abdominal pain in the upper abdomen, in the lower abdomen, josep abdominal distention in the upper abdomen, in the lower abdomen. Onset: The symptoms/episode began/occurred 14 day(s) ago. The symptoms radiate to. Associated signs and symptoms: Pertinent positives: constipation. The symptoms are described as constant, crampy. Modifying factors: The symptoms are alleviated by nothing, the symptoms are aggravated by nothing. Severity of pain: At its worst the pain was mild moderate in the emergency department the pain is unchanged. The patient has not experienced similar symptoms in the past, The patient has experienced similar episodes in the past, multiple times. Historical: - Allergies: 15:48 PENICILLINS; cm10 - PMHx: 15:48 Fibromyalgia; Hypercholesterolemia; scoliosis; cm10 - PSHx: 15:48 back sx; hysterectomy; Tonsillectomy; Total abdominal hysterectomy; cm10 - Immunization history:: Adult Immunizations unknown. - Social history:: Smoking status: Patient reports the use of cigarette tobacco products, smokes one pack cigarettes per day. - Family history:: not pertinent. ROS: 16:45 Constitutional: Negative for fever, chills, and weight loss, Eyes: Negative for injury, josep pain, redness, and discharge, ENT: Negative for injury, pain, and discharge, Neck: Negative for injury, pain, and swelling, Cardiovascular: Negative for chest pain, palpitations, and edema, Respiratory: Negative for shortness of breath, cough, wheezing, and pleuritic chest pain, Back: Negative for injury and pain, : Negative for injury, bleeding, discharge, and swelling, MS/Extremity: Negative for injury and deformity, Skin: Negative for injury, rash, and discoloration, Neuro: Negative for headache, weakness, numbness, tingling, and seizure, Psych: Negative for depression, anxiety, suicide ideation, homicidal ideation, and hallucinations, Allergy/Immunology: Negative for hives, rash, and allergies, Endocrine: Negative for neck swelling, polydipsia, polyuria, polyphagia, and marked weight changes, Hematologic/Lymphatic: Negative for swollen nodes, abnormal bleeding, and unusual bruising. 16:45 Abdomen/GI: Positive for constipation, abdominal cramps. Exam: 16:45 Constitutional: This is a well developed, well nourished patient who is awake, alert, josep and in no acute distress. Head/Face: Normocephalic, atraumatic. Eyes: Pupils equal round and reactive to light, extra-ocular motions intact. Lids and lashes normal. Conjunctiva and sclera are non-icteric and not injected. Cornea within normal limits. Periorbital areas with no swelling, redness, or edema. ENT: Nares patent. No nasal discharge, no septal abnormalities noted. Tympanic membranes are normal and external auditory canals are clear. Oropharynx with no redness, swelling, or masses, exudates, or evidence of obstruction, uvula midline. Mucous membranes moist. Neck: Trachea midline, no thyromegaly or masses palpated, and no cervical lymphadenopathy. Supple, full range of motion without nuchal rigidity, or vertebral point tenderness. No Meningismus. Chest/axilla: Normal chest wall appearance and motion. Nontender with no deformity. No lesions are appreciated. Cardiovascular: Regular rate and rhythm with a normal S1 and S2. No gallops, murmurs, or rubs. Normal PMI, no JVD. No pulse deficits. Respiratory: Lungs have equal breath sounds bilaterally, clear to auscultation and percussion. No rales, rhonchi or wheezes noted. No increased work of breathing, no retractions or nasal flaring. Abdomen/GI: Soft, non-tender, with normal bowel sounds. No distension or tympany. No guarding or rebound. No evidence of tenderness throughout. Back: No spinal tenderness. No costovertebral tenderness. Full range of motion. Skin: Warm, dry with normal turgor. Normal color with no rashes, no lesions, and no evidence of cellulitis. MS/ Extremity: Pulses equal, no cyanosis. Neurovascular intact. Full, normal range of motion. Neuro: Awake and alert, GCS 15, oriented to person, place, time, and situation. Cranial nerves II-XII grossly intact. Motor strength 5/5 in all extremities. Sensory grossly intact. Cerebellar exam normal. Normal gait. Psych: Awake, alert, with orientation to person, place and time. Behavior, mood, and affect are within normal limits. Vital Signs: 15:46 BP 138 / 85; Pulse 87; Resp 16; Temp 98.3(O); Pulse Ox 100% ; Weight 74.84 kg; Height 5 cm10 ft. 4 in. ; Pain 6/10; 17:26 BP 143 / 81; Pulse 73; Pulse Ox 100% ; ap3 18:36 BP 135 / 92; Pulse 78; Pulse Ox 100% ; ap3 19:08 BP 104 / 70; Pulse 90; Resp 18 S; Pulse Ox 98% on R/A; as6 15:46 Body Mass Index 28.32 (74.84 kg, 162.56 cm) cm10 15:46 Pain Scale: Adult cm10 MDM: 16:02 Patient medically screened. [facility] 16:46 Differential diagnosis: bowel obstruction, non-specific abd pain. Data reviewed: vital josep signs, nurses notes, lab test result(s), radiologic studies, CT scan. Consideration of Admission/Observation Escalation of care including admission/observation considered. Management of patient was discussed with the following:. I considered the following discharge prescriptions or medication management in the emergency department Medications were administered in the Emergency Department. See MAR. Independent interpretation of the following test(s) in the Emergency Department CT Scan: My interpretation is ct abd/ pelvis. Test considered but Not performed: Ultrasound no abd usg. Care significantly affected by the following chronic conditions: tobacco abuse, scoliosis, high cholesterol, fibromyalgia. 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 06/05 15:45 Order name: CBC with Diff; Complete Time: 16:36 [facility] 06/05 15:45 Order name: CMP; Complete Time: 16:36 [facility] 06/05 15:45 Order name: Lipase; Complete Time: 16:36 [facility] 06/05 15:45 Order name: Test, Urine; Complete Time: 16:36 [facility] 06/05 15:45 Order name: Urinalysis w/ reflexes; Complete Time: 16:36 [facility] 06/05 15:45 Order name: CT Abd/Pelvis - PO and IV Contrast [facility] 06/05 15:45 Order name: IV Saline Lock; Complete Time: 16:02 [facility] 06/05 15:45 Order name: Labs collected and sent; Complete Time: 16:02 [facility] Administered Medications: 16:25 Drug: Dulcolax [place] Suppository 10 mg Route: [place]; ap3 17:25 Follow up: Response: No adverse reaction ap3 16:25 Drug: Lactulose PO 30 grams Volume: 45 ml; Route: PO; ap3 17:25 Follow up: Response: No adverse reaction ap3 16:26 Drug: NS 0.9% IV 1000 ml Route: IV; Rate: 1 bolus; Site: right antecubital; ap3 17:25 Follow up: IV Status: Completed infusion ap3 16:26 Drug: Ondansetron IVP 4 mg Route: IVP; Site: right antecubital; ap3 17:25 Follow up: Response: No adverse reaction; Nausea is decreased ap3 17:25 Drug: NS 0.9% IV 1000 ml Route: IV; Rate: 1 bolus; Site: right antecubital; ap3 19:44 Follow up: Response: No adverse reaction; IV Status: Completed infusion; IV Intake: as6 1000ml 17:27 Drug: Lactulose PO 30 grams Volume: 45 ml; Route: PO; ap3 18:35 Follow up: Response: No adverse reaction ap3 18:11 Drug: Potassium PO Effervescent Tablet 25 mEq Route: PO; ap3 18:35 Follow up: Response: No adverse reaction ap3 18:11 Drug: Ciprofloxacin IVPB 400 mg Volume: 200 ml; Route: IVPB; Infused Over: 60 mins; ap3 Site: right antecubital; 19:44 Follow up: Response: No adverse reaction; IV Status: Completed infusion; IV Intake: as6 200ml 19:08 Drug: metroNIDAZOLE IVPB 500 mg Volume: 100 ml; Route: IVPB; Rate: 200 ml/hr; Infused as6 Over: 30 mins; Site: right antecubital; 19:44 Follow up: Response: No adverse reaction; IV Status: Completed infusion; IV Intake: as6 100ml Disposition Summary: 06/05/23 17:56 Discharge Ordered Location: Home josep Problem: new josep Symptoms: have improved josep Condition: Stable josep Diagnosis - Constipation josep - Abdominal tenderness josep - Tobacco abuse counseling josep - Tobacco use josep - Hypokalemia josep - Elevated white blood cell count josep - Left sided colitis without complications - Proctitis josep Followup: josep - With: Private Physician - When: 2 - 3 days - Reason: Recheck today's complaints, Continuance of care, Re-evaluation by your physician Followup: josep - With: - When: 2 - 3 days - Reason: Recheck today's complaints, Continuance of care, Re-evaluation by your physician Discharge Instructions: - Discharge Summary Sheet josep - Abdominal Pain, Adult josep - Constipation, Adult josep - Potassium Content of Foods josep - Steps to Quit Smoking josep - Constipation, Adult, Djvt-hp-Haex josep - Abdominal Pain, Adult, Ajcg-zf-Dcwi josep - Steps to Quit Smoking, Xvow-ai-Clll josep - Hypokalemia josep - Proctitis josep Forms: - Medication Reconciliation Form [facility] - Thank You Letter [facility] - Antibiotic Education josep - Prescription Opioid Use josep - Patient Portal Instructions [facility] - Leadership Thank You Letter [facility] Prescriptions: - Dulcolax (bisacodyl) 10 mg Rectal suppository - insert 1 suppository by RECTAL route every 12 hours for 5 days; 10 suppository; josep Refills: 0, Product Selection Permitted - Colace 100 mg Oral Tablet - take 1 tablet by ORAL route every 12 hours; 14 tablet; Refills: 0, Product [facility] Selection Permitted - Lactulose 10 gram/15 mL Oral Solution - take 30 milliliters by ORAL route once daily; 300 milliliter; Refills: 0, [facility] Product Selection Permitted - dicyclomine 10 mg/5 mL Oral Solution - take 10 milliliters by ORAL route 4 times per day; 160 milliliter; Refills: 0, [facility] Product Selection Permitted Signatures: Dispatcher [employer] Drake Funes MD MD cha Prokisch, Amanda RN RN ap3 Tani Cade RN RN as6 Ange Medel RN RN cm10
--- NOTE | 2023-06-05 17:57 | RAD REPORT ---
EXAM DESCRIPTION: CTAbdomen Pelvis W Contrast - 06/05/2023 5:45 pm CLINICAL HISTORY: ABD PAIN COMPARISON: Abdomen Pelvis W Contrast dated 02/20/2023 TECHNIQUE: CT of the abdomen and pelvis was performed with IV contrast. All CT scans are performed using dose optimization technique as appropriate and may include automated exposure control or mA/KV adjustment according to patient size. FINDINGS: Lower chest: No acute abnormality. Liver: No acute abnormality or suspicious lesions. Biliary: No biliary ductal dilatation. Stomach: No significant focal abnormality. Duodenum: No significant focal abnormality. Pancreas: No significant abnormality. Spleen: No significant abnormality. Adrenal: No suspicious lesions. Kidney/ureter: No hydronephrosis. Small 2-3 mm bilateral renal calculi. Retroperitoneum: No retroperitoneal adenopathy. Vascular: No aneurysm. Bowel: Moderate stool in the colon. Distal sigmoid and rectal wall thickening is also present.. Radha l appendix. Peritoneum: No ascites or free air. Bladder: Grossly unremarkable. Reproductive: Hysterectomy. Bones: No acute fracture. Other: n/a IMPRESSION: Distal sigmoid rectal wall thickening concerning for a mild proctocolitis. Moderate upst ream colonic stool. No bowel obstruction. Normal appendix.
--- NOTE | 2023-06-05 17:57 | ER ---
Nurse's Notes [facility] Name: Lilliam Leahy Age: 42 yrs Sex: Female : 1980 Arrival Date: 06/05/2023 Time: 15:40 Bed 8 Private MD: Diagnosis: Constipation;Abdominal tenderness;Tobacco abuse counseling;Tobacco use;Hypokalemia;Elevated white blood cell count;Left sided colitis without complications-Proctitis Presentation: 06/05 15:46 Chief complaint: Patient states: "I have not shit in 2 weeks and I feel like I am about cm10 to start throwing up fecal matter." Pt states that she has tried OTC medicine with no relief. Pt states that she has had this issue before. Coronavirus screen: Vaccine status: Patient reports being unvaccinated. Client denies travel out of the [place] in the last 14 days. Ebola Screen: Patient denies travel to an Ebola-affected area in the 21 days before illness onset. No symptoms or risks identified at this time. Initial Sepsis Screen: Does the patient meet any 2 criteria? No. Patient's initial sepsis screen is negative. Does the patient have a suspected source of infection? No. Patient's initial sepsis screen is negative. Risk Assessment: Do you want to hurt yourself or someone else? Patient reports no desire to harm self or others. Onset of symptoms was June 05, 2023. 15:46 Method Of Arrival: Ambulatory cm10 15:46 Acuity: SOFY 3 cm10 Historical: - Allergies: 15:48 PENICILLINS; cm10 - PMHx: 15:48 Fibromyalgia; Hypercholesterolemia; scoliosis; cm10 - PSHx: 15:48 back sx; hysterectomy; Tonsillectomy; Total abdominal hysterectomy; cm10 - Immunization history:: Adult Immunizations unknown. - Social history:: Smoking status: Patient reports the use of cigarette tobacco products, smokes one pack cigarettes per day. - Family history:: not pertinent. Screenin:03 [facility] ED Fall Risk Assessment (Adult) History of falling in the last 3 months, ap3 including since admission No falls in past 3 months (0 pts). Abuse screen: Denies threats or abuse. Nutritional screening: No deficits noted. Tuberculosis screening: No symptoms or risk factors identified. Assessment: 16:03 General: Appears uncomfortable, Behavior is calm, cooperative, appropriate for age. ap3 Pain: Complains of pain in abdomen. Neuro: Level of Consciousness is awake, alert, obeys commands, Oriented to person, place, time, situation. Cardiovascular: Patient's skin is warm and dry. Respiratory: Airway is patent Respiratory effort is even, unlabored, Respiratory pattern is regular, symmetrical. GI: Abdomen is flat, Abd is soft Reports constipation. 17:26 Reassessment: Patient and/or family updated on plan of care and expected duration. Pain ap3 level reassessed. Patient is alert, oriented x 3, equal unlabored respirations, skin warm/dry/pink. patient states she has yet to have a BM. 18:18 General: awaiting infusion on antibiotics prior to discharge. ap3 Vital Signs: 15:46 BP 138 / 85; Pulse 87; Resp 16; Temp 98.3(O); Pulse Ox 100% ; Weight 74.84 kg; Height 5 cm10 ft. 4 in. ; Pain 6/10; 17:26 BP 143 / 81; Pulse 73; Pulse Ox 100% ; ap3 18:36 BP 135 / 92; Pulse 78; Pulse Ox 100% ; ap3 19:08 BP 104 / 70; Pulse 90; Resp 18 S; Pulse Ox 98% on R/A; as6 15:46 Body Mass Index 28.32 (74.84 kg, 162.56 cm) cm10 15:46 Pain Scale: Adult cm10 ED Course: 15:42 Patient arrived in ED. rg4 15:43 Drake Guajardo MD is Attending Physician. josep 15:48 Triage completed. cm10 15:49 Arm band placed on Patient placed in an exam room, on a stretcher. cm10 15:52 Wendy Salmon, VITOR is Primary Nurse. ap3 16:02 Inserted saline lock: 20 gauge in right antecubital area, using aseptic technique. ap3 Blood collected. 16:02 Urinalysis w/ reflexes Sent. ap3 16:02 Test, Urine Sent. ap3 16:02 Lipase Sent. ap3 16:02 CMP Sent. ap3 16:02 CBC with Diff Sent. ap3 16:03 Patient has correct armband on for positive identification. Placed in gown. Bed in low ap3 position. Call light in reach. Side rails up X 1. Pulse ox on. NIBP on. Door closed. Noise minimized. 17:46 CT Abd/Pelvis - PO and IV Contrast In Process Unspecified. EDMS 17:56 Kajal Lea MD is Referral Physician. [facility] 19:44 No provider procedures requiring assistance completed. as6 19:56 Provided Education on: discharge teaching . as6 19:56 IV discontinued, intact, bleeding controlled, No redness/swelling at site. Pressure as6 dressing applied. Administered Medications: 16:25 Drug: Dulcolax MA Suppository 10 mg Route: MA; ap3 17:25 Follow up: Response: No adverse reaction ap3 16:25 Drug: Lactulose PO 30 grams Volume: 45 ml; Route: PO; ap3 17:25 Follow up: Response: No adverse reaction ap3 16:26 Drug: NS 0.9% IV 1000 ml Route: IV; Rate: 1 bolus; Site: right antecubital; ap3 17:25 Follow up: IV Status: Completed infusion ap3 16:26 Drug: Ondansetron IVP 4 mg Route: IVP; Site: right antecubital; ap3 17:25 Follow up: Response: No adverse reaction; Nausea is decreased ap3 17:25 Drug: NS 0.9% IV 1000 ml Route: IV; Rate: 1 bolus; Site: right antecubital; ap3 19:44 Follow up: Response: No adverse reaction; IV Status: Completed infusion; IV Intake: as6 1000ml 17:27 Drug: Lactulose PO 30 grams Volume: 45 ml; Route: PO; ap3 18:35 Follow up: Response: No adverse reaction ap3 18:11 Drug: Potassium PO Effervescent Tablet 25 mEq Route: PO; ap3 18:35 Follow up: Response: No adverse reaction ap3 18:11 Drug: Ciprofloxacin IVPB 400 mg Volume: 200 ml; Route: IVPB; Infused Over: 60 mins; ap3 Site: right antecubital; 19:44 Follow up: Response: No adverse reaction; IV Status: Completed infusion; IV Intake: as6 200ml 19:08 Drug: metroNIDAZOLE IVPB 500 mg Volume: 100 ml; Route: IVPB; Rate: 200 ml/hr; Infused as6 Over: 30 mins; Site: right antecubital; 19:44 Follow up: Response: No adverse reaction; IV Status: Completed infusion; IV Intake: as6 100ml Medication: 16:04 VIS not applicable for this client. ap3 Intake: 19:44 IV: 1000ml; Total: 1000ml. as6 19:44 IV: 200ml; Total: 1200ml. as6 19:44 IV: 100ml; Total: 1300ml. as6 Outcome: 17:56 Discharge ordered by . josep 19:44 Condition: stable as6 19:56 Discharged to home ambulatory, with significant other. as6 19:56 Discharge instructions given to patient, Instructed on discharge instructions, follow up and referral plans. medication usage, Demonstrated understanding of instructions, follow-up care, medications, Prescriptions given X 4. 19:56 Patient left the ED. as6 Signatures: Dispatcher [employer] EDMS Drake Guajardo MD MD cha Garcia, Rubi rg4 Wendy Salmon RN RN ap3 Tani Cade RN RN as6 Ange Medel RN RN cm10
[2023-06-05] MEDS ORDERED: POTASSIUM 25 MEQ EFFERV TAB ONE (18:13)
[2023-06-05] MEDS ORDERED: CIPROFLOXACIN 400mg IV 400 MG/200 ML BAG IV ONE (18:14)
[2023-06-05] MEDS ORDERED: METRONIDAZOLE 500mg IVPB 0 MG/0 ML BAG IV ONE (18:14)
[2023-06-05] MEDS ORDERED: METRONIDAZOLE 500mg IVPB 500 MG/100 ML BAG IV ONE (19:19)
[2023-06-05 20:45] VITALS: TEMP 98.3
[2023-06-05 20:48] VITALS: BP 104/70; O2SAT 98
== END 2023-06-05 19:56 | disposition home or self-care (01) ==
LOC: ER 15:40
DX: K59.00 Constipation, unspecified (principal); F17.210 Nicotine dependence, cigarettes, uncomplicated; Z88.0 Allergy status to penicillin
CPT/HCPCS: 96365; 96361; 85025; 81001; 36415; 81025; 83690; 80053; 74177; 96375; 99284; Q9967; J2405; J0744; J7040; J7030 ×2

== ENCOUNTER 2023-07-03 10:14 | Emergency (ER) | payer OTHER ==
--- OUTSIDE RECORDS SUMMARY | 2023-07-03 10:20 | XMS REPORT | Continuity of Care Document ---
:1980 Author Organization [facility] t Address [address] [place] [address] Care Team Providers Name Role Phone JUANITA OVERTON Primary Care Physician Unavailable WAQAR ALBA APRN Attending Clinician Unavailable ARMIN MEJIA Attending Clinician Unavailable DURAN GALLEGOS Attending Clinician Unavailable MAEVE WARREN Attending Clinician Unavailable JUANITA OVERTON Attending Clinician Unavailable DEMARCO HUFFMAN Attending Clinician Unavailable ROBERTA MCFARLANE Attending Clinician Unavailable ANTONIETTA BENAVIDEZ Attending Clinician Unavailable DEMARIO CARLISLE Attending Clinician Unavailable Jeancarlos Hickey MD Attending Clinician JEANCARLOS HICKEY Attending Clinician Unavailable [id number] Attending Clinician Unavailable REYMUNDO TOLENTINO Attending Clinician Unavailable MD KINA Attending Clinician Unavailable HARRIET GRANT Attending Clinician Unavailable TRED91 Attending Clinician Unavailable LAB91 Attending Clinician Unavailable YULIANA KINCAID Attending Clinician Unavailable MICHELLE MACK Attending Clinician Unavailable MEERA MUSA Attending Clinician Unavailable Payers Payer Name Policy Type Policy Number Effective Date Expiration Date Ronny ELIZALDE JOELLE 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 00:00: - 00 Externa l Dizziness Dizziness Disease Active Tyrone sey 914 Seybold 00:00: - 00 Externa l Well adult Well adult Disease Active K carmen exam exam 04-17 Seybold 00:00: - 00 Externa l Overweight Overweight Disease Active K elsey (BMI (BMI 04-17 Seybold 25.0-29.9) 25.0-29.9) 00:00: - 00 Externa [...] l History of History of Disease Active K elsey PCOS PCOS 03-20 Seybold 00:00: - 00 [...] Source Name Type Date Date Clinician Penicill Drug Active Anaphylaxis Uni vers ins Allergy 9-11 ity of 00:00: [place] [facility] PENICILL Drug Active High Anaphylaxis Uni vers INS Class 9-11 ity of 00:00: [place] [facility] Penicill Propensi Active Anaphylaxis K elsey ins ty to 03-19 Seybold adverse 00:00: - reaction 00 Externa s l Penicill Allergy Active Unknown 2020-10 TREVER U in to 0-06 S substanc 00:00: Health e 00 Penicill Allergy Active Unknown TREVER U in to 3-22 S substanc 00:00: Health e 00 Penicill Allergy Active Unknown 2018-10 TREVER U in to 0-02 S substanc 00:00: Health e 00 NO KNOWN Drug Active Univers ALLERGIE Class ity of S [facility] Social History Social Habit Start Date Stop Date Quantity Comments Source Gender identity [facility] Sexual orientation Univer [facility] History of tobacco Cigarette Smoker Tram Tiwari - use External Alcohol intake 2023-07-03 2023-07-03 Current drinker Danial Tiwari - 00:00:00 00:00:00 of alcohol External (finding) Alcohol Comment 2023-04-17 2023-04-17 rarely Tram puente - 00:00:00 00:00:00 External Education 2023-03-20 2023-03-20 17 Tram Tiwari - 00:00:00 00:00:00 External History of Social 2023-03-19 2023-03-19 Tram Tiwari - function 00:00:00 00:00:00 External Cigarettes smoked 2023-03-19 2023-03-19 Tram Tiwari - current (pack per 00:00:00 00:00:00 Externa l day) - Reported Cigarette 2023-03-19 2023-03-19 Tram Tiwari - pack-years 00:00:00 00:00:00 External Tobacco use and 2023-03-19 2023-03-19 Smokeless Tram puente - exposure 00:00:00 00:00:00 tobacco non-user External Sex Ass[birth year] At [birth year] Universit y of 00:00:00 00:00:00 [facility] Smoking Status Start Date Stop Date Source Tobacco smoking consumption Univ ersity of [facility] [place] Branch Smokes tobacco daily 2023-03-19 00:00:00 Tram Sejasielmukund - External Medications Ordered Filled Start Stop Current Ordering Indication Dosage Frequency Signature Comments Components Source Medication Medication Date Date Medication? Clinician (SIG) Name Name Jerod 2022- No Take by Tram Herrera 07-03 mouth Seybol d na-Radha Lax 09:38: 00:00 - ([facility] 58 :00 Externa 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 OR) HYDROcodone Yes [id number] 1{tbl} Q.25D Take 1 Tram -Acetaminop 14 tablet by Cristian croft [id number] 00:00: mouth - MG oral 00 every 6 Externa Tablet hours as l needed for pain. busPIRone Yes Tram HCl 5 MG -13 Seybold oral Tablet 00:00: - 00 Externa l Lamotrigine 0 Yes Tram 25 MG oral -13 Seybold Tablet 00:00: - 00 Externa l Mirtazapine 0 Yes Tram 7.5 MG oral -13 Seybold Tablet 00:00: - 00 Externa l ketorolac 0 2022- No 30mg 30 mg, Unive rs (TORADOL) 07-01 Slow IV ity of injection 04:30: 03:54 Push, [place] 30 mg 00 :00 ONCE, 1 Medical dose, On Branch 06/30/23 at 2330, Routine NaCl 0.9% 0 2022- No 500mL at 999 Univ ers (NS) bolus 07-01 mL/hr, 500 it y of infusion 03:30: 04:00 mL, IV [place] 500 mL 00 :00 Infusion, Medical ONCE, 1 Branch dose, On 06/30/23 at 2230, STAT metoclopram 2022-0 2022- No 10mg 10 mg, Uni vers eamon HCl 07-01 Slow IV ity of (REGLAN) 03:30: 03:53 Push, [place] injection 00 :00 ONCE, 1 Medical 10 mg dose, On Branch Fri06/30/23 at 2230, ANA Meloxicam 0 Yes [id number] 7.5mg QD Take 1 Tram 7.5 MG oral 9-11 tablet Seybol d Tablet 00:00: (7.5 mg - 00 total) by Externa mouth l daily as needed for pain. Magnesium Yes Take by Kelse y Citrate 100 8-23 mouth Seybold MG oral 14:09: - Capsule 42 Externa l Cascara Yes Take by Tram [place]-Sen 8-23 mouth Seybold na-Radha Lax 14:09: - (BIO 42 Externa 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 OR) Magnesium Yes Take by Kelse y Citrate 100 8-23 mouth Seybold MG oral 14:09: - Capsule 42 Externa l Cyclobenzap 0 Yes [id number] TAKE 1 Tram rine HCl 10 8-23 TABLET BY Sey bold MG oral 00:00: MOUTH - Tablet 00 NIGHTLY Externa NEEDED FOR l MUSCLE SPASM Fluoxetine 0 Yes [id number] 20mg Take 1 Tram HCl 20 MG 8-23 capsule Seybold oral 00:00: (20 mg - Capsule 00 total) by Externa mouth l daily. Meloxicam 0 Yes [id number] 7.5mg Take 1 Tram 7.5 MG oral 8-23 tablet Seybol d Tablet 00:00: (7.5 mg - 00 total) by Externa mouth l daily. Diclofenac 0 Yes 1g Q.5D Apply 1 g Tram Sodium 8-23 topically Seybold (Voltaren) 00:00: 2 times - 1 % apply 00 daily as Manager Card a externally needed. l Gel Lidocaine 5 0 Yes 1{patch Place 1 Tram % apply 8-23 } patch onto Seybol d externally 00:00: the skin - Patch 00 every 24 Externa hours l Remove & Discard patch within 12 hours or as directed by MD. Cyclobenzap Yes [id number] TAKE 1 Tram rine HCl 10 8-23 TABLET BY Sey bold MG oral 00:00: MOUTH - Tablet 00 NIGHTLY Externa NEEDED FOR l MUSCLE SPASM Diclofenac 0 Yes [id number] 1g Q.5D Apply 1 g Tram Sodium 8-23 topically Seybold (Voltaren) 00:00: 2 times - 1 % apply 00 daily as Manager Card a externally needed. l Gel Lidocaine 5 0 Yes 1{patch Place 1 Tram % apply 8-23 } patch onto Seybol d externally 00:00: the skin - Patch 00 every 24 Externa hours l Remove & Discard patch within 12 hours or as directed by MD. Fluoxetine 2022- No [id number] 20mg Take 1 Tram HCl 20 MG 8-23 09-14 capsule Seybol d oral 00:00: 00:00 (20 mg - Capsule 00 :00 total) by Externa mouth l daily. Gabapentin Yes [id number] 600mg Take 2 Tram 300 MG oral 8-22 capsules Seyb old Capsule 00:00: (600 mg - 00 total) by Externa mouth 3 l times daily 600 mg every am and 600 mg every noon. Gabapentin 0 Yes [id number] 600mg Take 2 Tram 300 MG oral 8-22 capsules Seyb old Capsule 00:00: (600 mg - 00 total) by Externa mouth 3 l times daily 600 mg every am and 600 mg every noon. Propranolol 0 Yes 20mg Take 1 Alee ey HCl 20 MG 8-16 tablet (20 Seyb old oral Tablet 00:00: mg total) - 00 by mouth 2 Externa times l daily. Bisacodyl 0 2022- No 5mg Take 1 Kelse y (DULCOLAX) 8-15 08-15 tablet (5 Sey bold 5 MG oral 16:05: 00:00 mg total) - Tablet 34 :00 by mouth Externa Delayed once l Response HYDROcodone 0 Yes [id number] 1{tbl} Q.25D Take 1 Tram -Acetaminop 8-15 tablet by Sey bold hen 10-325 00:00: mouth - MG oral 00 every 6 Externa Tablet hours as l needed for pain HYDROcodone 0 Yes [id number] 1{tbl} Q.25D Take 1 Tram -Acetaminop 8-15 tablet by Cristian croft 10 00:00: mouth - MG oral 00 every 6 Externa Tablet hours as l needed for pain Pantoprazol 2022-0 Yes [id number] 40mg Take 1 Tram e Sodium 40 8-01 tablet (40 Se ybold MG oral 00:00: mg total) - Tablet 00 by mouth Externa Delayed daily l Response Pantoprazol 2022-0 Yes [id number] 40mg Take 1 Tram e Sodium 40 8-01 tablet (40 Se ybold MG oral 00:00: mg total) - Tablet 00 by mouth Externa Delayed daily l Response Pantoprazol 2022-0 Yes [id number] 40mg Take 1 Tram e Sodium 40 8-01 tablet (40 Se ybold MG oral 00:00: mg total) - Tablet 00 by mouth Externa Delayed daily l Response Acetaminoph 0 Yes 1{tbl} QD Take 1 Ke lsey en-Codeine 7-21 tablet by Vicky duval 300-30 MG 00:00: mouth - oral Tablet 00 daily as Exte rna needed. l HYDROcodone Yes [id number] 1{tbl} Q.82207328 Take 1 Tram -Acetaminop 7-20 [id number] tablet by Te croft 10 00:00: 3D mouth - MG oral 00 every 8 Externa Tablet hours as l needed for pain Naloxone Yes SPRAY 0.1 Alee ey (NARCAN) 4 7-20 ML (4 MG Seybo ld MG/0.1ML 00:00: TOTAL) BY - nasal 00 NASAL Externa Liquid ROUTE ONCE l FOR 1 DOSE. SPRAY IN NOSTRIL THEN CALL 911 HYDROcodone 2022- No [id number] 1{tbl} Q.[id number] Take 1 Tram -Acetaminop 7-20 08-15 [id number] tablet by Te croft 10 00:00: 00:00 3D mouth - MG oral 00 :00 every 8 Externa Tablet hours as l needed for pain Naloxone 0 2022- Yes [id number] 4mg 0.1 mL (4 Tram (NARCAN) 4 7-20 07-21 mg total) Sey bold MG/0.1ML 00:00: 04:59 by nasal - nasal 00 :00 route once Externa Liquid for 1 dose l [place] in nostril then call 911 Bisacodyl 0 Yes 5mg Take 1 Tram (DULCOLAX) 7-12 tablet (5 Seyb old 5 MG oral 15:37: mg total) - Tablet 49 by mouth Externa Delayed once l Response Magnesium Yes Take by TyroneIPICO Citrate 100 7 mouth Seybold MG oral 15:37: - Capsule 49 Externa l Cascara Yes Take by Tram AyalaJasper 04-30 mouth Seybold na-Radha Lax 15:37: - (BIOHM 49 Externa 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 OR) Bisacodyl Yes 5mg Take 1 Tram (DULCOLAX) 7 tablet (5 Seyb old 5 MG oral 15:37: mg total) - Tablet 49 by mouth Externa Delayed once l Response Magnesium Yes Take by TyroneIPICO Citrate 100 7 mouth Seybold MG oral 15:37: - Capsule 49 Externa l Cascara Yes Take by Tram AyalaJasper 04-30 mouth Seybold na-Radha Lax 15:37: - (BIOHM 49 Externa 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 OR) Magnesium Yes Take by Tyronese y Citrate 100 7 mouth Seybold MG oral 15:37: - Capsule 49 Externa l Cascara Yes [facility] mouth Seybold na-Radha Lax 15:37: - (BIOHM 49 Externa 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 OR) Bisacodyl 0 Yes 5mg Take 1 Tram (DULCOLAX) 6 tablet (5 Seyb old 5 MG oral 14:33: mg total) - Tablet 22 by mouth Externa Delayed once l Response Magnesium 0 Yes Take by Tyronese y Citrate 100 6- mouth Seybold MG oral 14:33: - Capsule 22 Externa l Cascara Yes Take by Tram Ayala-Sen 6-29 mouth Seybold na-Radha Lax 14:33: - (BIO 22 Externa 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 OR) Gabapentin Yes [id number] 600 mg Tram 300 MG oral 6-29 every am Seyb old Capsule 00:00: and 600 mg - 00 every noon Externa l Gabapentin 2022-0 Yes [id number] 600 mg Tram 300 MG oral 6-29 every am Seyb old Capsule 00:00: and 600 mg - 00 every noon Externa l Gabapentin 2022-0 Yes [id number] 600 mg Tram 300 MG oral 6-29 every am Seyb old Capsule 00:00: and 600 mg - 00 every noon Externa l Gabapentin 0 Yes [id number] 600 mg Tram 300 MG oral 6-29 every am Seyb old Capsule 00:00: and 600 mg - 00 every noon Externa l Acetaminoph 0 Yes [id number] 1{tbl} QD Take 1 Tram en-Codeine 6-23 tablet by Seyb old 300-30 MG 00:00: mouth - oral Tablet 00 daily as Exte rna needed for l pain Acetaminoph 0 Yes [id number] 1{tbl} QD Take 1 Tram en-Codeine 6-23 tablet by Seyb old 300-30 MG 00:00: mouth - oral Tablet 00 daily as Exte rna needed for l pain Acetaminoph 2022-0 2022- No [id number] 1{tbl} QD Take 1 Tram en-Codeine 6-23 07-20 tablet by Sey bold 300-30 MG 00:00: 00:00 mouth - oral Tablet 00 :00 daily as Exte rna needed for l pain Atorvastati 0 2022- No 40mg Take 1 Tyrone sey n Calcium -03-20 tablet (40 Sey bold 40 MG oral 16:06: 00:00 mg total) - Tablet 59 :00 by mouth Externa daily l Valacyclovi 0 2022- No 1000mg Take 1 K elsey r HCl 1 g 03-20 tablet Seybold oral Tablet 16:06: 00:00 (1,000 mg - 59 :00 total) by Externa mouth 2 l times daily Cascara 2023-0 Yes Take by Tram [place]-Sen 6-01 mouth Seybold na-Radha Lax 15:35: - (BIO 19 Externa 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 OR) Magnesium Yes Take by Danial y Citrate 100 6-01 mouth Seybold MG oral 15:35: - Capsule 04 Externa l Bisacodyl Yes 5mg Take 1 Tram (DULCOLAX) 6-01 tablet (5 Seyb old 5 MG oral 15:34: mg total) - Tablet 52 by mouth Externa Delayed once l Response Cyclobenzap Yes [id number] 10mg QD Take 1 Tram rine HCl 10 6-01 tablet (10 Se ybold MG oral 00:00: mg total) - Tablet 00 by mouth Externa nightly as l needed for muscle spasms Fluoxetine Yes [id number] 20mg Take 1 Tram HCl 20 MG 6-01 capsule Seybold oral 00:00: (20 mg - Capsule 00 total) by Externa mouth l daily Pantoprazol Yes [id number] 40mg Take 1 Tram e Sodium 40 6-01 tablet (40 Se ybold MG oral 00:00: mg total) - Tablet 00 by mouth Externa Delayed daily l Response Atorvastati Yes [id number] 40mg Take 1 Tram n Calcium 6-01 tablet (40 Seyb old 40 MG oral 00:00: mg total) - Tablet 00 by mouth Externa nightly l Valacyclovi Yes [id number] 1000mg Take 1 Tram r HCl 1 g 6-01 tablet Seybold oral Tablet 00:00: (1,000 mg - 00 total) by Externa mouth 2 l times daily Cyclobenzap Yes [id number] 10mg QD Take 1 Tram rine HCl 10 6-01 tablet (10 Se ybold MG oral 00:00: mg total) - Tablet 00 by mouth Externa nightly as l needed for muscle spasms Fluoxetine Yes [id number] 20mg Take 1 Tram HCl 20 MG 6-01 capsule Seybold oral 00:00: (20 mg - Capsule 00 total) by Externa mouth l daily Pantoprazol Yes [id number] 40mg Take 1 Tram e Sodium 40 6-01 tablet (40 Se ybold MG oral 00:00: mg total) - Tablet 00 by mouth Externa Delayed daily l Response Atorvastati Yes [id number] 40mg Take 1 Tram n Calcium 6-01 tablet (40 Seyb old 40 MG oral 00:00: mg total) - Tablet 00 by mouth Externa nightly l Valacyclovi 0 Yes [id number] 1000mg Take 1 Tram r HCl 1 g 6-01 tablet Seybold oral Tablet 00:00: (1,000 mg - 00 total) by Externa mouth 2 l times daily Cyclobenzap Yes [id number] 10mg QD Take 1 Tram rine HCl 10 6-01 tablet (10 Se ybold MG oral 00:00: mg total) - Tablet 00 by mouth Externa nightly as l needed for muscle spasms Fluoxetine Yes [id number] 20mg Take 1 Tram HCl 20 MG 6-01 capsule Seybold oral 00:00: (20 mg - Capsule 00 total) by Externa mouth l daily Atorvastati 0 Yes [id number] 40mg Take 1 Tram n Calcium 6-01 tablet (40 Seyb old 40 MG oral 00:00: mg total) - Tablet 00 by mouth Externa nightly l Valacyclovi 0 Yes [id number] 1000mg Take 1 Tram r HCl 1 g 6-01 tablet Seybold oral Tablet 00:00: (1,000 mg - 00 total) by Externa mouth 2 l times daily Atorvastati 0 Yes [id number] 40mg Take 1 Tram n Calcium 6-01 tablet (40 Seyb old 40 MG oral 00:00: mg total) - Tablet 00 by mouth Externa nightly l Valacyclovi 0 Yes [id number] 1000mg Take 1 Tram r HCl 1 g 6-01 tablet Seybold oral Tablet 00:00: (1,000 mg - 00 total) by Externa mouth 2 l times daily Atorvastati 0 Yes [id number] 40mg Take 1 Tram n Calcium 6-01 tablet (40 Seyb old 40 MG oral 00:00: mg total) - Tablet 00 by mouth Externa nightly l Valacyclovi 0 Yes [id number] 1000mg Take 1 Tram r HCl 1 g 6-01 tablet Seybold oral Tablet 00:00: (1,000 mg - 00 total) by Externa mouth 2 l times daily Gabapentin 2022-0 Yes [id number] 600 mg Tram 300 MG oral 6-01 every and Sey bold Capsule 00:00: 300 mg - 00 every noon Externa l Cyclobenzap 2022-0 Yes [id number] 10mg QD Take 1 Tram rine HCl 10 6-01 tablet (10 Se ybold MG oral 00:00: mg total) - Tablet 00 by mouth Externa nightly as l needed for muscle spasms Fluoxetine 2022-0 Yes [id number] 20mg Take 1 Tram HCl 20 MG 6-01 capsule Seybold oral 00:00: (20 mg - Capsule 00 total) by Externa mouth l daily Pantoprazol 2022-0 Yes [id number] 40mg Take 1 Tram e Sodium 40 6-01 tablet (40 Se ybold MG oral 00:00: mg total) - Tablet 00 by mouth Externa Delayed daily l Response Atorvastati 2022-0 Yes [id number] 40mg Take 1 Tram n Calcium 6-01 tablet (40 Seyb old 40 MG oral 00:00: mg total) - Tablet 00 by mouth Externa nightly l Valacyclovi 2022-0 Yes [id number] 1000mg Take 1 Tram r HCl 1 g 6-01 tablet Seybold oral Tablet 00:00: (1,000 mg - 00 total) by Externa mouth 2 l times daily Acetaminoph 2022-0 Yes [id number] 1{tbl} QD Take 1 Tram en-Codeine 6-01 tablet by Seyb old 300-30 MG 00:00: mouth - oral Tablet 00 daily as Exte rna needed for l pain Cyclobenzap 2022-0 Yes [id number] 10mg QD Take 1 Tram rine HCl 10 6-01 tablet (10 Se ybold MG oral 00:00: mg total) - Tablet 00 by mouth Externa nightly as l needed for muscle spasms Fluoxetine 2022-0 Yes [id number] 20mg Take 1 Tram HCl 20 MG 6-01 capsule Seybold oral 00:00: (20 mg - Capsule 00 total) by Externa mouth l daily Pantoprazol 2022-0 Yes [id number] 40mg Take 1 Tram e Sodium 40 6-01 tablet (40 Se ybold MG oral 00:00: mg total) - Tablet 00 by mouth Externa Delayed daily l Response Atorvastati 2022-0 Yes [id number] 40mg Take 1 Tram n Calcium 6-01 tablet (40 Seyb old 40 MG oral 00:00: mg total) - Tablet 00 by mouth Externa nightly l Valacyclovi 2022-0 Yes [id number] 1000mg Take 1 Tram r HCl 1 g - tablet Seybold oral Tablet 00:00: (1,000 mg - 00 total) by Externa mouth 2 l times daily Gabapentin 2022-0 2023- No [id number] 600 mg Tram 300 MG oral 03-20 every and Se ybold Capsule 00:00: 00:00 300 mg - 00 :00 every noon Externa l Gabapentin 2022-0 2022- No 300mg Take 1 Tyrone sey 300 MG oral 02-28 capsule Seyb old Capsule 00:00: 00:00 (300 mg - 00 :00 total) by Externa mouth 3 l times daily Pantoprazol 2022-0 2022- No 40mg Take 1 Tyrone sey e Sodium 40 5-05 06- tablet (40 S eybold MG oral 00:00: [...] Capsule 00 total) by Externa mouth l daily. Estradiol 2 2022-0 Yes 2mg Take 1 Alee ey MG oral 4-17 tablet (2 Seybold Tablet 00:00: mg total) - 00 by mouth Externa daily. l Progesteron 2022-0 Yes 200mg Take 1 Tyrone sey e 200 MG 4-17 capsule Seybold oral 00:00: (200 mg - Capsule 00 total) by Externa mouth l daily. Estradiol 2 2022-0 Yes 2mg Take 1 Alee ey MG oral 4-17 tablet (2 Seybold Tablet 00:00: mg total) - 00 by mouth Externa daily. l Progesteron 2022-0 Yes 200mg Take 1 [...] 00 by mouth Externa daily l Cyclobenzap 2022-2022- No 10mg Take 1 Tyrone sey rine HCl 10 4-17 - tablet (10 S eybold MG oral 00:00: 00:00 mg total) - Tablet 00 :00 by mouth 3 Externa times l daily Doxycycline 0 No 100mg Twice A CH RISTU Monohydrate 3-22 Day S (Doxycyclin 14:59: Health e) 100 Mg 00 CAPSULE Metronidazo 2021-0 No 500mg Twice A CH RISTU le (Flagyl) 3-22 Day S 500 Mg TAB 14:59: Health 00 Doxycycline 0 No 100mg Twice A CH RISTU Monohydrate -22 Day S (Doxycyclin 14:59: Health e) 100 Mg 00 CAPSULE Metronidazo 2020- No 500mg Twice A C HRISTU le (Flagyl) 01-08 04-02 Day S 500 Mg TAB 14:59: 00:00 Health 00 :00 Methylpredn 2020-0 No 1 As TREVER U isolone -16 Directed S (Medrol 04:01: Health Pack) 21 Tab/Dspk TAB Methylpredn No 1 As TREVER U isolone -16 Directed S (Medrol 04:01: Health Pack) 21 Tab/Dspk TAB Cefuroxime No 500mg Twice A CHR ISTU Axetil -16 Day S (Ceftin) 04:01: Health 500 Mg TAB 00 Meloxicam No 15mg Daily as CHRI TOLU (Mobic) 15 1-16 needed for S Mg TAB 04:01: Pain Health 00 Methylpredn 2020-0 No 1 As TREVER U isolone -16 Directed S (Medrol 04:01: Health Dose-Pack) 00 21 Tab/Dspk TAB Meloxicam 0 2020- No 15mg Daily as CHR ISTU (Mobic) 15 1-16 02-16 needed for S Mg TAB 04:01: 00:00 Pain Health 00 :00 Meloxicam 0 2020- No 15mg Daily as CHR ISTU (Mobic) 15 -16 02-16 needed for S Mg TAB 04:01: 00:00 Pain Health 00 :00 Cefuroxime 0 2020- No 500mg Twice A CH RISTU Axetil -16 11-15 Day S (Ceftin) 04:01: 00:00 Health 500 Mg TAB 00 :00 Cefuroxime 2020-0 2020- No 500mg Twice A CH RISTU Axetil -16 11-15 Day S (Ceftin) 04:01: 00:00 Health 500 Mg TAB 00 :00 Gentamicin 2018- No 1 Three TREVER U Sulfate 0-02 Times A S (Garamycin 11:23: Day Health Oph Oint) 00 3.5 Gm OINT..GM. Meclizine 2019 No 25mg Three CHRISTU Hcl 0-02 Times A S (Antivert) 11:23: Day as Healt h 25 Mg TAB 00 needed for Dizziness Gentamicin 2019- No 1 Three TREVER U Sulfate 0-02 Times A S (Garamycin 11:23: Day Health Oph Oint) 00 3.5 Gm OINT..GM. Meclizine 2018-10 No 25mg Three CHRISTU Hcl 0-02 Times A S (Antivert) 11:23: Day as Healt h 25 Mg TAB 00 needed for Dizziness Azithromyci 2019- No 1 As TREVER U n 0-02 [...] Azithromyci 2019 2019- No 1 As CYRIL TU n 0-02 08-21 Directed S (Zithromax 11:23: 00:00 Health Z-James) 6 00 :00 Tab/Pkg TAB Azithromyci 2018-10 2019- No 1 As CYRIL TU n 0-02 08-21 Directed S (Zithromax 11:23: 00:00 Health Z-James) 6 00 :00 Tab/Pkg TAB Acetaminoph 2017-0 2019- No 1 Every 6 CH RISTU en/Codeine 5-26 10-02 Hours S Phosphate 13:50: 00:00 Health (Tylenol 00 :00 #3) 1 Tab TAB Acetaminoph 2018- No 1 Every 6 CH RISTU en/Codeine - 10-02 Hours S Phosphate 13:50: 00:00 Health (Tylenol 00 :00 #3) 1 Tab TAB Acetaminoph 2018- No 1 Every 6 CH RISTU en/Codeine 03-14 10-02 Hours S Phosphate 13:50: 00:00 Health (Tylenol 00 :00 #3) 1 Tab TAB Acetaminoph 2013-10- No 1 Every 6 CH RISTU en/Codeine 11-03- Hours as S Phosphate 15:47: 00:00 needed [...] Times A S one [facility] ([place] 10/325) 1 Tab TAB Cyclobenzap No 10mg [...] Times A S one [facility] ([place] 10/325) 1 Tab TAB Cyclobenzap No 10mg [...] [facility] Cyclobenzap No 10mg Bedtime CYRIL TU rine [facility] Estradiol No 1mg Bedtime CHRISTU S Health Gabapentin No 600mg Twice A CYRIL TU Day S Health Lorazepam No 1mg Bedtime CHRISTU S Health Venlafaxine No 75mg Daily CHRISTU Hcl S Health Acetaminoph No 1 Three CHRISTU en/Hydrocod Times A S one [facility] ([place] 10) 1 Tab TAB Cyclobenzap No 10mg Bedtime [...] 10mg Twice A CHRI TOLU rine Hcl 03- Day S (Flexeril) 00:00 Health 10 Mg TAB :00 Gabapentin 2014- No 300mg Three TREVER U (Neurontin) 03-19 Times A S 300 Mg CAP 00:00 Day Health :00 Lorazepam 2015- No .5mg Twice A TREVER U (Ativan) 01-05 Day S 0.5 Mg TAB 00:00 Health :00 Omeprazole 2015- No 40mg Bedtime (Prilosec) 01-05 S 40 Mg CPDR 00:00 Health :00 Cyclobenzap 2015- No 10mg Twice A CHRI TOLU rine Hcl - Day S (Flexeril) 00:00 Health 10 Mg TAB :00 Gabapentin 2014- No 300mg Three TREVER U (Neurontin) 03-19 [...] 2014- No 300mg Three TREVER U (Neurontin) 03-19 Times A S 300 Mg CAP 00:00 Day Health :00 Lorazepam 2015- No .5mg Twice A TREVER U (Ativan) 01-05 Day S 0.5 Mg TAB 00:00 Health :00 Omeprazole 2015- No 40mg Bedtime CYRIL LEMOS (Prilosec) 01-05 S 40 Mg CPDR 00:00 Health :00 Miscellaneo 2014- No 0 Xx For [facility] 11-15 Order Sets S Information 00:00 Health (No Home :00 Meds) [facility] Miscellaneo 2014- No 0 Xx For [facility] 11-15 Order Sets S Information 00:00 Health (No Home :00 Meds) [facility] Miscellaneo 2014- No 0 Xx For [facility] 11-15 Order Sets S Information 00:00 Health (No Home :00 Meds) [facility] Immunizations Ordered Immunization Filled Immunization Date Status [...] 00:00:00 - External Pneumococcal 2023-04-17 Completed Tram Perryo ld Conjugate 15 00:00:00 - External (Vaxneuvance) Tdap- (Boostrix, 2023-04-17 Completed Tram chengbopritesh Adacel) 00:00:00 - External Pneumococcal 2023-04-17 Completed Tram Perryo ld Conjugate 15 00:00:00 - External (Vaxneuvance) Tdap- (Boostrix, 2023-04-17 Completed Tram ahn Adacel) 00:00:00 - External Pneumococcal 2023-04-17 Completed Tram Perryo ld Conjugate 15 00:00:00 - External (Vaxneuvance) Tdap- (Boostrix, 2023-04-17 Completed Tram ahn Adacel) 00:00:00 - External Vital Signs Vital Name Observation Time Observation Value Comments Source Systolic blood 2023-07-03 14:24:00 112 mm[Hg] Tram Seybold - pressure External Diastolic blood 2023-07-03 14:24:00 60 mm[Hg] Danial khan Seybmukund - pressure External Heart rate 2023-07-03 14:24:00 89 /min Tram ahn - External Body temperature 2023-07-03 14:24:00 36.28 Kelli Alee ey Seybold - External Respiratory rate 2023-07-03 14:24:00 15 /min Alee cheng Seybold - External Oxygen saturation in 2023-07-03 14:24:00 98 /min Tram Tiwari - Arterial blood by External Pulse oximetry Systolic blood 2023-07-01 04:37:36 103 mm[Hg] [facility] Diastolic blood 2023-07-01 04:37:36 59 mm[Hg] [facility] Heart rate 2023-07-01 04:37:36 100 /min [facility] Respiratory rate 2023-07-01 04:37:36 17 /min [facility] Oxygen saturation in 2023-07-01 04:37:36 100 /min [facility] Arterial blood by [facility] Pulse oximetry Branch Body temperature 2023-07-01 01:03:00 37 Kelli [facility] Body height 2023-07-01 01:03:00 162.6 cm [facility] Body weight 2023-07-01 01:03:00 79.379 kg [facility] BMI 2023-07-01 01:03:00 30.04 kg/m2 [facility] Systolic blood 2023-06-11 19:10:00 110 mm[Hg] Tram Seybold - pressure External Diastolic blood 2023-06-11 19:10:00 70 mm[Hg] Kelse y Seybold - pressure External Heart rate 2023-06-11 19:10:00 102 /min Tram S eybold - External Respiratory rate 2023-06-11 19:10:00 16 /min Alee ey Seybold - External Body height 2023-06-11 19:10:00 162.6 cm Tram S eybold - External Body weight 2023-06-11 19:10:00 78.382 kg Tram S eybold - External BMI 2023-06-11 19:10:00 29.66 kg/m2 Tram S eybold - External Body height 2023-04-30 20:30:00 162.6 cm Tram S eybold - External Body weight 2023-04-30 20:30:00 74.844 kg Tram S eybold - External BMI 2023-04-30 20:30:00 28.32 kg/m2 Tram S eybold - External Systolic blood 2023-04-17 19:32:00 107 mm[Hg] Tram Seybold - pressure External Diastolic blood 2023-04-17 19:32:00 69 mm[Hg] Kelse y Seybold - pressure External Heart rate 2023-04-17 19:32:00 87 /min Tram S eybold - External Body temperature 2023-04-17 19:32:00 36.61 Kelli Alee ey Seybold - External Respiratory rate 2023-04-17 19:32:00 14 /min Alee ey Seybold - External Body height 2023-04-17 19:32:00 162.6 cm Tram Jefferson eybold - External Body weight 2023-04-17 19:32:00 76.204 kg Tram S eybold - External BMI 2023-04-17 19:32:00 28.84 kg/m2 Tram S eybold - External Oxygen saturation in 2023-04-17 19:32:00 99 /min Tram Seybold - Arterial blood by External Pulse oximetry Systolic blood 2023-03-20 20:29:00 122 mm[Hg] Tram Seybold - pressure External Diastolic blood 2023-03-20 20:29:00 73 mm[Hg] Danial y Seybold - pressure External Heart rate 2023-03-20 20:29:00 93 /min Tram Jefferson eybold - External Body temperature 2023-03-20 20:29:00 36.61 Kelli Alee ey Seybold - External Respiratory rate 2023-03-20 20:29:00 19 /min Alee cheng Seybold - External Body height 2023-03-20 20:29:00 162.6 cm Tram Jefferson eybold - External Body weight 2023-03-20 20:29:00 75.297 kg Tram Jefferson eybold - External BMI 2023-03-20 20:29:00 28.49 kg/m2 Tram Jefferson eybold - External Oxygen saturation in 2023-03-20 20:29:00 99 /min Tram Taiybold - Arterial blood by External Pulse oximetry [...] 165 [lb_av] [facility] BMI (Body Mass 2019-07-21 10:06:00 28.3 kg/m2 [facility] Index) Procedures Procedure Date / Time Performed Performing Clinician Sour e NOTICE OF PRIVACY 2023-07-01 00:51:32 [facility], [facility] CONSENT/REFUSAL FOR 2023-07-01 00:50:54 Doctor Unassigned, [facility] AND Name Medical Branch TREATMENT HAND/WRIST BILATERAL 2023-06-11 20:08:38 Duran Gallegos - External X-ray of foot, three 2021-07-25 00:00:00 [facility] [employer] views Plan of Care Planned Activity Planned Date Details Comments Source Encounters Start End Encounter Admission Attending Care Care Encounter Source Date/Time Date/Time Type Type Clinicians Facility Department ID 2021-01-08 Inpatient TERRIE BROOKE TERRIE [id number] [facility] 09:00:[address] 2023-09-01 2023-09-01 Outpatient TRAM MEJIA [id number] Tram 09:15:00 09:15:00 ARMIN Seybo ld 2023-08-13 2023-08-13 Outpatient TRAM GALLEGOS [id number] Tram 15:00:00 15:00:00 DURAN Seybol d 2023-08-06 2023-08-06 Outpatient TRAM WARREN [id number] Tram 10:00:00 10:00:00 MAEVE Seybol d 2023-07-18 2023-07-18 Outpatient TRAM OVERTON [id number] Tram 16:00:00 16:00:00 JUANITA Seybol d 2023-07-15 2023-07-15 Outpatient DEMARCO HUFFMAN [id number] Tram 14:45:00 14:45:00 Seybol d 2023-07-08 2023-07-08 Outpatient TRAM MCFARLANE [id number] Tram 10:00:00 10:00:00 ROBERTA Seybol d 2023-07-04 2023-07-04 Outpatient ANTONIETTA BENAVIDEZ [id number] Tram 11:00:00 11:00:00 Seybol d 2023-07-03 2023-07-03 Outpatient TRAM OVERTON [id number] Tram 09:45:00 09:45:00 JUANITA Seybol d 2023-07-03 2023-07-03 Outpatient TRAM OVERTON [id number] Tram 09:30:00 09:30:00 JUANITA Seybol d 2023-07-03 2023-07-03 Outpatient DEMARIO CARLISLE TRAM SALGADO [id number] Tram 09:00:00 09:00:00 Seybol d 2023-07-02 2023-07-02 Outpatient ANSTRAM LAY [id number] Tram 00:00:00 00:00:00 MAEVE Seybol d 2023-06-30 2023-06-30 [facility] [id number] Univers 20:05:00 23:44:00 Jeancarlos POLLACK [id number] arlen [facility] [id number] [facility] [id number] [address] 2023-06-30 2023-06-30 Emergency [facility] [id number] Univers 20:05:00 23:44:00 JEANCARLOS alfaro [facility] 2023-06-30 2023-06-30 Outpatient TRAM WARREN [id number] Tram 00:00:00 00:00:00 MAEVE Seybol d 2023-06-30 2023-06-30 Outpatient TRAM OVERTON [id number] Tram 00:00:00 00:00:00 JUANITA Seybol d 2023-06-28 2023-06-28 Outpatient TRAM GALLEGOS [id number] Tram 00:00:00 00:00:00 DURAN Seybol d 2023-06-26 2023-06-26 Outpatient TRAM GALLEGOS [id number] Tram 00:00:00 00:00:00 DURAN Seybol d 2023-06-25 2023-06-25 Outpatient LAB90 TRAM SALGADO [id number] Tram 08:10:00 08:10:00 Seybol d 2023-06-20 2023-06-20 Outpatient RANDA, TRAM SALGADO [id number] Tram 11:30:00 11:30:00 REYMUNDO Seybol d 2023-06-20 2023-06-20 Outpatient PRETRAM DALEY [id number] Tram 00:00:00 00:00:00 JUANITA Seybol d 2023-06-18 2023-06-18 Outpatient GALLEGOSTRAM Sheth [id number] Tram 00:00:00 00:00:00 DURAN Seybol d 2023-06-18 2023-06-18 Outpatient PREZASTRAM [id number] Tram 00:00:00 00:00:00 JUANITA Seybol d 2023-06-17 2023-06-17 Outpatient PREZATRAM [place] [id number] Tram 00:00:00 00:00:00 JUANITA Seybol d 2023-06-11 2023-06-11 Outpatient TRAM SALGADO [id number] Tram 15:00:00 15:00:00 Seybol d 2023-06-11 2023-06-11 Outpatient GALLEGOSTRAM Sheth [id number] Tram 14:00:00 14:00:00 DURAN Seybol d 2023-06-11 2023-06-11 Outpatient PREZATRAM [place] [id number] Tram 00:00:00 00:00:00 JUANITA Seybol d 2023-06-10 2023-06-10 Outpatient PREZASTRAM [id number] Tram 00:00:00 00:00:00 JUANITA Seybol d 2023-06-10 2023-06-10 Outpatient MYKELSEYONEdilia SALGADO [id number] Tram 00:00:00 00:00:00 MD STEPHANE Seybol d 2023-06-05 2023-06-05 Outpatient PREZATRAM [place] [id number] Tram 00:00:00 00:00:00 JUANITA Seybol d 2023-06-05 2023-06-05 Outpatient PREZATRAM [place] [id number] Tram 00:00:00 00:00:00 JUANITA Seybol d 2023-06-04 2023-06-04 Outpatient PREZATRAM [place] [id number] Tram 00:00:00 00:00:00 JUANITA Seybol d 2023-06-03 2023-06-03 Outpatient ANSOANUUTRAM Alex [id number] Tram 15:45:00 15:45:00 MAEVE Seybol d 2023-06-03 2023-06-03 Outpatient ANSOANUURTRAM [id number] Tram 00:00:00 00:00:00 MAEVE Seybol d 2023-05-27 2023-05-27 Outpatient PREZASTRAM [id number] Tram 00:00:00 00:00:00 JUANITA Seybol d 2023-05-23 2023-05-23 Outpatient TRAM SALGADO [id number] Tram 15:45:00 15:45:00 Seybol d 2023-05-23 2023-05-23 Outpatient ANSOATRAM LUGO [id number] Tram 00:00:00 00:00:00 MAEVE Seybol d 2023-05-23 2023-05-23 Outpatient PREZATRAM [place] [id number] Tram 00:00:00 00:00:00 JUANITA Seybol d 2023-05-23 2023-05-23 Outpatient ANSOANTRAM SMITH [id number] Tram 00:00:00 00:00:00 MAEVE Seybol d 2023-05-22 2023-05-22 Outpatient PREZATRAM [place] [id number] Tram 00:00:00 00:00:00 JUANITA Seybol d 2023-05-19 2023-05-19 Outpatient PREZATRAM [place] [id number] Tram 00:00:00 00:00:00 JUANITA Seybol d 2023-05-13 2023-05-13 Outpatient ANSOANTRAM SMITH [id number] Tram 00:00:00 00:00:00 MAEVE Seybol d 2023-05-12 2023-05-12 Outpatient TRAM OVERTON [id number] Tram 00:00:00 00:00:00 JUANITA Seybol d 2023-05-09 2023-05-09 Outpatient TRAM OVERTON [id number] Tram 00:00:00 00:00:00 JUANITA Seybol d 2023-05-09 2023-05-09 Outpatient SACTRAM [id number] Tram 00:00:00 00:00:00 HARRIET Seybol d 2023-05-08 2023-05-08 Outpatient ANSOANUUTRAM Alex [id number] Tram 16:45:00 16:45:00 MAEVE Seybol d 2023-05-07 2023-05-07 Outpatient ANSTRAM LAY [id number] Tram 00:00:00 00:00:00 MAEVE Seybol d 2023-05-06 2023-05-06 Outpatient TRAM OVERTON [id number] Tram 00:00:00 00:00:00 JUANITA Seybol d 2023-05-05 2023-05-05 Outpatient ANSOANUUTRAM Alex [id number] Tram 00:00:00 00:00:00 MAEVE Seybol d 2023-05-01 2023-05-01 Outpatient TRED91 TRAM SALGADO [id number] Tram 08:00:00 08:00:00 Seybol d 2023-05-01 2023-05-01 Outpatient TRAM WARREN [id number] Tram 00:00:00 00:00:00 MAEVE Seybol d 2023-04-30 2023-04-30 Outpatient LAB91 TRAM SALGADO [id number] Tram 17:00:00 17:00:00 Seybol d 2023-04-30 2023-04-30 Outpatient TRAM SALGADO [id number] Tram 16:20:00 16:20:00 Seybol d 2023-04-30 2023-04-30 Outpatient TRED91 TRAM SALGADO [id number] Tram 16:15:00 16:15:00 Seybol d 2023-04-30 2023-04-30 Outpatient ANSOANUUR TRAM SALGADO [id number] Tram 16:15:00 16:15:00 MAEVE Seybol d 2023-04-25 2023-04-25 Outpatient ELIANA TRAM SALGADO [id number] Tram 00:00:00 00:00:00 MD STEPHANE Seybol d 2023-04-25 2023-04-25 Outpatient PREZASTRAM [id number] Tram 00:00:00 00:00:00 JUANITA Seybol d 2023-04-21 2023-04-21 Outpatient PREZASTRAM [id number] Tram 00:00:00 00:00:00 JUANITA Seybol d 2023-04-17 2023-04-17 Outpatient PREZATRAM [place] [id number] Tram 15:00:00 15:00:00 JUANITA Seybol d 2023-04-16 2023-04-16 Outpatient LAB90 TRAM SALGADO [id number] Tram 08:45:00 08:45:00 Seybol d 2023-04-15 2023-04-15 Outpatient ELIANA TRAM SALGADO [id number] Tram 00:00:00 00:00:00 MD STEPHANE Seybol d 2023-04-11 2023-04-11 Outpatient PREZATRAM [place] [id number] Tram 00:00:00 00:00:00 JUANITA Seybol d 2023-04-10 2023-04-10 Outpatient PREZATRAM [place] [id number] Tram 00:00:00 00:00:00 JUANITA Seybol d 2023-03-31 2023-03-31 Outpatient EARLENEEdilia SALGADO [id number] Tram 00:00:00 00:00:00 MD STEPHANE Seybol d 2023-03-30 2023-03-30 Outpatient PREZATRAM [place] [id number] Tram 00:00:00 00:00:00 JUANITA Seybol d 2023-03-20 2023-03-20 Outpatient PREZATRAM [facility] [id number] Tram 15:30:00 15:30:00 JUANITA allred 2022-09-22 2022-09-22 Emergency ER TERRIE KINCAID [id number] [facility] 17:29:00 22:00:00 YULIANA [id number] S [facility] 2021-07-25 2021-07-25 Departed ER TERRIE MACK [id number] [facility] 18:43:00 20:30:00 Emergency MICHELLE [facility] [address] [facility] 2021-01-08 2021-01-08 Departed [facility] EA07 [id number] [facility] 15:00:00 16:42:00 Emergency [facility] [address] [facility] 2020-11-04 2020-11-04 Departed TERRIE MUSA [id number] [facility] 03:37:00 05:22:00 Emergency MEERA [facility] [address] [facility] 2019-07-21 2019-07-21 Departed [facility] EA07 [id number] [facility] 10:49:00 11:48:00 Emergency [facility] 22 Room Health Results Test Description Test Time Test Comments Results Result Comments Source Urine color determination 2021-01-08 14:41:00 Test Item Value Reference Range Interpretation Comme nts Urine Color (test code = 5778-6) YELLOW STR/YELLOW [facility] appearance [id number] 14:41:00 Test Item Value Reference Range Interpretation Comments Urine Appearance (test code = 5767-9) CLEAR CLEAR [facility] pH measurement by test [id number] 14:41:00 Test Item Value Reference Range Interpretation Comments Urine pH (test code = 5803-2) 7.0 5.0-8.0 [facility] of Urine by Test [id number] 14:41:00 Test Item Value Reference Range Interpretation Comments Urine Specific [place] (test code = 1.010 1.005-1.030 5811-5) [facility] protein measurement by automated test strip (mass/volume) 2021-01-08 14:41:00 Test Item Value Reference Range Interpretation Comments Urine Protein (test code = 06400-7) NEGATIVE NEGATIVE [facility] glucose measurement by automated test strip (mass/volume) 2021-01-08 14:41:00 Test Item Value Reference Range Interpretation Comments Urine Glucose (UA) (test code = NEGATIVE NEGATIVE 95572-1) [facility] ketones measurement by test strip (mass/volume)2021-01-08 14:41:00 Test Item Value Reference Range Interpretation Comments Urine Ketones (test code = 5797-6) NEGATIVE NEGATIVE [facility] erythrocytes count by automated test strip (number/volume) 2021-01-08 14:41:00 Test Item Value Reference Range Interpretation Comments Urine Occult Blood (test code = NEGATIVE NEGATIVE 06598-1) [facility] nitrite detection by automated test [id number] 14:41:00 Test Item Value Reference Range Interpretation Comments Urine Nitrite (test code = 15062-2) NEGATIVE NEGATIVE [facility] total bilirubin detection by test [id number] 14:41:00 Test Item Value Reference Range Interpretation Comments Urine Bilirubin (test code = 5770-3) NEGATIVE NEGATIVE [facility] urobilinogen measurement by automated test strip (mass/volume)2021-01-08 14:41:00 Test Item Value Reference Range Interpretation Comments Urine Urobilinogen (test code = 0.2 0.2-1.0 32496-1) [facility] leukocyte esterase detection by automated test strip 2021-01-08 14:41:00 Test Item Value Reference Range Interpretation Comments Urine Leukocyte Esterase (test code NEGATIVE NEGATIVE = 67794-8) [facility] comment 14:41:00 Test Item Value Reference Range Interpretation Comments Urine Culture Indicated (test code = YES 8265-1) [facility] comment 14:41:00 Test Item Value Reference Range Interpretation Comments Urine Culture Reflexed NO,C&S NOT INDICATED (test code = 8266-9) [facility] specimen collection [id number] 14:41:00 Test Item Value Reference Range Interpretation Comments Urine Collection Type (test code = VOIDED 56283-7) [facility] beta-human chorionic gonadotropin (BhCG) detection 2021-01-08 14:41:00 Test Item Value Reference Range Interpretation Comments Urine Test (test code = NEGATIVE NEGATIVE 2-1) [facility] color [id number] 03:50:00 Test Item Value Reference Range Interpretation Comments Urine Color (test code = 5778-6) YELLOW STR/YELLOW [facility] urine appearance [id number] 03:50:00 Test Item Value Reference Range Interpretation Comments Urine Appearance (test code = 5767-9) CLEAR CLEAR [facility] pH measurement by test [id number] 03:50:00 Test Item Value Reference Range Interpretation Comments Urine pH (test code = 5803-2) 8.0 5.0-8.0 [facility] gravity of Urine by Test [id number] 03:50:00 Test Item Value Reference Range Interpretation Comments Urine Specific [place] (test code = 1.010 1.005-1.030 5811-5) [facility] protein measurement by automated test strip (mass/volume) 2020-11-04 03:50:00 Test Item Value Reference Range Interpretation Comments Urine Protein (test code = 96554-8) NEGATIVE NEGATIVE [facility] glucose measurement by automated test strip (mass/volume) 2020-11-04 03:50:00 Test Item Value Reference Range Interpretation Comments Urine Glucose (UA) (test code = NEGATIVE NEGATIVE 07940-7) [facility] ketones measurement by test strip (mass/volume)2020-11-04 03:50:00 Test Item Value Reference Range Interpretation Comments Urine Ketones (test code = 5797-6) NEGATIVE NEGATIVE [facility] erythrocytes count by automated test strip (number/volume) 2020-11-04 03:50:00 Test Item Value Reference Range Interpretation Comments Urine Occult Blood (test code = NEGATIVE NEGATIVE 13956-6) [facility] nitrite detection by automated test [id number] 03:50:00 Test Item Value Reference Range Interpretation Comments Urine Nitrite (test code = 29491-7) NEGATIVE NEGATIVE [facility] total bilirubin detection by test [id number] 03:50:00 Test Item Value Reference Range Interpretation Comments Urine Bilirubin (test code = 5770-3) NEGATIVE NEGATIVE [facility] urobilinogen measurement by automated test strip (mass/volume)2020-11-04 03:50:00 Test Item Value Reference Range Interpretation Comments Urine Urobilinogen (test code = 0.2 0.2-1.0 16212-6) [facility] leukocyte esterase detection by automated test strip 2020-11-04 03:50:00 Test Item Value Reference Range Interpretation Comments Urine Leukocyte Esterase (test code NEGATIVE NEGATIVE = 27684-0) [facility] 03:[facility]00 Test Item Value Reference Range Interpretation Comments Urine Culture Indicated (test code = YES 8265-1) [facility] 03:50:00 Test Item Value Reference Range Interpretation Comments Urine Culture Reflexed NO,C&S NOT INDICATED (test code = 8266-9) [facility] [id number] 03:50:00 Test Item Value Reference Range Interpretation Comments Urine Collection Type (test code = VOIDED 07403-7) [facility] beta-human chorionic gonadotropin (BhCG) detection 2020-11-04 03:50:00 Test Item Value Reference Range Interpretation Comments Urine Test (test code = NEGATIVE NEGATIVE 2111-1) [facility] Notes Date/Time Note Provider Source 2023-07-03 Carlos Alberto 09:25:33-00:00 Yue Wu is a 42 year old female in office with c/o for the past 2 weeks with MENDEZ, Ears ringing and painful, clear drainage from nose when she bends over and the drainage tastes strange. Loss of balance, and at time urine incontinence. Clinic 2023-06-30 Formatting of this note might be differe nt from the original. Leticia Israel RN [facility] 23:44:13-00:00 Pt voiced understanding with d/c instructions and reports no questions. Pt aaox3, resp even and nonlabored 2023-06-30 Formatting of this note might be differe nt from the original. Tawana Suarez RN [facility] 23:07:13-00:00 Report given to VITOR Kelly Electronically signed by Tawana Suarez RN a t 06/30/2023 11:07 PM CDT 2023-06-30 [facility] 20:01:19-00:00 Pt presents with c/o headach e for two weeks, blurry vision yesterday, bad taste when she bends over. Pt has herniated disc in back. Pt took hydrocodone for pain, flexeril, gabapent in , and motrin Electronically signed by Jen Diaz RN at 0 06/30/2023 8:05 PM CDT 2023-06-30 Formatting of this note is different from the or iginal. [facility] 19:50:00-00:00 [facility] Emergency Department Note Demographics Patient Name: Yue Wu Date of : 1980 42 year old Treatment Room: [place] [address] Primary Care Physician: No primary care provider on file. 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 Pt has herniated disc in back. Pt took hydrocodone for pain, flexeril, gabapent in , and motrin Chief Complaint Patient presents with Headache History of present illness HPI 42 yo woman comes to the ED complaining of headache for five days. She has tried her gabapentin, norco and ibuprofen. Denies fever, chills, nausea, vomiting, visual or gait changes. Past Medical and Social History History reviewed. No pertinent past medical hist ory. Tetanus received in last 5 years: Unknown Past Surgical History History reviewed. No pertinent surgical history. Medications Medications metoclopramide HCl (REGLAN) injection 10 mg (10 mg Slow IV Push Given 06/30/232252) ketorolac (TORADOL) injection 30 mg (30 mg Slow IV Push Given 06/30/232253) NaCl 0.9% (NS) bolus infusion 500 mL (0 mL IV In fusion Stopped 06/30/23 2300) Allergies Allergies Allergen Reactions Pcn [Penicillins] Anaphylaxis Review of Systems Review of Systems Constitutional: Negative. HENT: Negative. Eyes: Negative. Respiratory: Negative. Cardiovascular: Negative. Gastrointestinal: Negative. Genitourinary: Negative. Musculoskeletal: Negative. Skin: Negative. Neurological: Positive for headaches. Psychiatric/Behavioral: Negative. Endocrine: Endocrine negative Physical Exam BP 103/59 | Pulse 100 | Temp 37 ?C (98.6 ?F) | Resp 17 | Ht 1.626 m (5' 4") | Wt 79.4 kg (175 lb) | SpO2 100% | BMI 30.04 kg/m? Physical Exam Vitals and nursing note reviewed. Constitutional: General: She is not in acute distress. Appearance: She is well-dev eloped and normal weight. She is not ill-appearing. HENT: Head: Normocephalic and atraumatic. Right Ear: External ear normal. Left Ear: External ear normal. Nose: Nose normal. No congestion or rhinorrhea. Mouth/Throat: Pharynx: No oropharyngeal exudate or posterior oropharyngeal erythema. Eyes: General: Right eye: No discharge. Left eye: No discharge. Conjunctiva/sclera: Conjunctivae normal. Pupils: Pupils are equal, round, and reactive t o light. Cardiovascular: Rate and Rhythm: Normal rate and regular rhythm . Heart sounds: Normal heart sounds. No murmur he rico. No friction rub. Pulmonary: Effort: Pulmonary effort is normal. No respirat ory distress. Breath sounds: Normal breath sounds. No stridor . No wheezing or rhonchi. Abdominal: General: Bowel sounds are normal. There is no d istension. Palpations: Abdomen is soft. There is no mass. Tenderness: There is no abdominal tenderness. Hernia: No hernia is present. Musculoskeletal: General: No swelling, tende rness, deformity or signs of injury. Normal range of motion. Cervical back: Normal range of motion and neck supple. No rigidity or tenderness. Skin: General: Skin is warm. Capillary Refill: Capillary refill takes less t gutierrez 2 seconds. Coloration: Skin is not jaundiced or pale. Findings: No bruising or erythema. Neurological: General: No focal deficit present. Mental Status: She is alert and oriented to rson, place, and time. Cranial Nerves: No cranial nerve deficit. Sensory: No sensory deficit. Motor: No weakness. Coordination: Coordination normal. Psychiatric: Mood and Affect: Mood normal. Behavior: Behavior normal. Thought Content: Thought content normal. Judgment: Judgment normal. Labs and Studies Lab Results - No data to display No orders to display Orders and Treatments No orders of the defined types were placed in th is encounter. Orders Placed This Encounter Medications metoclopramide HCl (REGLAN) injection 10 mg ketorolac (TORADOL) injection 30 mg NaCl 0.9% (NS) bolus infusion 500 mL Patient's Medications No medications on file Procedures Procedures Evidence Care No notes of EC Admission Criteria type on file. MDM & Notes Patient was evaluated for an emergency medical c ondition related to Headache . History and/or review of systems is limited by:H istory limited: None. Medical Decision Making 42 yo woman comes to the ED complaining of headache for five days. She has tried her gabapentin, norco and ibuprofen. Denies fever, chills, nausea, vomiting, visual or gait changes. DDx headache, neck pain Amount and/or Complexity of Data Reviewed External Data Reviewed: radiology. Details: Last MRI just last month at 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 Neuro non focal Advised to f/u with PCP and return to the ED if worsening of symptoms. Risk OTC drugs. Prescription drug management. Diagnosis/Impression as of 06/30/23 1268 Nonintractable headache, uns pecified chronicity pattern, unspecified headache type Case discussed with: none Barriers & Social Determinants of Healthcare: Limitations to patient care and compliance: none . Assessment: Yue Wu is a 42 y ear old female presenting for single complaint(s) listed below and mentioned within the note. The patient has acute condition(s). Follow up with providers listed below for fu rther evaluation and managem ent. Return precautions given if symptoms worsen as documented in the discharge instructions. History, physical exam findi ngs, results of visit, differential diagnosis, medication regimens and plan of future care have been considered. Additional MDM may be found in the ED course. Differential di agnosis considered and final disposition made based on information gathered during evaluation and may not be completely ruled out or specifically listed. Vital signs were rechecked before final disposition and determined to be stable. Diagnoses ICD-10-CM 1. Nonintractable headache, unspecified chronicity pattern, unspecified headache type R51.9 Disposition and Condition ED Disposition ED Disposition Disch - Home Condition Stable Comment -- Patient's Medications No medications on file Jeancarlos Hickey MD, FACEP, FAAEM Foil Operator of Emergency [facility] #[id number] Jeancarlos Hickey MD 06/30/23 [id number] Electronically signed by Jeancarlos Hickey MD at 0 06/30/2023 11:38 PM CDT 2023-06-11 Formatting of this note is different from the or iginal. Carlos Alberto 14:08:57-00:00 Chief Complaint Clinic Patient presents with Consultation Patient states she is here due to arthritis. Patient states the arthritis is in her back. She has a history on trigger finger in both thumbs. Brittny Khan CMA II 2023-04-30 Formatting of this note is different [...]
--- NOTE | 2023-07-03 11:25 | RAD REPORT ---
EXAM DESCRIPTION: CT - Head Brain Wo Cont - 07/03/2023 10:49 am CLINICAL HISTORY: HEADACHE COMPARISON: No comparisons TECHNIQUE: Noncontrast head CT images were obtained without IV contrast. Multiplanar reformats were generated and reviewed. All CT scans are performed using dose optimization technique as appropriate and may include automated exposure control or mA/KV adjustment according to patient size. FINDINGS: No intracranial hemorrhage, mass, or edema. Midline structures are unremarkable. Normal ventricular caliber for age. Sanders-white matter differentiation is preserved, without evidence of acute infarct. No abnormal extra- axial fluid collections. Mastoid air cells are well aerated. Mild scattered inflammatory mucosal thickening in the paranasal s inuses. No acute bony findings. IMPRESSION: No evidence of an acute intracranial process.
[2023-07-03 11:31] LABS: Absolute Lymphocytes (CBC) 4.9 K/uL (0.7-4.9); Hematocrit 37.4 % (36.0-45.0); Lymphocytes % 44.4 % (15.3-44.8); MCV 92.7 fL (80-100); MPV 8.2 fL (7.6-11.3); Platelets 264 thou/uL (152-406); RBC Red Blood Cell Count 4.03 M/uL (3.86-4.86)
[2023-07-03 11:38] LABS: Protime INR 0.91
[2023-07-03 11:57] LABS: ALT/SGPT 22 U/L (13-56); AST/SGOT 9 U/L (15-37); Albumin 3.4 g/dL (3.4-5.0); Alkaline Phosphatase 90 U/L (45-117); BUN Blood Urea Nitrogen 12 mg/dL (7-18); Bicarbonate 30 mEq/L (21-32); Bilirubin Direct 0.1 mg/dL (0-0.2); Bilirubin Indirect, Calculated 0.1 mg/dL (0.2-0.8); Bilirubin Total 0.2 mg/dL (0.2-1.0); Glomerular Filtration Rate 88 ml/min (=/>90); Glucose Level 107 mg/dL (74-106); Magnesium 2.1 mg/dL (1.6-2.4); Sodium Level 139 mEq/L (136-145)
[2023-07-03 11:59] LABS: Troponin High Sensitivity < 3.0 pg/mL (<58.9)
[2023-07-03 12:09] LABS: Specific Gravity 1.005 (1.005-1.030)
[2023-07-03 12:18] LABS: Barbiturates NEGATIVE (NEGATIVE); Benzodiazepines NEGATIVE (NEGATIVE); Cocaine NEGATIVE (NEGATIVE); METHAMPHETAM NEGATIVE (NEGATIVE); Methadone NEGATIVE (NEGATIVE); Opiates NEGATIVE (NEGATIVE); Phencyclidine NEGATIVE (NEGATIVE); THC Cannibis NEGATIVE (NEGATIVE)
--- NOTE | 2023-07-03 12:26 | RAD REPORT ---
EXAM DESCRIPTION: CT - Head angio - 07/03/2023 11:59 am CLINICAL HISTORY: HEADACHE COMPARISON: Head Brain Wo Cont dated 07/03/2023 TECHNIQUE: Axial CT angiography images of the head was performed with multiplanar and maximum intens ity projection reconstructions. Images performed following intravenous administration of 100mL Isovue 370. All CT scans are performed using dose optimization technique as appropriate and may include automated exposure control or mA/KV adjustment according to patient size. FINDINGS: No evidence of large vessel occlusion. No evidence of aneurysm or dissection flap is detec arsh. No flow-limiting stenosis or vascular malformation identified. Antegrade flow is seen in the vertebral arteries. The vertebral arteries are codominant. The visualized dural venous sinuses are grossly patent. IMPRESSION: No evidence of large vessel occlusion or flow-limiting stenosis.
--- NOTE | 2023-07-03 12:31 | RAD REPORT ---
EXAM DESCRIPTION: CT - Neck Angio - 07/03/2023 11:59 am CLINICAL HISTORY: PAIN COMPARISON: Head angio dated 07/03/2023 TECHNIQUE: Axial CT angiography images of the head was performed with multiplanar and maximum intens ity projection reconstructions. Images performed following intravenous administration of 100mL Isovue 370. All CT scans are performed using dose optimization technique as appropriate and may include automated exposure control or mA/KV adjustment according to patient size. Quantification of carotid stenosis, if any, is performed according to NASCET criteria. FINDINGS: A left aortic arch is identified with normal three vessel configuration of the great vesse ls. No significant flow abnormality is seen of the common carotid bilaterally. No significant stenosis is identified involving the cervical segments of both internal carotid arteri es. Normal flow is seen within both vertebral arteries. IMPRESSION: No significant flow abnormality of the neck vessels is identified. CAROTID STENOSIS REFERENCE USING NASCET CRITERIA: % ICA stenosis = (1 - narrowest ICA diameter/diameter of distal cervical ICA) x 100. Mild - <50% stenosis. Moderate - 50-69% stenosis. Severe - 70-94% stenosis. Near occlusion - 95-99% stenosis. Occluded - 100% stenosis.
[2023-07-03] MEDS ORDERED: NA CHLORIDE 0.9% 1,000 ML ONE (12:44)
[2023-07-03] MEDS ORDERED: MAGNESIUM SULFATE 1 gm IVPB 1 GM/100 ML BAG IV ONE (12:44)
[2023-07-03] MEDS ORDERED: KETOROLAC 30 MG/ML INJ ONE (12:44)
[2023-07-03] MEDS ORDERED: dexAMETHasone 10 MG/ML VIAL ONE (12:44)
[2023-07-03 13:06] LABS: SARS-CoV-2 Antigen Rapid Res Negative (Negative)
--- NOTE | 2023-07-03 14:57 | EDPHYS ---
Physician Documentation [facility] Name: Lilliam Leahy Age: 42 yrs Sex: Female : 1980 Arrival Date: 07/03/2023 Time: 10:14 Bed 12 Private MD: Jose Castle ED Physician John Nolasco HPI: 07/03 11:17 This 42 yrs old Female presents to ER via Ambulatory with complaints of Headache. sb4 18:13 Patient reports an occipital headache that she has had for about a week now. She states sb4 it is associated with blurry vision and she has had some clear discharge from her nose and a bad taste in her mouth. She states that she was seen at [place] ED a few days ago and was just given a migraine cocktail without any work-up. She saw her PCP today who sent her to the ED for a CT scan. She denies any meningismus, fever, nausea, vomiting, abnormal gait. 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 - Social history:: Smoking status: Patient denies any tobacco usage or history of. ROS: 18:13 Constitutional: Negative for fever, chills, and weight loss. sb4 18:13 Neuro: Positive for headache, visual changes. 18:13 All other systems are negative. 18:13 ENT: Positive for nasal discharge. sb4 Exam: 18:13 Constitutional: This is a well developed, well nourished patient who is awake, alert, sb4 and in no acute distress. Head/Face: Normocephalic, atraumatic. Eyes: Extra-ocular motions intact. Periorbital areas with no swelling, redness, or edema. ENT: Mucous membranes moist. Cardiovascular: Regular rate and rhythm with a normal S1 and S2. Respiratory: Lungs have equal breath sounds bilaterally, clear to auscultation and percussion. No rales, rhonchi or wheezes noted. No increased work of breathing, no retractions or nasal flaring. Abdomen/GI: Soft, non-tender, no distension. Skin: Warm, dry with normal turgor. Normal color with no rashes, no lesions, and no evidence of cellulitis. MS/ Extremity: Pulses equal, no cyanosis. Neurovascular intact. Full, normal range of motion. Neuro: Awake and alert, GCS 15, oriented to person, place, time, and situation. Cranial nerves II-XII grossly intact. Motor strength 5/5 in all extremities. Sensory grossly intact. Cerebellar exam normal. Normal gait. Vital Signs: 10:26 BP 122 / 78; Pulse 68; Resp 18; Temp 97; Pulse Ox 100% ; ko1 12:20 BP 130 / 83 Supine; Pulse 62; ll1 12:22 BP 138 / 82 Sitting; Pulse 63; ll1 12:24 BP 123 / 84 Standing; Pulse 64; ll1 15:10 BP 129 / 85; Pulse 87; Resp 16; Temp 98.3; Pulse Ox 98% ; jl7 [place] Coma Score: 18:13 Eye Response: spontaneous(4). Motor Response: obeys commands(6). Verbal Response: sb4 oriented(5). Total: 15. MDM: 10:36 Patient medically screened. sb4 18:13 Differential diagnosis: cluster headache, cerebral vascular accident, hypertensive sb4 headache, intracerebral hemorrhage, meningitis, migraine, neoplasm, subarachnoid bleed, subdural hematoma, tension headache, vasomotor headache. Data reviewed: vital signs, nurses notes, lab test result(s), EKG, radiologic studies, and as a result, I will discharge patient. Consideration of Admission/Observation Escalation of care including admission/observation considered. Counseling: I had a detailed discussion with the patient and/or guardian regarding the historical points, exam findings, and any diagnostic results supporting the discharge/admit diagnosis, lab results, radiology results, the need for outpatient follow up, a neurologist, to return to the emergency department if symptoms worsen or persist or if there are any questions or concerns that arise at home. ED course: patient states headache and rhinorhea have resolved but blurry vision persists. workup is negative. advised to follow up with neurology and optometry. blurry vision likely secondary to aura from migraine. 07/03 10:57 Order name: Basic Metabolic Panel; Complete Time: 12:07 sb4 07/03 10:57 Order name: CBC with Diff; Complete Time: 11:38 sb4 07/03 10:57 Order name: Hepatic Function; Complete Time: 12:07 sb4 07/03 10:57 Order name: Magnesium; Complete Time: 12:07 sb4 07/03 10:57 Order name: Test, Urine; Complete Time: 12:11 sb4 07/03 10:57 Order name: Protime (+inr); Complete Time: 11:38 sb4 07/03 10:57 Order name: Ptt, Activated; Complete Time: 11:38 sb4 07/03 10:57 Order name: Troponin High Sensitivity; Complete Time: 12:07 sb4 07/03 10:57 Order name: UDS; Complete Time: 12:18 sb4 07/03 12:29 Order name: SARS RAPID; Complete Time: 13:09 sb4 07/03 12:29 Order name: Flu; Complete Time: 13:09 sb4 07/03 10:36 Order name: Head Brain Wo Cont CT; Complete Time: 11:26 sb4 07/03 11:27 Order name: CT Head Angio; Complete Time: 12:27 sb4 07/03 11:27 Order name: CT Neck Angio; Complete Time: 12:40 sb4 07/03 10:57 Order name: EKG; Complete Time: 10:58 sb4 07/03 10:57 Order name: Cardiac monitoring; Complete Time: 11:27 sb4 07/03 10:57 Order name: EKG - Nurse/Tech; Complete Time: 11:27 sb4 07/03 10:57 Order name: IV Saline Lock; Complete Time: 11:19 sb4 07/03 10:57 Order name: Labs collected and sent; Complete Time: 11:19 sb4 07/03 10:57 Order name: NPO; Complete Time: 11: sb4 07/03 10:57 Order name: O2 Per Protocol; Complete Time: 11:19 sb4 07/03 10:57 Order name: O2 Sat Monitoring; Complete Time: 11: sb4 07/03 10:57 Order name: Orthostatics; Complete Time: 12:22 sb4 EC:27 Rate is 64 beats/min. Rhythm is regular, Normal Sinus Rhythm. IN interval is normal at sb4 144 msec. QRS interval is normal at 88 msec. QT interval is normal at 418 msec. No Q waves. T waves are Normal. No ST changes noted. Clinical impression: Normal ECG. Interpreted by me. Reviewed by me. Administered Medications: 12:43 Drug: NS 0.9% IV 1000 ml Route: IV; Rate: 1 bolus; Site: left antecubital; ll1 14:00 Follow up: Response: No adverse reaction; IV Status: Completed infusion; IV Intake: jl7 1000ml 12:43 Drug: Magnesium Sulfate IVPB 1 grams Route: IVPB; Infused Over: 1 hrs; Site: left ll1 antecubital; 13:45 Follow up: Response: No adverse reaction; IV Status: Completed infusion jl7 12:43 Drug: Ketorolac IVP 15 mg Route: IVP; Site: left antecubital; ll1 15:16 Follow up: Response: No adverse reaction; Pain is decreased jl7 12:43 Drug: Decadron - Dexamethasone IVP 10 mg Route: IVP; Site: left antecubital; ll1 15:16 Follow up: Response: No adverse reaction jl7 Disposition: 15:52 Co-signature as Attending Physician, John Nolasco MD I reviewed the patient's care rt provided by the Advanced Practice Provider and agree with the diagnosis and treatment plan. Disposition Summary: 07/03/23 14:57 Discharge Ordered Location: Home sb4 Problem: new sb4 Symptoms: have improved sb4 Condition: Stable sb4 Diagnosis - Migraine with aura sb4 Followup: sb4 - With: Jose Castle, - When: As needed - Reason: Recheck today's complaints, Continuance of care, Re-evaluation by your physician Discharge Instructions: - Discharge Summary Sheet sb4 - Blurred Vision, Adult sb4 - Migraine Headache, [id number] sb4 Forms: - Medication Reconciliation Form sb4 - Thank You Letter sb4 - Antibiotic Education sb4 - Prescription Opioid Use sb4 - Patient Portal Instructions sb4 - Leadership Thank You Letter sb4 Prescriptions: - ketorolac 10 mg Oral tablet - take 1 tablet by ORAL route every 4 to 6 hours as needed for pain; do not sb4 exceed 4 doses per 24 hrs; 12 tablet; Refills: 0, Product Selection Permitted Signatures: Dispatcher [employer] EDAmna Mejia RN RN ll1 Raisa Diaz RN RN ko1 Radha Arteaga, PADanaC PADanaC sb4 John Nolasco MD MD rt Ashley Castellanos RN jl7
--- NOTE | 2023-07-03 14:57 | ER ---
Nurse's Notes [facility] Name: Lilliam Leahy Age: 42 yrs Sex: Female : 1980 Arrival Date: 07/03/2023 Time: 10: Bed 12 Private MD: Jose Castle Diagnosis: Migraine with aura Presentation: 07/03 10:26 Chief complaint: Patient states: PCP sent here for headache and nasal leakage. I need a ko1 CAT scan. Coronavirus screen: At this time, the client does not indicate any symptoms associated with coronavirus-19. Ebola Screen: No symptoms or risks identified at this time. Initial Sepsis Screen: Does the patient meet any 2 criteria? No. Patient's initial sepsis screen is negative. Does the patient have a suspected source of infection? No. Patient's initial sepsis screen is negative. Risk Assessment: Do you want to hurt yourself or someone else? Patient reports no desire to harm self or others. Onset of symptoms was July 03, 2023. 10:26 Method Of Arrival: Ambulatory ko1 10:26 Acuity: SOFY 3 ko1 Triage Assessment: 10:28 Headache History: Denies prior headaches. General: Appears in no apparent distress. ko1 Behavior is calm, cooperative, appropriate for age. Pain: Complains of pain in left parietal area, right parietal area, occipital area, base of the skull, left ear and right ear Pain currently is 4 out of 10 on a pain scale. Pain began 2weeks ago. Pain: Also complains of no other associated symptoms. Neuro: No deficits noted. 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 - Social history:: Smoking status: Patient denies any tobacco usage or history of. Screenin:45 [facility] ED Fall Risk Assessment (Adult) Score/Fall Risk Level 0 - 2 = Low Risk ll1 Oriented to surroundings, Maintained a safe environment, Educated pt \T\ family on fall prevention, incl call for assistance when getting out of bed, Hourly rounding (assess needs \T\ fall precautionary measures) done. Abuse screen: Denies threats or abuse. Nutritional screening: No deficits noted. Tuberculosis screening: No symptoms or risk factors identified. Assessment: 10:45 Reassessment: No changes from previously documented assessment. Patient and/or family ll1 updated on plan of care and expected duration. Pain level reassessed. Patient is alert, oriented x 3, equal unlabored respirations, skin warm/dry/pink. 11:27 Reassessment: No changes from previously documented assessment. Patient and/or family ll1 updated on plan of care and expected duration. Pain level reassessed. Patient is alert, oriented x 3, equal unlabored respirations, skin warm/dry/pink. 11:54 Reassessment: No changes from previously documented assessment. To CT via wheelchair. ll1 12:24 Reassessment: No changes from previously documented assessment. Patient and/or family ll1 updated on plan of care and expected duration. Pain level reassessed. Patient is alert, oriented x 3, equal unlabored respirations, skin warm/dry/pink. 13:07 Reassessment: No changes from previously documented assessment. Patient and/or family ll1 updated on plan of care and expected duration. Pain level reassessed. Patient is alert, oriented x 3, equal unlabored respirations, skin warm/dry/pink. Vital Signs: 10:26 BP 122 / 78; Pulse 68; Resp 18; Temp 97; Pulse Ox 100% ; ko1 12:20 BP 130 / 83 Supine; Pulse 62; ll1 12:22 BP 138 / 82 Sitting; Pulse 63; ll1 12:24 BP 123 / 84 Standing; Pulse 64; ll1 15:10 BP 129 / 85; Pulse 87; Resp 16; Temp 98.3; Pulse Ox 98% ; jl7 [place] Coma Score: 18:13 Eye Response: spontaneous(4). Motor Response: obeys commands(6). Verbal Response: sb4 oriented(5). Total: 15. ED Course: 10:17 Patient arrived in ED. mr 10:17 Jose Castle DO is Private Physician. mr 10:27 Triage completed. ko1 10:28 [facility]aga [facility] sb4 10:28 John Nolasco MD is Attending Physician. sb4 10:28 Arm band placed on right wrist. Patient placed in an exam room, Patient notified of ko1 wait time. 10:45 Amna Orr, RN is Primary Nurse. ll1 10:45 Patient has correct armband on for positive identification. Bed in low position. Call ll1 light in reach. Provided Education on: n/a. Cardiac monitoring not applicable on this patient. 10:50 Head Brain Wo Cont CT In Process Unspecified. EDMS 11:00 Inserted saline lock: 22 gauge in left antecubital area, using aseptic technique. Blood ll1 collected. 11:54 Urinalysis w/ reflexes Sent. ll1 11:54 UDS Sent. ll1 11:54 Test, Urine Sent. ll1 12:01 CT Head Angio In Process Unspecified. EDMS 12:01 CT Neck Angio In Process Unspecified. EDMS 14:56 Jose Castle DO is Referral Physician. sb4 15:15 No provider procedures requiring assistance completed. IV discontinued, intact, jl7 bleeding controlled, No redness/swelling at site. Pressure dressing applied. Administered Medications: 12:43 Drug: NS 0.9% IV 1000 ml Route: IV; Rate: 1 bolus; Site: left antecubital; ll1 14:00 Follow up: Response: No adverse reaction; IV Status: Completed infusion; IV Intake: jl7 1000ml 12:43 Drug: Magnesium Sulfate IVPB 1 grams Route: IVPB; Infused Over: 1 hrs; Site: left ll1 antecubital; 13:45 Follow up: Response: No adverse reaction; IV Status: Completed infusion jl7 12:43 Drug: Ketorolac IVP 15 mg Route: IVP; Site: left antecubital; ll1 15:16 Follow up: Response: No adverse reaction; Pain is decreased jl7 12:43 Drug: Decadron - Dexamethasone IVP 10 mg Route: IVP; Site: left antecubital; ll1 15:16 Follow up: Response: No adverse reaction jl7 Medication: 15:10 VIS not applicable for this client. jl7 Intake: 14:00 IV: 1000ml; Total: 1000ml. jl7 Outcome: 14:57 Discharge ordered by . sb4 15:15 Discharged to home ambulatory. jl7 15:15 Condition: stable 15:15 Discharge instructions given to patient, Instructed on discharge instructions, follow up and referral plans. medication usage, Demonstrated understanding of instructions, follow-up care, medications, Prescriptions given X 1. 15:17 Patient left the ED. jl7 Signatures: Dispatcher [employer] REJI Kaleb Theresa mr SchmidalAshley, RN RN jl7 Amna Orr RN RN ll1 Raisa Diaz, VITOR RN ko1 Radha Arteaga, MASTER PAJenifer sb4 Corrections: (The following items were deleted from the chart) 12:25 12:20 BP 130 / 83; Pulse 62bpm; ll1 ll1
[2023-07-03 15:28] VITALS: BP 129/85; TEMP 98.3; O2SAT 98
--- NOTE | 2023-07-04 16:36 | EKG ---
Test Date: 2023-07-03 Test Time: 11:24:59 Energy Conservation Representative: PURVI MEASUREMENT RESULTS: Intervals: Rate: 64 NC: 144 QRSD: 88 QT: 418 QTc: 431 [place]: P: 19 NC: 144 QRS: 50 T: 11 INTERPRETIVE STATEMENTS: Normal sinus rhythm Normal ECG No previous ECG available for comparison Electronically Signed On 07-04-23 16:32:28 CDT by Len Duran
== END 2023-07-03 15:17 | disposition home or self-care (01) ==
LOC: ER 10:14
DX: G43.109 Migraine with aura, not intractable, without status migrainosus (principal); Z20.822 Contact with and (suspected) exposure to COVID-19; Z88.0 Allergy status to penicillin
CPT/HCPCS: 96365; 93005; 85025; 80048; 36415; 83735; 81025; 85610; 80076; 85730; 84484; 80307; 87804 ×2; 70450; 70496; 70498; 96375; 99284; 87811; Q9967; J3475; J1100; J7030

== ENCOUNTER → 2023-12-10 | Emergency (ER) | payer SELFPAY ==
--- OUTSIDE RECORDS SUMMARY | 2023-12-10 11:48 | XMS REPORT | Clinical Summary ---
Author Name Unknown Organization [facility] Address [address] [place] [address] Care Team Providers [employer] Platform Supervisor Name Role Phone Unavailable Primary Care Provider Unavailabl e Encounters Date Type Department Care Team Description 07/04/2023 Travel after 12/10/2022 Social History Tobacco Use Types Packs/Day Years Used Date Smoking Tobacco: Never Assessed Sex and Gender Information Value Date Recorded Sex Assigned at Not on file Gender Identity Not on file Sexual Orientation Not on file Plan of Treatment Not on file
--- NOTE | 2023-12-10 12:10 | ER ---
Nurse's Notes [facility] Name: Lilliam Leahy Age: 42 yrs Sex: Female : 1980 Arrival Date: 12/10/2023 Time: 11:45 Bed IW1 Private MD: Diagnosis: Other acute sinusitis Presentation: 12/10 11:59 Chief complaint: Patient states: has pressure in her ears and I feel fluid in them, my iw head is hurting, sneezing, throat feels swollen , my ears have been hurting for a week , everything else started yesterday. Coronavirus screen: Client presents with at least one sign or symptom that may indicate coronavirus-19. Ebola Screen: Patient negative for fever greater than or equal to 101.5 degrees Fahrenheit, and additional compatible Ebola Virus Disease symptoms Patient denies exposure to infectious person. Patient denies travel to an Ebola-affected area in the 21 days before illness onset. No symptoms or risks identified at this time. Initial Sepsis Screen: Does the patient meet any 2 criteria? No. Patient's initial sepsis screen is negative. Does the patient have a suspected source of infection? No. Patient's initial sepsis screen is negative. Risk Assessment: Do you want to hurt yourself or someone else? Patient reports no desire to harm self or others. Onset of symptoms was December 03, 2023. 11:59 Method Of Arrival: Ambulatory iw 11:59 Acuity: SOFY 4 iw Historical: - Allergies: 12:01 PENICILLINS; iw - Home Meds: 12:01 gabapentin oral [Active]; Trazodone Oral [Active]; Estradiol Oral [Active]; Flexeril iw Oral [Active]; - PMHx: 12:01 Fibromyalgia; Hypercholesterolemia; scoliosis; iw - PSHx: 12:01 back sx; hysterectomy; Tonsillectomy; Total abdominal hysterectomy; iw Vital Signs: 11:59 BP 118 / 77; Pulse 90; Resp 16; Temp 97.8; Pulse Ox 100% on R/A; Weight 81.65 kg; iw Height 5 ft. 4 in. ; Pain 10/29; 11:59 Body Mass Index 30.90 (81.65 kg, 162.56 cm) iw 11:59 Pain Scale: Adult ED Course: 11:49 Patient arrived in ED. ra3 11:54 Bogdan Coley MD is Attending Physician. ec2 12:01 Triage completed. iw 12:03 Arm band placed on. iw 12:24 Lady Garcia RN is Primary Nurse. iw Administered Medications: No medications were administered Outcome: 12:09 Discharge ordered by . ec2 12:24 Patient left the ED. iw Signatures: Lady Garcia RN RN iw Bogdan Coley MD MD ec2 Zoila Rios ra3
--- NOTE | 2023-12-10 12:10 | EDPHYS ---
Physician Documentation [facility] Name: Lilliam Leahy Age: 42 yrs Sex: Female : 1980 Arrival Date: 12/10/2023 Time: 11:45 Bed IW1 Private MD: ED Physician Bogdan Coley HPI: 12/10 12:11 This 42 yrs old Female presents to ER via Ambulatory with complaints of Sinus ec2 Pain, Ear Pain. 12:11 Proximately 10 days of symptoms. Patient reports that she has been having bilateral ear ec2 pain, sinus pain, nasal drainage. Patient reports cough and cold symptoms. Reports no vomiting or diarrhea, no issues with p.o. intake. Patient reports no shortness of breath.. Historical: - Allergies: 12:01 PENICILLINS; iw - Home Meds: 12:01 gabapentin oral [Active]; Trazodone Oral [Active]; Estradiol Oral [Active]; Flexeril iw Oral [Active]; - PMHx: 12:01 Fibromyalgia; Hypercholesterolemia; scoliosis; iw - PSHx: 12:01 back sx; hysterectomy; Tonsillectomy; Total abdominal hysterectomy; iw ROS: 12:12 Constitutional: as per hpi ec2 Exam: 12:13 Constitutional: GEN: NAD Head: atraumatic Eyes: EOMI Ears: External ears are ec2 normal. CV: regular rate LUNGS: no respiratory distress ABD: non-distended SKIN: no evidence of rashes MSK: no evidence of trauma NEURO: moves all extremities equally Vital Signs: 11:59 BP 118 / 77; Pulse 90; Resp 16; Temp 97.8; Pulse Ox 100% on R/A; Weight 81.65 kg; iw Height 5 ft. 4 in. ; Pain 10/29; 11:59 Body Mass Index 30.90 (81.65 kg, 162.56 cm) iw 11:59 Pain Scale: Adult iw MDM: 12:09 Patient medically screened. ec2 12:12 Data reviewed: vital signs. ED course: Patient arrives today for URI signs and ec2 symptoms. Examination remarkable for well-appearing nontoxic individual is otherwise in no acute distress. Given duration of symptoms, will start the patient on antibiotics given concern for possible bacterial sinusitis. Additionally considered other process such as viral infections. Will discharge home. Return precautions given. Do not feel lab work will be beneficial setting given the patient's well appearance and reassuring vital signs. Will defer any lab work such as CBC or BMP, accordingly will also defer any chest x-ray given reassuring lung sounds.. Administered Medications: No medications were administered Disposition Summary: 12/10/23 12:09 Discharge Ordered Notes: Location: Home ec2 Condition: Stable ec2 Diagnosis - Other acute sinusitis ec2 Followup: ec2 - With: Private Physician - When: - Reason: Re-evaluation by your physician Discharge Instructions: - Discharge Summary Sheet ec2 - Sinusitis, Adult ec2 Forms: - Work release form ec2 - Medication Reconciliation Form ec2 - Thank You Letter ec2 - Antibiotic Education ec2 - Prescription Opioid Use ec2 - Patient Portal Instructions ec2 - Leadership Thank You Letter ec2 Prescriptions: - azithromycin 250 mg Oral tablet - take 1 dose pack ORAL route as directed on dose pack For 250 mg dose pack: take ec2 500 mg today (day 1), then 250 mg for 4 days (days 2-5); 1 unit; Refills: 0, Product Selection Permitted Signatures: Lady Garcia RN RN iw Bogdan Coley MD MD ec2
[2023-12-10 12:29] VITALS: BP 118/77; TEMP 97.8; O2SAT 100
== END ==
LOC: ER 11:45
DX: J01.80 Other acute sinusitis (principal); Z88.0 Allergy status to penicillin

== ENCOUNTER → 2023-12-17 | Emergency (ER) | payer SELFPAY ==
--- OUTSIDE RECORDS SUMMARY | 2023-12-17 15:01 | XMS REPORT | Clinical Summary ---
Author Name Unknown Organization [facility] [place] Address [address] [place] [address] Care Team Providers Care Pearl Glue Drier Name Role Phone Unavailable Primary Care Provider Unavailabl e Encounters Date Type Department Care Team Description 07/04/2023 Travel after 12/17/2022 Social History Tobacco Use Types Packs/Day Years Used Date Smoking Tobacco: Never Assessed Sex and Gender Information Value Date Recorded Sex Assigned at Not on file Gender Identity Not on file Sexual Orientation Not on file Plan of Treatment Not on file
--- NOTE | 2023-12-17 15:14 | EDPHYS ---
Physician Documentation [facility] Name: Lilliam Leahy Age: 42 yrs Sex: Female : 1980 Arrival Date: 12/17/2023 Time: 14:57 Bed IW3 Private MD: Jose Castle ED Physician Deng Bragg HPI: 12/17 15:12 This 42 yrs old Female presents to ER via Ambulatory with complaints of Sore Throat, kb Ear Pain, Jaw swelling. 15:19 Pt is a 42 year old female who presents for right lower toothache with gum swelling kb that radiates to right throat and ear. States symptoms started over a week ago. Was seen here at onset of symptoms and given a z-pack but symptoms have persisted after completion of antibiotics. Pt states she normally gets clindamycin for tooth infections like this. States she has not tried to follow up with a dentist yet. Denies fever. Historical: - Allergies: 15:10 PENICILLINS; iw - PMHx: 15:10 Fibromyalgia; Hypercholesterolemia; scoliosis; iw - PSHx: 15:10 back sx; hysterectomy; Tonsillectomy; Total abdominal hysterectomy; iw - Immunization history:: Adult Immunizations unknown. - Social history:: Smoking status: unknown. ROS: 15:19 Constitutional: Negative for fever, chills, and weight loss, kb 15:19 ENT: Positive for dental pain, ear pain, sore throat, 15:19 All other systems are negative, Exam: 15:19 Constitutional: This is a well developed, well nourished patient who is awake, alert, kb and in no acute distress. Head/Face: Normocephalic, atraumatic. Cardiovascular: Regular rate Respiratory: Respirations even and unlabored. No increased work of breathing. Talking in full sentences Skin: Warm, dry with normal turgor. Normal color. MS/ Extremity: Pulses equal, no cyanosis. Neurovascular intact. Full, normal range of motion. Neuro: Awake and alert, GCS 15, oriented to person, place, time, and situation. Moves all extremities. Normal gait. 15:19 ENT: External ear(s): are unremarkable, Ear canal(s): are normal, TM's: are normal, Nose: is normal, Posterior pharynx: is normal, Dental exam: gum swelling, that is mild, that is moderate, specifically in the lower right second molar (#31), pain, Vital Signs: 15:09 BP 124 / 92; Pulse 93; Resp 16; Temp 98.3; Pulse Ox 100% on R/A; iw MDM: 15:03 Patient medically screened. kb 15:12 Differential diagnosis: dental caries, gingivitis, dental abscess, pericoronitis. Data kb reviewed: vital signs, nurses notes. Counseling: I had a detailed discussion with the patient and/or guardian regarding the historical points, exam findings, and any diagnostic results supporting the discharge/admit diagnosis, the need for outpatient follow up, a dentist, to return to the emergency department if symptoms worsen or persist or if there are any questions or concerns that arise at home. Administered Medications: No medications were administered Disposition Summary: 12/17/23 15:13 Discharge Ordered Notes: Location: Home kb Condition: Stable kb Diagnosis - Other specified disorders of teeth and supporting structures kb Followup: kb - With: Emergency Department - When: As needed - Reason: Worsening of condition Followup: kb - With: Private Physician - When: 2 - 3 days - Reason: Recheck today's complaints, Continuance of care, Re-evaluation by your physician Discharge Instructions: - Discharge Summary Sheet kb - Dental Pain, [id number] kb - Dental Abscess, [id number] kb Forms: - Medication Reconciliation Form kb - Thank You Letter kb - Antibiotic Education kb - Prescription Opioid Use kb - Patient Portal Instructions kb - Leadership Thank You Letter kb Prescriptions: - Clindamycin HCl 300 mg Oral Capsule - take 1 capsule ORAL route every 6 hours for 10 days; 40 capsule; Refills: 0, kb Product Selection Permitted - Diflucan 150 mg Oral tablet - take 1 tablet ORAL route one time for 1 day may repeat dose in 3 days if kb symptoms persist; 2 tablet; Refills: 0, Product Selection Permitted Signatures: Saritha Stiles FNP-C FNP-Lady Conley, RN RN iw
--- NOTE | 2023-12-17 15:14 | ER ---
Nurse's Notes [facility] Name: Lilliam Leahy Age: 42 yrs Sex: Female : 1980 Arrival Date: 12/17/2023 Time: 14:57 Bed IW3 Private MD: Jose Castle Diagnosis: Other specified disorders of teeth and supporting structures Presentation: 12/17 15:10 Coronavirus screen: At this time, the client does not indicate any symptoms associated iw with coronavirus-19. Ebola Screen: Patient negative for fever greater than or equal to 101.5 degrees Fahrenheit, and additional compatible Ebola Virus Disease symptoms Patient denies exposure to infectious person. Patient denies travel to an Ebola-affected area in the 21 days before illness onset. No symptoms or risks identified at this time. Initial Sepsis Screen: Does the patient meet any 2 criteria? No. Patient's initial sepsis screen is negative. Does the patient have a suspected source of infection? No. Patient's initial sepsis screen is negative. Risk Assessment: Do you want to hurt yourself or someone else? Patient reports no desire to harm self or others. 15:10 Acuity: SOFY 4 iw 15:10 Method Of Arrival: Ambulatory iw 15:11 Chief complaint: Patient states: bad tooth on right lower jaw. Onset of symptoms was iw December 17, 2023. Triage Assessment: 15:12 General: Appears in no apparent distress. Behavior is calm, cooperative. iw Historical: - Allergies: 15:10 PENICILLINS; iw - PMHx: 15:10 Fibromyalgia; Hypercholesterolemia; scoliosis; iw - PSHx: 15:10 back sx; hysterectomy; Tonsillectomy; Total abdominal hysterectomy; iw - Immunization history:: Adult Immunizations unknown. - Social history:: Smoking status: unknown. Screenin:13 [facility] ED Fall Risk Assessment (Adult) Score/Fall Risk Level. Abuse screen: Denies iw threats or abuse. Denies injuries from another. Nutritional screening: No deficits noted. Tuberculosis screening: No symptoms or risk factors identified. Assessment: 15:12 Pain: Complains of pain in right cheek and right jaw. Neuro: Level of Consciousness is iw awake, alert, obeys commands, Oriented to person, place, time, situation, Moves all extremities. Full function. Cardiovascular: Patient's skin is warm and dry. Respiratory: Airway is patent Respiratory effort is even, unlabored, Breath sounds are clear bilaterally. EENT: Throat. Derm: Skin is intact, is healthy with good turgor. Musculoskeletal: Range of motion: intact in all extremities. Vital Signs: 15:09 BP 124 / 92; Pulse 93; Resp 16; Temp 98.3; Pulse Ox 100% on R/A; iw ED Course: 15:00 Patient arrived in ED. mr 15:01 Jose Castle DO is Private Physician. mr 15:02 Saritha Stiles FNP-C is [facility]. kb 15:02 Deng Bragg MD is Attending Physician. kb 15:10 Arm band placed on. iw 15:11 Triage completed. iw 15:12 Patient has correct armband on for positive identification. Provided Education on: . iw 15:13 Lady Garcia, RN is Primary Nurse. iw 15:16 No provider procedures requiring assistance completed. Patient did not have IV access iw during this emergency room visit. Administered Medications: No medications were administered Medication: 15:13 VIS not applicable for this client. iw Outcome: 15:13 Discharge ordered by MD. kb 15:16 Discharged to home ambulatory, with family, iw 15:16 Condition: good 15:16 Condition: good 15:16 Discharge instructions given to patient, Instructed on discharge instructions, follow up and referral plans. medication usage, Demonstrated understanding of instructions, follow-up care, medications, Prescriptions given X 2, 15:17 Patient left the ED. iw Signatures: Saritha Stiles FNP-C INVESTMENT EXECUTIVE-Ckb Theresa Manuel, Reg Reg Lady Garcia, RN RN iw Corrections: (The following items were deleted from the chart) 15:10 15:09 Pulse 93bpm; Resp 16bpm; Pulse Ox 100% RA; Temp 98.3F; iw iw
[2023-12-17 15:25] VITALS: BP 124/92; TEMP 98.3; O2SAT 100
== END ==
LOC: ER 14:57
DX: K08.89 Other specified disorders of teeth and supporting structures (principal); R07.0 Pain in throat; Z88.0 Allergy status to penicillin

== ENCOUNTER → 2024-01-11 | Emergency (ER) | payer SELFPAY ==
--- OUTSIDE RECORDS SUMMARY | 2024-01-11 15:26 | XMS REPORT | Clinical Summary ---
Author Name Unknown Organization [facility] [place] Address [address] [place] [address] Care Team Providers Care Mailroom Courier Name Role Phone Unavailable Primary Care Provider Unavailabl e Encounters Date Type Department Care Team Description 07/04/2023 Travel after 01/11/2023 Social History Tobacco Use Types Packs/Day Years Used Date Smoking Tobacco: Never Assessed Sex and Gender Information Value Date Recorded Sex Assigned at Not on file Gender Identity Not on file Sexual Orientation Not on file Plan of Treatment Not on file
--- NOTE | 2024-01-11 16:37 | RAD REPORT ---
EXAM DESCRIPTION: RAD - Humerus Left - 01/11/2024 4:27 pm CLINICAL HISTORY: PAIN COMPARISON: No comparisons TECHNIQUE: Left Humerus, 3 views. FINDINGS: No fracture is identified. There is no dislocation or periosteal reaction noted. No forei gn body or other soft tissue abnormality. IMPRESSION: Negative left humerus examination.
--- NOTE | 2024-01-11 16:37 | RAD REPORT ---
EXAM DESCRIPTION: RAD - Foot Right 3 View - 01/11/2024 4:27 pm CLINICAL HISTORY: PAIN COMPARISON: No comparisons TECHNIQUE: Right foot, 3 views. FINDINGS: No fracture, dislocation or periosteal reaction. No air or foreign body in the soft tissues. IMPRESSION: Negative right foot examination.
--- NOTE | 2024-01-11 16:54 | EDPHYS ---
Physician Documentation [facility] Name: Lilliam Leahy Age: 43 yrs Sex: Female : 1980 Arrival Date: 01/11/2024 Time: 15:23 Bed 12 Private MD: ED Physician Drake Guajardo HPI: 01/10 16:55 This 43 yrs old Female presents to ER via Ambulatory with complaints of Fall Injury, kb Foot Injury, Shoulder Injury. 16:55 Pt is a 43 year old female who presents for right foot and left upper arm pain that kb started after falling 4 days ago. Denies hitting head, loc. States she had been sitting for a while and her foot fell asleep. States she twisted her foot when she stood up and that caused her to fall. DISCHARGE RN: 16:30 LMP N/A - Hysterectomy, Not hb Historical: - Allergies: 15:55 PENICILLINS; nj1 - Home Meds: 16:12 estradiol Oral [Active]; Flexeril Oral [Active]; gabapentin oral [Active]; Trazodone hb Oral [Active]; - PMHx: 15:55 Fibromyalgia; Hypercholesterolemia; scoliosis; nj1 - PSHx: 15:55 back sx; hysterectomy; Tonsillectomy; Total abdominal hysterectomy; nj1 - Immunization history:: Client reports having NOT received the Covid vaccine. - Social history:: Smoking status: Patient reports the use of cigarette tobacco products, smokes one pack cigarettes per day. ROS: 16:53 Constitutional: As per HPI kb Exam: 16:53 Constitutional: This is a well developed, well nourished patient who is awake, alert, kb and in no acute distress. Head/Face: Normocephalic, atraumatic. ENT: Moist Mucous membranes Cardiovascular: Regular rate Respiratory: Respirations even and unlabored. No increased work of breathing. Talking in full sentences Skin: Warm, dry with normal turgor. Normal color. Neuro: Awake and alert, GCS 15, oriented to person, place, time, and situation. Moves all extremities. Normal gait. 16:53 Musculoskeletal/extremity: Extremities: grossly normal except: noted in the lateral side of right foot: pain, tenderness, noted in the anterior aspect of left shoulder and left upper arm: pain, tenderness, ROM: intact in all extremities, Circulation is intact in all extremities. Sensation intact. Vital Signs: 15:53 BP 135 / 90; Pulse 90; Resp 17; Temp 96.8(TE); Pulse Ox 100% ; Weight 77.11 kg; Height nj1 5 ft. 4 in. ; Pain 5/10; 15:53 Body Mass Index 29.18 (77.11 kg, 162.56 cm) nj1 15:53 Pain Scale: Adult nj1 MDM: 16:04 Patient medically screened. kb 16:54 Differential diagnosis: abrasion, contusion, fracture, sprain, strain. Data reviewed: kb vital signs, nurses notes. Counseling: I had a detailed discussion with the patient and/or guardian regarding the historical points, exam findings, and any diagnostic results supporting the discharge/admit diagnosis, radiology results, the need for outpatient follow up, a family practitioner, to return to the emergency department if symptoms worsen or persist or if there are any questions or concerns that arise at home. 01/10 16:10 Order name: Humerus Left XRAY; Complete Time: 16:39 kb 01/10 16:10 Order name: Foot Right 3 View XRAY; Complete Time: 16:39 kb Administered Medications: No medications were administered Disposition Summary: 01/11/24 16:53 Discharge Ordered Notes: Location: Home kb Condition: Stable kb Diagnosis - Fall on same level, unspecified kb - Pain in right foot kb - Pain in left upper arm kb Followup: kb - With: Emergency Department - When: As needed - Reason: Worsening of condition Followup: kb - With: Private Physician - When: 2 - 3 days - Reason: Recheck today's complaints, Continuance of care, Re-evaluation by your physician Discharge Instructions: - Discharge Summary Sheet kb - Musculoskeletal Pain kb - Contusion, [id number] kb Forms: - Medication Reconciliation Form kb - Thank You Letter kb - Antibiotic Education kb - Prescription Opioid Use kb - Patient Portal Instructions kb - Leadership Thank You Letter kb Signatures: Dispatcher [employer] Saritha Morris FNP-C FNP-Jocelynn Madsen, RN RN Radha Leroy RN RN nj1
--- NOTE | 2024-01-11 16:54 | ER ---
Nurse's Notes [facility] Name: Lilliam Leahy Age: 43 yrs Sex: Female : 1980 Arrival Date: 01/11/2024 Time: 15:23 Bed 12 Private MD: Diagnosis: Fall on same level, unspecified;Pain in right foot;Pain in left upper arm Presentation: 01/10 15:53 Chief complaint: Patient states: Left shoulder, right food pain since after a [facility] fall. Getting worse. Has not taken anything OTC for it. Able to ambulate. Coronavirus screen: Vaccine status: Patient reports being unvaccinated. Ebola Screen: Patient denies travel to an Ebola-affected area in the 21 days before illness onset. Initial Sepsis Screen: Does the patient meet any 2 criteria? No. Patient's initial sepsis screen is negative. Does the patient have a suspected source of infection? No. Patient's initial sepsis screen is negative. Risk Assessment: Do you want to hurt yourself or someone else? Patient reports no desire to harm self or others. Onset of symptoms was January 08, 2024. 15:53 Method Of Arrival: Ambulatory [facility] 15:53 Acuity: SOFY 4 [facility] JANITOR SUPERVISOR: 16:30 LMP N/A - Hysterectomy, Not hb Historical: - Allergies: 15:55 PENICILLINS; [facility] - Home Meds: 16:12 estradiol Oral [Active]; Flexeril Oral [Active]; gabapentin oral [Active]; Trazodone hb Oral [Active]; - PMHx: 15:55 Fibromyalgia; Hypercholesterolemia; scoliosis; [facility] - PSHx: 15:55 back sx; hysterectomy; Tonsillectomy; Total abdominal hysterectomy; [facility] - Immunization history:: Client reports having NOT received the Covid vaccine. - Social history:: Smoking status: Patient reports the use of cigarette tobacco products, smokes one pack cigarettes per day. Screenin:12 [facility] ED Fall Risk Assessment (Adult) History of falling in the last 3 months, hb including since admission No falls in past 3 months (0 pts) Confusion or Disorientation No (0 pts) Intoxicated or Sedated No (0 pts) Impaired Gait No (0 pts) Mobility Assist Device Used No (0 pt) Altered Elimination No (0 pt) Score/Fall Risk Level 0 - 2 = Low Risk Oriented to surroundings, Maintained a safe environment, Educated pt \T\ family on fall prevention, incl call for assistance when getting out of bed. Abuse screen: Denies threats or abuse. Denies injuries from another. Nutritional screening: No deficits noted. Tuberculosis screening: No symptoms or risk factors identified. Assessment: 16:11 General: Appears in no apparent distress. uncomfortable, Behavior is calm, cooperative. hb Pain: Pain currently is 5 out of 10 on a pain scale. Neuro: Level of Consciousness is awake, alert, obeys commands, Oriented to person, place, time, situation. Cardiovascular: Patient's skin is warm and dry. Respiratory: Respiratory effort is even, unlabored, Respiratory pattern is regular, symmetrical. GI: No signs and/or symptoms were reported involving the gastrointestinal system. : No signs and/or symptoms were reported regarding the genitourinary system. EENT: No signs and/or symptoms were reported regarding the EENT system. Derm: Skin is pink, warm \T\ dry. Musculoskeletal: Reports left shoulder and right foot pain. 17:03 Reassessment: Patient appears in no apparent distress at this time. Patient and/or hb family updated on plan of care and expected duration. Pain level reassessed. Patient is alert, oriented x 3, equal unlabored respirations, skin warm/dry/pink. Vital Signs: 15:53 BP 135 / 90; Pulse 90; Resp 17; Temp 96.8(TE); Pulse Ox 100% ; Weight 77.11 kg; Height nj1 5 ft. 4 in. ; Pain 5/10; 15:53 Body Mass Index 29.18 (77.11 kg, 162.56 cm) nj1 15:53 Pain Scale: Adult nj1 ED Course: 15:25 Patient arrived in ED. mr 15:55 Triage completed. nj1 15:56 Arm band placed on right wrist. nj1 16:04 Saritha Stiles FNP-C is [facility]. kb 16:04 Drake Guajardo MD is Attending Physician. kb 16:10 Jocelynn Luna, VITOR is Primary Nurse. hb 16:12 Patient has correct armband on for positive identification. Bed in low position. Call hb light in reach. Provided Education on: tests, result times. 16:29 Humerus Left XRAY In Process Unspecified. EDMS 16:29 Foot Right 3 View XRAY In Process Unspecified. EDMS 17:03 No provider procedures requiring assistance completed. Patient did not have IV access hb during this emergency room visit. Administered Medications: No medications were administered Medication: 16:12 VIS not applicable for this client. hb Outcome: 16:53 Discharge ordered by . kb 17:03 Discharged to home ambulatory, hb 17:03 Condition: stable 17:03 Discharge instructions given to patient, Instructed on discharge instructions, follow up and referral plans. medication usage, Demonstrated understanding of instructions, follow-up care, medications, 17:04 Patient left the ED. hb Signatures: Dispatcher [employer] EDMS Saritha Stiles, CAR JOCKEY-C CAR JOCKEY-Ckb Theresa Manuel, Reg Reg mr Jocelynn Luna, RN RN Radha Leroy RN RN nj1
[2024-01-11 17:34] VITALS: BP 135/90; TEMP 96.8; O2SAT 100
== END ==
LOC: ER 15:23
DX: M79.671 Pain in right foot (principal); M79.622 Pain in left upper arm; W18.30XA Fall on same level, unspecified, initial encounter
CPT/HCPCS: 99282

== ENCOUNTER 2024-02-20 12:18 | Emergency (ER) | payer SELFPAY ==
--- OUTSIDE RECORDS SUMMARY | 2024-02-20 12:21 | XMS REPORT | Clinical Summary ---
Author Name Unknown Organization [facility] [place] Address [address] [place] [address] Care Team Providers Care Security Messenger Name Role Phone Unavailable Primary Care Provider Unavailabl e Encounters Date Type Department Care Team Description 07/04/2023 Travel after 02/20/2023 Social History Tobacco Use Types Packs/Day Years Used Date Smoking Tobacco: Never Assessed Sex and Gender Information Value Date Recorded Sex Assigned at Not on file Gender Identity Not on file Sexual Orientation Not on file Job Start Date Occupation Industry Not on file Not on file Not on file Plan of Treatment Health Maintenance Due Date Last Done Comments COVID-19 Vaccine (#1) 06/22/1980 Influenza Vaccine 06/20/2024 07/25/2023
[2024-02-21 14:42] VITALS: BP 106/67; TEMP 98.2; O2SAT 100
== END 2024-02-20 13:00 | disposition home or self-care (01) ==
LOC: ER 12:18
DX: J06.9 Acute upper respiratory infection, unspecified (principal)
CPT/HCPCS: 99282